=== PATIENT | female | born 1995 | race Caucasian/White ===

== ENCOUNTER → 2022-03-10 | Outpatient (CLI) | payer MEDICAID, SELFPAY ==
[2022-03-10 16:12] LABS: Amphetamine Urine VISTA NEGATIVE (<1000 ng/mL); Barbiturate Urine VISTA NEGATIVE (< 200 ng/mL); Benzodiazepine Urine VISTA NEGATIVE (< 200 ng/mL); Cocaine Urine VISTA NEGATIVE (< 300 ng/mL); Ecstacy Urine VISTA NEGATIVE (< 500 ng/mL); Methadone Urine VISTA NEGATIVE (< 300 ng/mL); PCP Urine VISTA NEGATIVE (< 25 ng/mL); THC Urine VISTA NEGATIVE (< 50 ng/mL); Vista UDS pH Range 7
[2022-03-13 14:08] LABS: Chlamydia By Nucleic Acid AMP Negative (Negative)
[2022-03-13 14:12] LABS: Gonococcus By Nucleic Acid AMP Negative (Negative)
[2022-03-18 15:07] LABS: HPV Reflexed? NOT INDICATED
== END | disposition home or self-care (01) ==
PROVIDERS: Referring Provider Obstetrics & Gynecology; Visit Provider Obstetrics & Gynecology
DX: Z34.90 Encounter for supervision of normal pregnancy, unspecified, unspecified trimester (principal)
CPT/HCPCS: 80307; 87086; 87088; 87491; 87591; 88175; G0145

== ENCOUNTER → 2022-06-02 | Outpatient (CLI) | payer MEDICAID, SELFPAY ==
[2022-06-02 14:31] LABS: Absolute Lymphocyte Count 1.66 X10^3/uL (0.83-4.51); Basophil# 0.02 X10^3/uL; Basophil% 0.2 % (0-1); Eosinophil# 0.14 X10^3/uL; Eosinophils% 1.4 % (0-5); Hematocrit 34.5 % (37-47); Hemoglobin 11.6 g/dL (12.0-15.0); Lymphocyte # 1.66 X10^3/ul (0.83-4.51); Lymphocyte % 16.1 % (19-41); Mean Corp Hgb Conc 33.6 g/dL (32-36); Mean Corpuscular Hgb 31.1 pg (27.0-32.0); Mean Corpuscular Volume 92.5 fL (81-99); Mean Platelet Vol. 9.3 fl (6.2-12.0); Monocyte# 0.43 X10^3/uL; Monocyte% 4.2 % (0-10); NRBC Flagged by Analyzer 0 % (0-5); Neutrophil # 8.03 X10^3/uL (2.7-7.7); Neutrophil % 77.7 % (47-70); Platelet Count 251 K/mm3 (150-450); RBC Distribution Width SD 44.1 fl (35.1-43.9); Red Blood Count 3.73 M/mm3 (4.2-5.4); White Blood Count 10.3 K/mm3 (4.4-11.0)
[2022-06-02 14:47] LABS: Glucose Challenge Gest 1H 50g 125 mg/dL (70-140)
[2022-06-02 15:49] LABS: HIV - WCH Non-Reactive (Nonreactive); Hepatitis B Surface Antigen Non-Reactive (Nonreactive); Hepatitis C Antibody Non-Reactive (Nonreactive); Rubella IgG Non-Reactive (Nonreactive); Syphilis Antibodies Non-reactive
== END | disposition home or self-care (01) ==
LOC: PAVLAB 13:55 → LAB 13:56
PROVIDERS: Obstetrics & Gynecology; Referring Provider Obstetrics & Gynecology; Visit Provider Obstetrics & Gynecology
DX: Z34.90 Encounter for supervision of normal pregnancy, unspecified, unspecified trimester (principal)
CPT/HCPCS: 36415; 82950; 85025; 86703; 86762; 86780; 86803; 86850; 86900; 86901; 87340

== ENCOUNTER → 2022-08-26 | Outpatient (CLI) | payer MEDICAID, SELFPAY ==
--- NOTE | 2022-09-17 05:28 | HP.PCM.OB_ITS ---
HPI - General HPI Narrative MAREK GALINDO, is a 26 F who presents IAL 10 cm dilated and delivere precipitously Maternal Data Information MILENA Calculator Estimated Delivery Date Method Current WG Current Estimate 09/22/22 LMP (Certain) 39w 2d PFSH PFSH Home Medications multivitamin no.47-iron fum 27 mg-folate no.1 1 mg-dha 300 mg capsule (PNV-DHA) cap PO 03/03/22 [History Last Taken Unknown] Allergy/AdvReac Type Severity Reaction Status Date / Time No Known Allergies Allergy Verified 09/14/22 10:55 Social History adopted: No household members: spouse and children housing: house number of children: 1 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: No pets and animals: No history of recent travel: Yes (December) out of state: Yes out of country: No sexually active: Yes Smoking Status: Never smoker second hand exposure: No alcohol intake: former details: social occasions substance use type: does not use diet: gluten free and lactose free well-balanced diet: daily or most days caffeine: No eating out: 1-3 times/week during the past year weight has: remained stable what type of physical activity do you participate in: walking frequency: 3-4 times per week duration: 45-60 minutes/day dustin/sikh: [employer] seatbelt use: always do you feel safe at home: Yes additional social history: Spouse - Raciel History 2 Elective abortions Hx Para 1 Spontaneous abortions Hx # Term Pregnancies Ectopic pregnancies Hx # Pregnancies Multiple births # of living children 1 Past Pregnancies Del. Date Name GA/Weeks Outcome Route Bth Weight Infant Gen Labor Lgth Anesthesia Del Locatn Provider FOB Unknown 06/16/20 [place] 40 live - full term [facility] [address] [facility] [address] [facility] Delivery Date: Last Updated by: Hannah Strickland Emergency csection due to decels during pushing Visit Details Expected Delivery Route/Plan Labor Preferences- wants to . patient counseled regarding risks/benefits of trial of labor versus repeat . ACOG/uptodate education given to patient. 71% likelihood of success per calculator TOLAC consent form signed: [] CB/BF classes: no labor support person: Raciel labor intervention preferences: [] pain management options preferred: epidural cut cord/dad catch: yes : plans PP control planned: discussed and declines discussed possible routes of delivery and associated risks: [] special requests: [] Plans Covid status: discussed Flu vaccine: discussed Tdap vaccine:discussed and declines Rhogam: n/a LARC form signed:completed Problem list reviewed and updated with the most current plan of care details and appropriate orders placed. Relevant counseling for the gestational age provided. Continue routine care and follow up unless otherwise noted in visit notes/problem list details OB Flowsheet Initial Weight: Not Recorded Date -?-?-?-?-?-?-?-?-?-?-?-?- EGA Weight BP Urine Prot -?-?-?-?-?-?-?-?-?-?-?-?- Glucose FHR FuHt Pres Dilation -?-?-?-?-?-?-?-?-?-?-?-?- Effaced St Visit Note 03/10/22 -?-?-?-?-?-?-?-?-?-?-?-?- 12w 0d 113 lb 6 oz 132/86 -?-?-?-?-?-?-?-?-?-?-?-?- 160 -?-?-?-?-?-?-?-?-?--?-?-?- JV- CRL consiste nt with LMP. deciding on genetic testing. pt lives in [place], will likely do PNL next visit. 04/13/22 -?-?-?-?-?-?-?-?-?-?-?-?- 16w 6d 115 lb 122/80 Negative -?-?-?-?-?-?-?-?-?-?-?-?- Negative 135 -?-?-?-?-?-?-?-?-?-?-?-?- SM- no vb crampi ng doing well, discussed TOLAC. SM- no vb cramping doing wel l, discussed TOLAC. will get labs drawn next visit 05/13/22 -?-?-?-?-?-?-?-?-?-?-?-?- 21w 1d 119 lb 92/72 Negative -?-?-?-?-?-?-?-?-?-?-?-?- Negative 150 21 -?-?-?-?-?-?-?-?-?-?-?-?- SM- no vb lof go od fm no regular ctx SM- no vb lof good fm no reg ular ctx, didn't get labs drawn yet will do next time ordered GCT. reviewed anatomy results 06/02/22 -?-?-?-?-?-?-?-?-?-?-?-?- 24w 0d 123 lb 6 oz 106/74 Nega tive -?-?-?-?-?-?-?-?-?-?-?-?- Negative 145 23 -?-?-?-?-?-?-?-?-?-?-?-?- LC- no vb,ctx,lo f. good fm. rec'd NOB labs today with GCT. 07/20/22 -?-?-?-?-?-?-?-?-?-?-?-?- 30w 6d 129 lb 123/79 Positive -?-?-?-?-?-?-?-?-?-?-?-?- Negative 140 30 -?-?-?-?-?-?-?-?-?-?-?-?- LC- no vb/ctx/lo f. good fm. denies concerns.28 week labs normal. larc signed, declines tdap. 08/11/22 -?-?-?-?-?-?-?-?-?-?-?-?- 34w 0d 135 lb 2 oz 123/75 Nega tive -?-?-?-?-?-?-?-?-?-?-?-?- Negative 145 32 -?-?-?-?-?-?-?-?-?-?--?-?- JV- no lof, vagi nal bleeding,or dec fm. consider growth scan if still measuring small next visit. larc signed. will need to sign consent signed. 08/26/22 -?-?-?-?-?-?-?-?-?-?-?-?- 36w 1d 133 lb 8 oz 118/72 Nega tive -?-?-?-?-?-?-?-?-?-?-?-?- Negative 138 35 Cephalic 0 -?-?-?-?-?-?-?-?-?-?-?-?- -4 -No Vb , LOF. Good FM. No CTX. GBS done 08/26/22 -?-?-?-?-?-?-?-?-?-?-?-?- 36w 1d -?-?-?-?-?-?-?-?-?-?-?-?- -?-?-?-?-?-?-?-?-?-?-?-?- 09/01/22 -?-?-?-?-?-?-?-?-?-?-?-?- 37w 0d 135 lb 4 oz 122/73 -?-?-?-?-?-?-?-?-?-?-?-?- 140 37 -?-?-?-?-?-?-?-?-?-?-?-?- LC- no concerns. good fm. no ctx/lof/vb. gbs negative. 09/09/22 -?-?-?-?-?-?-?-?-?-?-?-?- 38w 1d 135 lb 4 oz 129/74 Nega tive -?-?-?-?-?-?-?-?-?-?-?-?- Negative 145 36 Cephalic -?-?-?-?-?-?-?-?-?-?-?-?- JV- patient decl yanni cx exam today. no lof ,vaginal bleeding, or dec fm. consider growth scan next week if still small for gestational age. or at least an RUTH ANN. discussed and talked about possible rpt if no dilation by 41 weeks. 09/14/22 -?-?-?-?-?-?-?-?-?-?-?-?- 38w 6d 135 lb 4 oz 131/84 Nega tive -?-?-?-?-?-?-?-?-?-?-?-?- Negative 140 39 Cephalic -?-?-?-?-?-?-?-?-?-?-?-?- SM- discussion o f exp mgt vs IOL or RLTCS. discussed possible IOL if favorbale remy score by 41 weeks if no spontaneous labor. NST FHR Rate Baby A Baseline: 140 Variability:: Moderate Decelerations:: None NST Reactive:: Yes Uterine Activity:: q3-5 ROS Constitutional Constitutional: Reports systems reviewed and no addt'l complaints, except as documented ENT HEENT: Reports systems reviewed and no addt'l complaints, except as documented Cardiovascular Cardiovascular: Reports systems reviewed and no addt'l complaints, except as documented Respiratory/Chest Respiratory/Chest: Reports systems reviewed and no addt'l complaints, except as documented Gastrointestinal Gastrointestinal: Reports systems reviewed and no addt'l complaints, except as documented and nausea; Denies abdominal pain Genitourinary Genitourinary: Reports systems reviewed and no addt'l complaints, except as documented, contractions Details: present and frequency (regular ) and movement Details: present Musculoskeletal Musculoskeletal: Reports systems reviewed and no addt'l complaints, except as documented Integumentary Integumentary: Reports as per HPI Neurologic Neurologic: Reports systems reviewed and no addt'l complaints, except as documented Endocrine Endocrinology: Reports systems reviewed and no addt'l complaints, except as documented Physical Exam Const alert, oriented x3 and healthy appearing Constitutional Narrative: uncomfortable with contractions HEENT normocephalic and moist oral mucous membranes Head and Scalp: atraumatic Neck full ROM, no lymphadenopathy, supple and thyroid normal General: trachea midline Thyroid: thyroid normal Lymph Lymphatic: no lymphadenopathy noted Chest inspection of chest normal Resp normal respiratory effort Cardio regular rate GI normal to inspection, nondistended, normoactive bowel sounds, soft to palpation and non-tender Inspection: gravid external exam normal Bimanual Exam - Vag & Uterus: uterus non-tender Manual OB Exam: estimated gestational size appropriate, presentation cephalic, dilated, effaced and station Extremity normal to inspection General Extremity: Negative for edema Skin no rashes or lesions noted Neuro deep tendon reflexes 2+ bilaterally Motor Exam: strength 5/5 throughout and clonus absent Psych mental status grossly normal Labs Labs Labs: Blood Type A POSITIVE Antibody Screen NEGATIVE Hct 35.4 % (37-47) L Hgb 11.1 g/dL (12.0-15.0) L Syphilis Total Ab Non-reactive Rubella IgG Antibody Non-Reactive (Nonreactive) Hep Bs Antigen Non-Reactive (Nonreactive) Chlamydia DNA (MAXIMILIANO) Negative (Negative) Neisseria gonorrhoeae DNA (MAXIMILIANO) Negative (Negative) HIV 1&2 Antibody Non-Reactive (Nonreactive) Glucose 1 Hr 50 gm 125 mg/dL (70-140) Assessment & Plan (1) Rubella non-immune status, antepartum: COMMENT: MMR pp (2) History of section: COMMENT: desires TOLAC. 71% success. cs due to FHT, never pushed. (3) Supervision of normal : COMMENT: [id number], MILENA [birth year] girl [place], Spouse Raciel (4) : QUALIFIERS: Weeks of gestation: 38 weeks Qualified Code(s): Z3A.38 - 38 weeks gestation of COMMENT: Neg GBS. nl anatomy, declined NIPT & Carrier testing, ntd screen. (5) Vaginal after : COMMENT: SM 40 girl [place] PLAN: admit IAL
--- NOTE | 2022-09-17 05:30 | EX.PCM.OBRPT ---
Assessment & Plan (1) Vaginal after : COMMENT: SM 40 girl [place] Maternal Data Information MILENA Calculator Estimated Delivery Date Method Current WG Current Estimate 09/22/22 LMP (Certain) 39w 2d Vaginal Delivery Operative Information Date of Procedure: 09/17/22 Pre-Operative Diagnosis: see a/p diagnoses Post-Operative Diagnosis: same Surgery / Procedure Performed: Type of Anesthesia: Epidural Special Medications: none Estimated Blood Loss: 400 Fluids Replaced: crystalloid Findings Description of Procedure: Patient began pushing and delivered the head in the HELENA presentation. The head was delivered atraumatically . The anterior and posterior shoulders delivered without complication followed by the rest of the and the was placed on the maternal abdomen. Delayed cord clamping was employed for approximately 60 seconds. Cord was clamped and cut and gentle traction was applied to the cord and the placenta delivered spontaneously immediately following it was noted to be intact with three-vessel cord. The perineum and vagina were inspected and noted to have a second degree perineal laceration which was repaired in the usual fashion with 3-0 vicryl rapide. . EBL was 400 mild atony with ptiocin and methergine was treated. Patient and infant tolerated delivery well. Amniotic Fluid Description: Clear Placental Delivery Description: Spontaneous Placenta Disposition: [facility] Cord Vessel Description: 3 Vessels Cord Entanglement: None Delayed Cord Clamping: Yes Post Vaginal Delivery Medications Given After Delivery: - (Pitocin) Episiotomy Description: None Complication Complications: None Procedures Urinary/Genital [id number]: [id number] care after delivery(PIEDAD)
--- NOTE | 2022-09-17 05:31 | DCINST_ITS ---
Discharge Instructions Diet Discharge Diet: No restrictions Activity Discharge Activity: Return to Normal Activity, May Drive, May Shower and May Take a Tub Bath (in 4 weeks) May resume sexual activity in: 6-8 weeks (after seen by OB provider) Weight Bearing Status: Full weight bearing Lifting Restrictions: none Dressing / Incision Call your doctor if you observe: Fever of 101 or Higher, Inability to urinate, Using more than 1 pad per hour (for more than 2 hours in a row or more), Shortness of breath, Dizziness, Chest pain and - (headache not controlled with tylenol, change in vision) Follow Up Care When: in 6 weeks for visit, call the office to make the appointment. If you had elevated blood pressures call the office to be seen within 1 week. Test Results: Test results from this visit will be discussed in further detail at your follow- up appointment, if applicable. Discharge Plan Admission Attending Provider: Juana Stover NP Primary Care Provider: Care Physician,Laura Primary Discharge Date/Time: 08/26/22 Discharge Orders/Prescriptions Prescriptions: No Action PNV-DHA 27 mg iron-1 mg -300 mg capsule PO Disposition Patient Disposition: Home, Self Care
== END | disposition home or self-care (01) ==
LOC: LABSPEC 12:08
PROVIDERS: Referring Provider Nurse Practitioner Women's Health; Visit Provider Nurse Practitioner Women's Health
DX: Z34.90 Encounter for supervision of normal pregnancy, unspecified, unspecified trimester (principal)
CPT/HCPCS: 87081

== ENCOUNTER 2022-09-17 04:45 | Inpatient (IN) | payer MEDICAID, SELFPAY ==
[2022-09-17] VITALS (39 sets, daily range): BP systolic 96–142; BP diastolic 45–83; PULSE 60–97; RESP 16–18; TEMP 36.4–37.3; O2SAT 91–100
[2022-09-17] MEDS: Lactated Ringers 1,000 ML 50 ML IV (05:00)
[2022-09-17] MEDS: Lidocaine 1% (20 ml mdv) 20 ML Vial INFILT (05:10)
[2022-09-17] MEDS: Oxytocin 10 UNITS/ML Vial IM (05:11)
[2022-09-17] MEDS: Oxytocin 15 Units/NS 250ml 15 UNITS/250 ML IV.SOLN 83 UNITS IV (05:12)
[2022-09-17] MEDS: Methylergonovine 0.2 MG/ML Ampul IM (05:17)
[2022-09-17 05:23] LABS: Absolute Lymphocyte Count 1.99 X10^3/uL (0.83-4.51); Absolute Neutrophil Count 9.4 X10^3/uL (2.0-7.7); Basophil# 0.03 X10^3/uL; Basophil% 0.2 % (0-1); Eosinophil# 0.03 X10^3/uL; Eosinophils% 0.2 % (0-5); Hematocrit 35.4 % (37-47); Hemoglobin 11.1 g/dL (12.0-15.0); Lymphocyte # 1.99 X10^3/ul (0.83-4.51); Lymphocyte % 16.5 % (19-41); Mean Corp Hgb Conc 31.4 g/dL (32-36); Mean Corpuscular Volume 82.9 fL (81-99); Mean Platelet Vol. 10.3 fl (6.2-12.0); Monocyte# 0.56 X10^3/uL; Monocyte% 4.6 % (0-10); NRBC Flagged by Analyzer 0 % (0-5); Neutrophil # 9.38 X10^3/uL (2.7-7.7); Neutrophil % 77.8 % (47-70); Platelet Count 267 K/mm3 (150-450); RBC Distribution Width CV 14.1 % (11.6-14.6); Red Blood Count 4.27 M/mm3 (4.2-5.4); White Blood Count 12.1 K/mm3 (4.4-11.0)
--- NOTE | 2022-09-17 05:36 | PCM.HP.BLA ---
History and Physical HPI - General HPI Narrative MAREK GALINDO, is a 26 F who presents IAL 10 cm dilated and delivere precipitously Maternal Data Information MILENA Calculator ? Estimated Delivery Date Method Current WG Current Estimate 09/22/22 LMP (Certain) 39w 2d PFSH PFSH Home Medications multivitamin no.47-iron fum 27 mg-folate no.1? 1 mg-dha 300 mg capsule (PNV-DHA) cap PO 03/03/22 [History Last Taken Unknown] Allergy/AdvReac Type Severity Reaction Status Date / Time No Known Allergies Allergy ? ? Verified 09/14/22 10:55 Social History? adopted:? No household members:? spouse and children housing:? house number of children:? 1 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 status:? 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 No pets and animals:? No history of recent travel:? Yes (December) out of state: Yes out of country: No sexually active:? Yes Smoking Status:? Never smoker second hand exposure:? No alcohol intake:? former details:? social occasions substance use type:? does not use diet:? gluten free and lactose free well-balanced diet:? daily or most days caffeine:? No eating out:? 1-3 times/week during the past year weight has:? remained stable what type of physical activity do you participate in:? walking frequency:? 3-4 times per week duration:? 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 Rastafari seatbelt use:? always do you feel safe at home:? Yes additional social history:? Spouse - Raciel History ? ? ? 2 ? Elective abortions ? Hx Para ? ? ? 1 ? Spontaneous abortions ? Hx # Term Pregnancies ? Ectopic pregnancies ? Hx # Pregnancies ? Multiple births ? # of living children ? ? ? 1 Past Pregnancies Del. Date Name GA/Weeks Outcome Route Bth Weight Gen Labor Lgth Anesthesia Del Locatn Provider FOB Unknown 06/16/20 [place] 40 live - full term 7# 15 oz Male [address] [place] [address] Bert Schrader Delivery Date:?? Last Updated by: Hannah Strickland ? ? ? Emergency csection due to decels during pushing Visit Details Expected Delivery Route/Plan Labor Preferences- wants to . patient counseled regarding risks/benefits of trial of labor versus repeat .? ACOG/uptodate education given to patient.? 71% likelihood of success per calculator TOLAC consent form signed: [] CB/BF classes: no labor support person: Raciel labor intervention preferences: [] pain management options preferred: epidural cut cord/dad catch: yes : plans PP control planned: discussed and declines discussed possible routes of delivery and associated risks: [] special requests: [] Plans Covid status: discussed Flu vaccine: discussed Tdap vaccine:discussed and declines Rhogam: n/a LARC form signed:completed Problem list reviewed and updated with the most current plan of care details and appropriate orders placed.? Relevant counseling for the gestational age provided. Continue routine care and follow up unless otherwise noted in visit notes/problem list details OB Flowsheet Initial Weight:?Not Recorded Date <del>?</del> EGA Weight BP Urine Prot <del>?</del> Glucose FHR FuHt Pres Dilation <del>?</del> Effaced St Visit Note 03/10/22<del>?</del> 12w 0d 113 lb 6 oz 132/86 <del>?</del> ? 160 ? ? <del>?</del> ? ? JV- CRL consistent with LMP. deciding on genetic testing. pt lives in [place], will likely do PNL next visit. 04/13/22<del>?</del> 16w 6d 115 lb 122/80 Negative <del>?</del> Negative 135 ? ? <del>?</del> ? ? SM- no vb cramping doing well, discussed TOLAC. SM- no vb cramping doing well, discussed TOLAC. will get labs drawn next visit 05/13/22<del>?</del> 21w 1d 119 lb 92/72 Negative <del>?</del> Negative 150 21 ? <del>?</del> ? ? SM- no vb lof good fm no regular ctx SM- no vb lof good fm no regular ctx, didn't get labs drawn yet will do next time ordered GCT. reviewed anatomy results 06/02/22<del>?</del> 24w 0d 123 lb 6 oz 106/74 Negative <del>?</del> Negative 145 23 ? <del>?</del> ? ? LC- no vb,ctx,lof. good fm. rec'd NOB labs today with GCT. 07/20/22<del>?</del> 30w 6d 129 lb 123/79 Positive <del>?</del> Negative 140 30 ? <del>?</del> ? ? LC- no vb/ctx/lof. good fm. denies concerns.28 week labs normal. larc signed, declines tdap. 08/11/22<del>?</del> 34w 0d 135 lb 2 oz 123/75 Negative <del>?</del> Negative 145 32 ? <del>?</del> ? ? JV- no lof, vaginal bleeding,or dec fm. consider growth scan if still measuring small next visit. larc signed. will need to sign consent signed. 08/26/22<del>?</del> 36w 1d 133 lb 8 oz 118/72 Negative <del>?</del> Negative 138 35 Cephalic 0<del>?</del> ? -4 MH-No Vb, LOF. Good FM. No CTX.? GBS done 08/26/22<del>?</del> 36w 1d ? ? <del>?</del> ? <del>?</del> ? ? ? 09/01/22<del>?</del> 37w 0d 135 lb 4 oz 122/73 <del>?</del> ? 140 37 ? <del>?</del> ? ? LC- no concerns. good fm. no ctx/lof/vb. gbs negative. 09/09/22<del>?</del> 38w 1d 135 lb 4 oz 129/74 Negative <del>?</del> Negative 145 36 Cephalic <del>?</del> ? ? JV- patient declines cx exam today. no lof ,vaginal bleeding, or dec fm. consider growth scan next week if still small for gestational age. or at least an RUTH ANN. discussed and talked about possible rpt if no dilation by 41 weeks. 09/14/22<del>?</del> 38w 6d 135 lb 4 oz 131/84 Negative <del>?</del> Negative 140 39 Cephalic <del>?</del> ? ? SM- discussion of exp mgt vs IOL or RLTCS.? discussed possible IOL if favorbale remy score by 41 weeks if no spontaneous labor. NST FHR Rate Baby A Baseline: 140 Variability:: Moderate Decelerations:: None NST Reactive:: Yes Uterine Activity:: q3-5 ROS Constitutional Constitutional: Reports systems reviewed and no addt'l complaints, except as documented ENT HEENT: Reports systems reviewed and no addt'l complaints, except as documented Cardiovascular Cardiovascular: Reports systems reviewed and no addt'l complaints, except as documented Respiratory/Chest Respiratory/Chest: Reports systems reviewed and no addt'l complaints, except as documented Gastrointestinal Gastrointestinal: Reports systems reviewed and no addt'l complaints, except as documented and nausea; Denies abdominal pain Genitourinary Genitourinary: Reports systems reviewed and no addt'l complaints, except as documented, contractions Details: present and frequency (regular ) and movement Details: present Musculoskeletal Musculoskeletal: Reports systems reviewed and no addt'l complaints, except as documented Integumentary Integumentary: Reports as per HPI Neurologic Neurologic: Reports systems reviewed and no addt'l complaints, except as documented Endocrine Endocrinology: Reports systems reviewed and no addt'l complaints, except as documented Physical Exam Const alert, oriented x3 and healthy appearing Constitutional Narrative: uncomfortable with contractions HEENT normocephalic and moist oral mucous membranes Head and Scalp: atraumatic Neck full ROM, no lymphadenopathy, supple and thyroid normal General: trachea midline Thyroid: thyroid normal Lymph Lymphatic: no lymphadenopathy noted Chest inspection of chest normal Resp normal respiratory effort Cardio regular rate GI normal to inspection, nondistended, normoactive bowel sounds, soft to palpation and non-tender Inspection: gravid external exam normal Bimanual Exam - Vag & Uterus: uterus non-tender Manual OB Exam: estimated gestational size appropriate, presentation cephalic, dilated, effaced and station Extremity normal to inspection General Extremity: Negative for edema Skin no rashes or lesions noted Neuro deep tendon reflexes 2+ bilaterally Motor Exam: strength 5/5 throughout and clonus absent Psych mental status grossly normal Labs Labs Labs: ?? ? Blood Type A POSITIVE ?? ? Antibody Screen NEGATIVE ?? ? Hct 35.4 % (37-47)? L ?? ? Hgb 11.1 g/dL (12.0-15.0)? L ?? ? Syphilis Total Ab Non-reactive ?? ? Rubella IgG Antibody Non-Reactive? (Nonreactive) ?? ? Hep Bs Antigen Non-Reactive? (Nonreactive) ?? ? Chlamydia DNA (MAXIMILIANO) Negative? (Negative) ?? ? Neisseria gonorrhoeae DNA (MAXIMILIANO) Negative? (Negative) ?? ? HIV 1&2 Antibody Non-Reactive? (Nonreactive) ?? ? Glucose 1 Hr 50 gm 125 mg/dL (70-140) Assessment & Plan (1) Rubella non-immune status, antepartum: COMMENT: ? ? ? MMR pp (2) History of section: COMMENT: ? ? ? desires TOLAC. 71% success. cs due to FHT, never pushed. (3) Supervision of normal : COMMENT: ? ? ? [id number], MILENA [birth year] girl [place], Spouse Raciel (4) : QUALIFIERS: ?Weeks of gestation:?38 weeks? Qualified Code(s):?Z3A.38 - 38 weeks gestation of COMMENT: ? ? ? Neg GBS. nl anatomy, declined NIPT & Carrier testing, ntd screen. (5) Vaginal after : COMMENT: ? ? ? SM 40 girl [place] PLAN: admit IAL
--- NOTE | 2022-09-17 05:37 | EX.PCM.OBRPT ---
Maternal Data Information MILENA Calculator Estimated Delivery Date Method Current Current Estimate 09/22/22 LMP (Certain) 39w 2d Addendum Addendum: [facility] Medical Records Department [address] [place] [address] Operative Report 09/17/22529 MR#:? [id number] Acct: [id number] Name: MAREK GALINDO Rep #: [id number] :? 1995 26 From:? Tiki Hartley MD PCP: Care Physician,No Primary ? Status: DEP CLI Location: [facility] Assessment & Plan (1) Vaginal after : COMMENT: ? ? ? SM 40 girl [place] Maternal Data Information MILENA Calculator ? Estimated Delivery Date Method Current Current Estimate 09/22/22 LMP (Certain) 39w 2d Vaginal Delivery Operative Information Date of Procedure: 09/17/22 Pre-Operative Diagnosis: see a/p diagnoses Post-Operative Diagnosis: same Surgery / Procedure Performed: Type of Anesthesia: Epidural Special Medications: none Estimated Blood Loss: 400 Fluids Replaced: crystalloid Findings Description of Procedure: Patient began pushing and delivered the head in the HELENA presentation.? The head was delivered atraumatically .? The anterior and posterior shoulders delivered without complication followed by the rest of the infant and the was placed on the maternal abdomen.? Delayed cord clamping was employed for approximately 60 seconds.? Cord was clamped and cut and gentle traction was applied to the cord and the placenta delivered spontaneously immediately following it was noted to be intact with three-vessel cord.? The perineum and vagina were inspected and noted to have a second degree perineal laceration which was repaired in the usual fashion with 3-0 vicryl rapide. .? EBL was 400 mild atony with ptiocin and methergine was treated.? Patient and tolerated delivery well. Amniotic Fluid Description: Clear Placental Delivery Description: Spontaneous Placenta Disposition: [facility] Cord Vessel Description: 3 Vessels Cord Entanglement: None Delayed Cord Clamping: Yes Post Vaginal Delivery Medications Given After Delivery: - (Pitocin) Episiotomy Description: None Complication Complications: None Procedures Urinary/Genital 52xxx-59xxx: [id number] care after delivery(PIEDAD) 09/17/22 05 <Electronically signed by Tiki Hartley MD> Cosigner Signature (if applicable): ? CC: ? PRESS OFFBEARER-C Juana Stover; Dr. Tiki Hartley MD; No Primary? Care Physician~ Signed Procedures Urinary/Genital 52xxx-59xxx: [id number] care after delivery(PIEDAD)
--- NOTE | 2022-09-17 05:40 | DCINST_ITS ---
Discharge Instructions Diet Discharge Diet: No restrictions Activity Discharge Activity: Return to Normal Activity, May Drive, May Shower and May Take a Tub Bath (in 4 weeks) May resume sexual activity in: 6-8 weeks (after seen by OB provider) Weight Bearing Status: Full weight bearing Lifting Restrictions: none Dressing / Incision Call your doctor if you observe: Fever of 101 or Higher, Inability to urinate, Using more than 1 pad per hour (for more than 2 hours in a row or more), Shortness of breath, Dizziness, Chest pain and - (headache not controlled with tylenol, change in vision) Follow Up Care When: in 6 weeks for visit, call the office to make the appointment. If you had elevated blood pressures call the office to be seen within 1 week. Test Results: Test results from this visit will be discussed in further detail at your follow- up appointment, if applicable. Discharge Plan Admission Admit Date/Time: 09/17/22 04:45 Attending Provider: Tiki Hartley Primary Care Provider: Care Physician,Laura Primary Discharge Orders/Prescriptions Prescriptions: No Action PNV-DHA 27 mg iron-1 mg -300 mg capsule PO Referrals / Follow Up: Care Physician,No Primary [Primary Care Provider] -
[2022-09-17 06:11] LABS: Syphilis Antibodies Non-reactive
[2022-09-17] MEDS: Naproxen 500 MG Tablet PO ×3 (07:01→23:55)
[2022-09-17] MEDS: Acetaminophen 500 MG Tablet 1000 MG PO ×2 (12:52→19:24)
[2022-09-17] MEDS: Senna/Docusate Sodium 1 Tablet PO (12:53)
[2022-09-17] MEDS: Benzocaine/Lanolin/Aloe Vera 1 SPRAY EACH TOPICAL (23:59)
[2022-09-18 04:55] VITALS: BP 109/51; PULSE 100; RESP 16; TEMP 36.6; O2SAT 100
[2022-09-18 08:10] VITALS: BP 109/61; PULSE 80; RESP 16; TEMP 36.7; O2SAT 99
[2022-09-18] MEDS: Acetaminophen 500 MG Tablet 1000 MG PO (08:20)
--- NOTE | 2022-09-18 10:17 | PN.OBGYN_ITS ---
Subjective Subjective Patient doing well without complaints. Tolerating PO. Ambulating and voiding without difficulty. Feeding well. Denies chest pain, shortness of breath, calf pain/swelling, fevers, chills, lightheadedness. Objective Data Objective Data Vital Signs: Vital Signs Temp Pulse Resp BP Pulse Ox O2 Del Method 98.1 F 80 16 109/61 99 Room Air 09/18/22 08:10 09/18/22 08:10 09/18/22 08:10 09/18/22 08:10 09/18/22 08:10 09/18/22 08:10 Oxygen Delivery Method Room Air Intake & Output: Intake and Output for Last 24 Hours 09/16/22 09/17/22 09/18/22 23:59 23:59 23:59 Intake Total 16.35 / 16.35 Output Total 1050 / 1050 Balance -1033.65 / -1033.65 Lab / Micro Data Result Diagrams: 09/17/22 05:00 ROS Constitutional Constitutional: Denies chills, fatigue, fever(s), poor appetite or weakness Eyes Eyes: Denies blurry vision, change in vision, seeing flashes or spots in vision ENT HEENT: Denies dizziness, headache(s), loss taste/smell or sore throat Cardiovascular Cardiovascular: Denies chest pain, dizziness, dyspnea, irregular heart rhythm, palpitations or rapid heart rate Respiratory/Chest Respiratory/Chest: Denies chest tightness, cough, dyspnea or breast pain Gastrointestinal Gastrointestinal: Denies abdominal pain, constipation or vomiting Genitourinary Genitourinary: Denies dysuria or flank pain Musculoskeletal Musculoskeletal: Denies difficulty walking, joint pain, limited range of motion or numbness Neurologic Neurologic: Denies abnormal movements, abnormal speech, dizziness, numbness, seizure-like activity or syncope Psychiatric Psychiatric: Denies anxiety, behavioral changes, change in appetite, confusion, depression or suicidal thoughts Physical Exam Const alert, oriented x3 and no apparent distress General Appearance: cooperative and comfortable Resp normal respiratory effort Cardio regular rate GI normal to inspection, nondistended, normoactive bowel sounds GI Narrative: uterus is firm below umbilicus Palpation: soft Back/Spine no CVA tenderness and thoraco-lumbar ROM normal Extremity normal to inspection, no clubbing, cyanosis or edema, no calf tenderness and no pedal edema Psych mental status grossly normal, thought process normal, cooperative, affect normal, speech normal, activity/motor behavior normal, denies homicidal ideation and denies suicidal ideation Assessment & Plan (1) Vaginal after : COMMENT: SM 42 girl [place] PLAN: s/p PPD # 1 successful precip delivery 1. routine post delivery care 2. breast feeding- support given 3. rh positive 4. rubella immune 5. pt wants to go home today.
[2022-09-18] MEDS: Naproxen 500 MG Tablet PO (10:49)
== END 2022-09-18 11:10 | disposition home or self-care (01) | DRG 560 ==
PROVIDERS: Admitting Provider Obstetrics & Gynecology; Visit Provider Obstetrics & Gynecology
DX: O34.219 Maternal care for unspecified type scar from previous cesarean delivery (principal); Z37.0 Single live birth; O62.2 Other uterine inertia; O62.3 Precipitate labor; O70.1 Second degree perineal laceration during delivery; Z3A.39 39 weeks gestation of pregnancy; Z87.59 Personal history of other complications of pregnancy, childbirth and the puerperium
CPT/HCPCS: 59025; 59050; 85025; 86780; 86850; 86900; 86901; 99221; J7120; G0378

== ENCOUNTER → 2024-09-14 | Outpatient (CLI) | payer MEDICAID, SELFPAY ==
[2024-09-14 12:17] LABS: Absolute Lymphocyte Count 2.16 X10^3/uL (0.83-4.51); Absolute Neutrophil Count 7.1 X10^3/uL (2.0-7.7); Basophil# 0.03 X10^3/uL; Basophil% 0.3 % (0-1); Eosinophil# 0.07 X10^3/uL; Eosinophils% 0.7 % (0-5); Hematocrit 39.3 % (37-47); Hemoglobin 13.5 g/dL (12.0-15.0); Lymphocyte # 2.16 X10^3/ul (0.83-4.51); Mean Corp Hgb Conc 34.4 g/dL (32-36); Mean Corpuscular Hgb 30.1 pg (27.0-32.0); Mean Corpuscular Volume 87.7 fL (81-99); Mean Platelet Vol. 9.9 fl (6.2-12.0); Monocyte% 4.1 % (0-10); NRBC Flagged by Analyzer 0 % (0-5); Neutrophil # 7.14 X10^3/uL (2.7-7.7); Neutrophil % 72.5 % (47-70); Platelet Count 268 K/mm3 (150-450); RBC Distribution Width CV 13.2 % (11.6-14.6); RBC Distribution Width SD 42.5 fl (35.1-43.9); Red Blood Count 4.48 M/mm3 (4.2-5.4); White Blood Count 9.8 K/mm3 (4.4-11.0)
[2024-09-14 12:41] LABS: HIV Nonreactive (Nonreactive); Hepatitis B Surface Antigen Nonreactive (Nonreactive); Hepatitis C Antibody Nonreactive (Nonreactive); Rubella IgG Nonreactive (Nonreactive); Syphilis Antibodies Nonreactive (Nonreactive)
[2024-09-17 20:08] LABS: Chlamydia By Nucleic Acid AMP Negative (Negative); Gonococcus By Nucleic Acid AMP Negative (Negative)
== END | disposition home or self-care (01) ==
LOC: BWCLAB 11:04
PROVIDERS: Obstetrics & Gynecology; Referring Provider Advanced Practice Midwife; Visit Provider Advanced Practice Midwife
DX: Z34.90 Encounter for supervision of normal pregnancy, unspecified, unspecified trimester (principal)
CPT/HCPCS: 36415; 85025; 86703; 86762; 86780; 86803; 86850; 86900; 86901; 87086; 87340; 87491; 87591

== ENCOUNTER → 2025-01-10 | Outpatient (CLI) | payer MEDICAID, SELFPAY ==
[2025-01-10 17:06] LABS: Absolute Lymphocyte Count 2.16 X10^3/uL (0.83-4.51); Absolute Neutrophil Count 9.2 X10^3/uL (2.0-7.7); Basophil# 0.02 X10^3/uL; Basophil% 0.2 % (0-1); Eosinophils% 0.8 % (0-5); Hematocrit 33.6 % (37-47); Hemoglobin 11.2 g/dL (12.0-15.0); Lymphocyte # 2.16 X10^3/ul (0.83-4.51); Lymphocyte % 17.9 % (19-41); Mean Corp Hgb Conc 33.3 g/dL (32-36); Mean Corpuscular Hgb 31.1 pg (27.0-32.0); Mean Corpuscular Volume 93.3 fL (81-99); Mean Platelet Vol. 9.4 fl (6.2-12.0); Monocyte# 0.52 X10^3/uL; Monocyte% 4.3 % (0-10); NRBC Flagged by Analyzer 0 % (0-5); Neutrophil # 9.22 X10^3/uL (2.7-7.7); Neutrophil % 76.1 % (47-70); Platelet Count 223 K/mm3 (150-450); RBC Distribution Width CV 12.4 % (11.6-14.6); RBC Distribution Width SD 42.1 fl (35.1-43.9); White Blood Count 12.1 K/mm3 (4.4-11.0)
[2025-01-10 17:50] LABS: Glucose Challenge Gest 1H 50g 101 mg/dL (70-140); HIV Nonreactive (Nonreactive); Syphilis Antibodies Nonreactive (Nonreactive)
== END | disposition home or self-care (01) ==
PROVIDERS: Referring Provider Obstetrics & Gynecology; Visit Provider Obstetrics & Gynecology
DX: Z34.82 Encounter for supervision of other normal pregnancy, second trimester (principal)
CPT/HCPCS: 36415; 82950; 85025; 86703; 86780

== ENCOUNTER → 2025-03-14 | Outpatient (CLI) | payer MEDICAID, SELFPAY ==
--- OUTSIDE RECORDS SUMMARY | 2025-03-14 18:13 | XMS RPT_ITS | CCD ---
Author Organization [facility] CliniSyct Care Team Providers Care Heating Unit Mechanic Name Role Phone Care Physician, No Primary Primary Care Provider Unavailable Care Physician, No Primary Referring Provider Un available Dr. Chichi Jimenez Attending Provider [phone] Unavailable Primary Care Provider UnavailVERONICA Rousseau Attending Unavailable Care Physician, No Primary Primary Care Provider Unavailable Care Physician, No Primary Referring Provider Un available Dr. Chichi Jimenez Attending Provider [phone] Dr. Tiki Dillon Attending Provider [phone] PARVIZ Bermudez Attending Provider Care Physician, No Primary Primary Care Provider Unavailable Care Physician, No Primary Referring Provider Un available Dr. Chichi Jimenez Attending Provider [phone] Ck DISTRICT ADVISER, DISTRICT ADVISER-C Smiley Attending Provider [phone] Dr. Tiki Dillon Attending Provider [phone] Ck DISTRICT ADVISER, DISTRICT ADVISER-C Smiley Referring Provider [phone] Ck DISTRICT ADVISER, DISTRICT ADVISER-C Smiley Other Provider Dr. Tiki Dillon Admit Provider [phone] Dr. Tiki Dillon Other Provider Care Physician, No Primary Primary Care Provider Unavailable Care Physician, No Primary Referring Provider Un available Mounika Treviño CNM Attending Provider [phone] Mounika Treviño CNM Referring Provider [phone] KEV WHEAT MD Attending Unavailable FRANNY ARELLANO MD Primary Care Unavailable FRANNY ARELLANO MD Primary Care Unavailable CHUN JOHN Attending Unavaila ble Ck DISTRICT ADVISER-Smiley Baldwin Attending Provider [phone] Naeem LOMELI, Dr. [place] Attending Provider [phone] Chichi Jimenez DO Attending Provider Dr. Chichi Jimenez DO Referring Provider Care Physician, No Primary Primary Care Provider Unavailable Care Physician, No Primary Referring Provider Un available Care Physician, No Primary Primary Care Provider Unavailable Care Physician, No Primary Referring Provider Un available Smiley Oconnor Attending Provider [phone] Care Physician, No Primary Primary Care Provider Unavailable Care Physician, No Primary Referring Provider Un available Naeem LOMELI, Dr. [place] Attending Provider [phone] Mounika Treviño CNM Attending Provider [phone] Mounika Treviño Attending Unavailable Care Physician, No Primary Referring Unava ilable Care Physician, No Primary Primary Care Unava ilable Mounika Treviño Attending Unavailable Care Physician, No Primary Primary Care Unava ilable Care Physician, No Primary Referring Unava ilable Care Physician, No Primary Primary Care Unava ilable Ck DISTRICT ADVISER, Smiley Attending Unavailable Care Physician, No Primary Referring Unava ilable Care Physician, No Primary Primary Care Unava ilable Tiki Dillon Attending Unavailable Care Physician, No Primary Referring Unava ilable Care Physician, No Primary Primary Care Unava ilable Chichi Jimenez Attending Unavailabl e Care Physician, No Primary Referring Unava ilable Care Physician, No Primary Primary Care Unava ilable [place] DISTRICT ADVISER, Smiley Attending Unavailable Care Physician, No Primary Referring Unava ilable Ck DISTRICT ADVISER, Smiley Attending Unavailable Care Physician, No Primary Referring Unava ilable Care Physician, No Primary Primary Care Unava ilable Chichi Jimenez Attending Unavailabl e Chichi Jimenez Referring Unavailabl e Care Physician, No Primary Primary Care Unava ilable Mounika Treviño Attending Unavailable Mounika Treviño Referring Unavailable Care Physician, No Primary Primary Care Unava ilable Care Physician, No Primary Referring Unava ilable Ck DISTRICT ADVISER, Smiley Attending Unavailable Care Physician, No Primary Primary Care Unava ilable Tiki Dillon Attending Unavailable Care Physician, No Primary Referring Unava ilable Care Physician, No Primary Primary Care Unava ilable Care Physician, No Primary Referring Unava ilable Chichi Jimenez Attending Unavailabl e Care Physician, No Primary Primary Care Unava ilable SMILEY CONTE Referring Unavailable JUAN LOCO Attending Unavailable TIKI DILLON Referring UnavailSHAYNA Delgado Attending Unavailable MOUNIKA TREVIÑO Referring Unavailable SHAYNA HAHN Attending Unavailable Medications Current Medications Medication Drug Class(es) Dates Sig (Normalized) Sig (Original) Mv-Mins 67-Zgzg-Fcrxy No.1-Dha (Pnv-Westpoint) 28-1-300 mg capsule (8 sources) Start: 08-24-2024 Mv-Mins 74-Nsql-Axvzj No.1-Dha (Pnv-Westpoint) 28-1-300 mg capsule Active NMA PO August 24, 2024 1:00am Completed/Discontinued Medications Medication Drug Class(es) Dates Sig (Normalized) Sig (Original) hydrocortisone 0.025 mg/mg topical ointment (1 source) Corticosteroid Start: 04-07-2022 hydrocortisone 2.5 % ointment Indications: Flexural atopic dermatitis Apply to affected area twice daily as needed. To be used on your face only, do not use for more than 14 consecutive days 28.35 g 5 04/07/2022 Active Comment on above: Apply to affected ar ea twice daily as needed. To be used on your face only, do not use for more than 14 consecutive days Lactobacillus acidophilus (1 source) Lactobacillus acidophilus (PROBIOTIC ORAL) Take by mouth. 0 Active Comment on above: Take by mouth. Multivit 92-Rdvh-Cntdzr 1-Dha (Pnv-Dha) 27 mg iron-1 mg -300 mg capsule (11 sources) Start: 03-03-2022 End: 08-24-2024 Multivit 27-Wjdb-Couhed 1-Dha (Pnv-Dha) 27 mg iron-1 mg -300 mg capsule Discontinued 1 NMA PO DAILY March 03, 2022 12:00am August 24, 2024 2:44pm Check with primary doctor Start: 03-03-2022 End: 08-24-2024 Multivit 75-Sfxa-Snjdmm 1-Dh a (Pnv-Dha) 27 mg iron-1 mg -300 mg capsule Discontinued 1 NMA PO DAILY March 03, 2022 12:00am August 24, 2024 2:44pm Start: 03-03-2022 take 1 capsule by mo uth once daily Multivit 37-Sotv-Pekcme 1-Dha (Pnv-Dha) 27 mg iron-1 mg -300 mg capsule Active 1 CAP PO DAILY March 02, 2022 11:00pm Start: 03-03-2022 Multivit 47-Ir on-Folate 1-Dha (Pnv-Dha) 27 mg iron-1 mg -300 mg capsule Active CAP PO March 02, 2022 11:00pm Start: 03-03-2022 Multivit 47-Ir on-Folate 1-Dha (Pnv-Dha) 27 mg iron-1 mg -300 mg capsule Active CAP PO March 03, 2022 12:00am naproxen 500 mg oral tablet (9 sources) Nonsteroidal Anti-inflammatory Drug Start: 09-18-2022 End: 08-24-2024 take 1 tablet by mouth twice daily as needed for pain Naproxen 500 mg tablet Discontinued 500 mg PO TWICE A DAY as needed for pain 20 0 September 18, 2022 1:00am August 24, 2024 2:43pm vit no.124/iron/folic ( VITAMIN ORAL) (1 source) vit no.124/iron/folic ( VITAMIN ORAL) Take by mouth. 0 Active Comment on above: Take by mouth. triamcinolone acetonide 0.001 mg/mg topical ointment (1 source) Corticosteroid Start: 04-07-2022 triamcinolone acetonide (KENALOG) 0.1 % ointment Indications: Flexural atopic dermatitis Apply to affected area twice daily as needed. To be used on arms only, do not use for more than 14 consecutive days 454 g 5 04/07/2022 Active Comment on above: Apply to affected ar ea twice daily as needed. To be used on arms only, do not use for more than 14 consecutive days valACYclovir (1 source) Herpesvirus Nucleoside Analog DNA Polymerase Inhibitor, Herpes Simplex Virus Nucleoside Analog DNA Polymerase Inhibitor, Herpes Zoster Virus Nucleoside Analog DNA Polymerase Inhibitor valacyclovir HCl (VALTREX ORAL) Take by mouth as needed. 0 Active Comment on above: Take by mouth as nee ded. Problems Problem Classification Problem Date Documented Date Episodic/Chronic Allergic reactions (2 sources) Flexural atopic dermatitis; Translations: [Other atopic dermatitis] Onset: 04-07-2022 Chronic Other complications of (12 sources) Rubella non-immune; Translations: [Supervision of other high risk pregnancies, unspecified trimester] 09-17-2022 Episodic Comment on above: MMR pp Other complications of (8 sources) Supervision of other high risk pregnancies, unspecified trimester; Translations: [Other specified complications of , antepartum condition or complication] Onset: 03-07-2025 07-20-2022 Episodic Other and delivery including normal (20 sources) Normal ; Translations: [Encounter for supervision of normal , unspecified, unspecified trimester] Onset: 09-27-2024 Episodic Comment on above: PRR , MILENA 5, PC Michaela Epps, Raciel [id number], MILENA 2 girl PC [place], Spouse Raciel declined NIPT & Pozo ier testing Neg GBS. nl anatomy, declined NIPT & Carrier testing, ntd screen. declined NIPT & Pozo ier testing. nl anatomy. MMR pp PRR , MILENA 5,girl PC Michaela Epps, Raciel Other upper respiratory disease (1 source) Nasal congestion; Translations: [Nasal congestion] Onset: 12-15-2024 Episodic Other upper respiratory infections (1 source) Chronic sinusitis, unspecified; Translations: [Chronic sinusitis, unspecified] Onset: 12-15-2024 Chronic Previous (12 sources) Vaginal delivery following previous section; Translations: [Maternal care for unspecified type scar from previous delivery] Onset: 03-07-2025 09-17-2022 Episodic Comment on above: SM 42 girl Will ow Residual codes; unclassified (13 sources) History of uterine scar from previous surgery; Translations: [Other postprocedural status] Episodic Residual codes; unclassified (1 source) 35 weeks gestation of ; Translations: [35 weeks gestation of ] Onset: 03-07-2025 Episodic Residual codes; unclassified (1 source) 33 weeks gestation of ; Translations: [33 weeks gestation of ] Onset: 02-21-2025 Episodic Residual codes; unclassified (1 source) 30 weeks gestation of ; Translations: [30 weeks gestation of ] Onset: 02-05-2025 Episodic Short gestation; low weight; and growth retardation (10 sources) Imtzm-pdh-ptahl with signs of malnutrition; Translations: [ small for gestational age, unspecified weight] Onset: 03-07-2025 02-21-2025 Episodic Comment on above: 35% on US 03/11 Unclassified (1 source) Other underimmunization status; Translations: [Other underimmunization status] Onset: 03-07-2025 Viral infection (2 sources) Herpesviral vesicular dermatitis; Translations: [Herpesviral vesicular dermatitis] Onset: 10-10-2024 Episodic Results Test Name Value Interpretation Reference Range Facility Laboratory - Chemistry and C hemistry - challengeOrdered By: Mounika Treviño on 03-07-2025 Glucose Ql (U) Negative [facility] Laboratory - UrinalysisOrder ed By: Mounika Treviño on 03-07-2025 Protein Ql (U) Negative [facility] Program Management Manager Office Visit Reporton 03-07-2025 Program Management Manager Office Visit Report [facility]'s [address], [address] [place] [address] OFFICE VISIT Date of Service: 03/07/25 MR#: [id number] Acct: [id number] Name: MAREK KEYES Rep #: [id number] : 1995 Provider: PARVIZ Fitzgerald ams Age/Sex: 29/F [place] [facility] [place]: S[place] Intake Vital Signs 01/10/25 15:34 02/21/25 09:53 03/07/25 09:22 Height 5 ft 1 in 5 ft 1 in 5 ft 1 in Weight: 133 lb 2 oz BMI 25.1 BP 104/64 Intake Visit Reasons: 35wk ob Chief Complaint: 35wk OB Port Cdl A Driver Required: No Is patient in pain?: No Allergies No Known Allergies Allergy (Verified 03/07/25 09:19) Medications ???Medication ???Instructions ???Recorded ???Confirmed ???Type multivit-min no.71-iron fum 28 cap PO 08/24/24 03/07/25 History mg-folate no.1 1 mg-dha 300 mg capsule (PNV-Westpoint) Last Menstrual Period: 07/04/24 : No PFSH PFSH Medical History Vaginal after Surgical History Hx of section Social History adopted: No household members: spouse and children housing: house number of children: 2 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: No pets and animals: No history of recent travel: No (December) sexually active: Yes Smoking Status: Never smoker second hand exposure: No alcohol intake: current alcohol intake frequency: holidays/special occasions only details: social occasions- Not while substance use type: does not use diet: lactose free well-balanced diet: daily or most days caffeine: Yes Type: coffee Number of servings: 1 eating out: 1-3 times/week during the past year weight has: remained stable what type of physical activity do you participate in: walking and other details: pilates frequency: 3-4 times per week duration: 45-60 minutes/day dustin/bahai: Moravian seatbelt use: always do you feel safe at home: Yes additional social history: Spouse - Raciel History 3 Elective abortions Hx Para 2 Spontaneous abortions Hx # Term Pregnancies Ectopic pregnancies Hx # Pregnancies Multiple births # of living children 2 Past Pregnancies Del. Date Name GA/Weeks Outcome Route Bth Weight Infant Gen Labor Lgth Anesthesia Del Locatn Provider FOB Unknown 06/16/20 [place] 40 live - full term 7# 15 oz Male 8 hours gen jeet Schrader 09/17/22 [place] 39 live - full term 6# 11oz Female 5-6 hrs none [facility] Delivery Date: Last Updated by: Hannah Strickland Emergency csection due to decels during pushing Delivery Date: 09/17/22 Last Updated by: Ami Lawrence SM HPI 35wk ob Details: MAREK KEYES is a 29 year old who presents for routine OB visit. OB Visit MILENA Calculator Estimated Delivery Date Method Current WG Current Estimate 04/10/25 LMP (Certain) 35w 1d Other Estimates 04/09/25 Ultrasound #1 35w 2d Expected Delivery Route/Plan tolac patient counseled regarding risks/benefits of trial of labor versus repeat . ACOG/uptodate education given to patient. 93 % likelihood of success per calculator TOLAC consent form signed: [] Labor Preferences- CB/BF classes: no labor support person: Raciel labor intervention preferences: [] pain management options preferred: limited; short labor cut cord/dad catch: yes : yes PP control planned: discussed discussed possible routes of delivery and associated risks: [] special requests: [] Specific Issue/Plans Covid status: [] Flu vaccine: [] Tdap vaccine: declined Rhogam: na LARC form signed: yes movement and labor precautions reviewed Problem list reviewed and updated with the most current plan of care details and appropriate orders placed. Relevant counseling for the gestational age provided. Continue routine care and follow up unless otherwise noted in visit notes/problem list details Initial Weight: 116 lb Date -???-???-???-???-???-?? ?-???-???-???-???-???-? ??- EGA Weight BP Urine Prot -???-???-???-???-???-?? ?-???-???-???-???-???-? ??- Glucose FHR FuHt Pres Dilation -???-???-???-???-???-?? ?-???-???-???-???-???-? ??- Effaced St Visit Note 09/14/24 -???-???-???-???-???-?? ?-???-???-???-???-???-? ??- 10w 2d 116 lb (+0 oz) 125/72 -???-???-???-???-???-?? ?-???-???-???-???-???-? ??- 159 -???-???-???-???-???-?? ?-???-???-???-???-???-? ??- KW- CRL cons with dates. declines NIPT. 10/12/24 -???-???-???-???-???-?? ?-???-???-???-???-???-? ??- 14w 2d 117 lb 4 oz (+1 lb 4 oz) (more content not included)... Normal [facility] Laboratory - Chemistry and C hemistry - challengeOrdered By: Chichi Hu on 02-21-2025 Glucose Ql (U) Negative [facility] Laboratory - UrinalysisOrder ed By: Chichi Hu on 02-21-2025 Protein Ql (U) Negative [facility] Program Management Manager Office Visit Reporton 02-21-2025 Program Management Manager Office Visit Report [facility]'s [address], [address] [place] [id number] OFFICE VISIT Date of Service: 02/21/25 MR#: [id number] Acct: [id number] Name: MAREK KEYES Ruby Rep #: [id number] : 1995 Provider: Dr. Chichi Sarmiento DO Age/Sex: 29/F Location[place] [facility] [place] Status: Signed Intake Vital Signs 01/10/25 15:34 02/05/25 09:33 02/21/25 09:51 02/21/25 09:53 Height 5 ft 1 in 5 ft 1 in 5 ft 1 in 5 ft 1 in Weight: 131 lb 9 oz BMI 24.8 BP 121/75 H Intake Visit Reasons: 33wk ob Port Cdl A Driver Required: No Is patient in pain?: No Allergies No Known Allergies Allergy (Verified 02/21/25 09:50) Medications ???Medication ???Instructions ???Recorded ???Confirmed ???Type multivit-min no.71-iron fum 28 cap PO 08/24/24 02/21/25 History mg-folate no.1 1 mg-dha 300 mg capsule (PNV-Westpoint) Last Menstrual Period: 07/04/24 Zika: Zika virus screening: Negative : No PFSH PFSH Medical History Vaginal after Surgical History Hx of section Social History adopted: No household members: spouse and children housing: house number of children: 2 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: No pets and animals: No history of recent travel: No (December) sexually active: Yes Smoking Status: Never smoker second hand exposure: No alcohol intake: current alcohol intake frequency: holidays/special occasions only details: social occasions- Not while substance use type: does not use diet: lactose free well-balanced diet: daily or most days caffeine: Yes Type: coffee Number of servings: 1 eating out: 1-3 times/week during the past year weight has: remained stable what type of physical activity do you participate in: walking and other details: pilates frequency: 3-4 times per week duration: 45-60 minutes/day dustin/bahai: Moravian seatbelt use: always do you feel safe at home: Yes additional social history: Spouse - Raciel History 3 Elective abortions Hx Para 2 Spontaneous abortions Hx # Term Pregnancies Ectopic pregnancies Hx # Pregnancies Multiple births # of living children 2 Past Pregnancies Del. Date Name GA/Weeks Outcome Route Bth Weight Infant Gen Labor Lgth Anesthesia Del Locatn Provider FOB Unknown 06/16/20 [place] 40 live - full term 7# 15 oz Male 8 hours gen jeet Schrader 09/17/22 [place] 39 live - full term 6# 11oz Female 5-6 hrs none [facility] Delivery Date: Last Updated by: Hannah Strickland Emergency csection due to decels during pushing Delivery Date: 09/17/22 Last Updated by: Ami Lawrence SM HPI 33wk ob Details: MAREK KEYES is a 29 year old who presents for routine OB visit. OB Visit MILENA Calculator Estimated Delivery Date Method Current WG Current Estimate 04/10/25 LMP (Certain) 33w 1d Other Estimates 04/09/25 Ultrasound #1 33w 2d Expected Delivery Route/Plan tolac patient counseled regarding risks/benefits of trial of labor versus repeat . ACOG/uptodate education given to patient. 93 % likelihood of success per calculator TOLAC consent form signed: [] Labor Preferences- CB/BF classes: no labor support person: Raciel labor intervention preferences: [] pain management options preferred: limited; short labor cut cord/dad catch: yes : yes PP control planned: discussed discussed possible routes of delivery and associated risks: [] special requests: [] Specific Issue/Plans Covid status: [] Flu vaccine: [] Tdap vaccine: declined Rhogam: na LARC form signed: yes movement and labor precautions reviewed Problem list reviewed and updated with the most current plan of care details and appropriate orders placed. Relevant counseling for the gestational age provided. Continue routine care and follow up unless otherwise noted in visit notes/problem list details Initial Weight: 116 lb Date -???-???-???-???-???-?? ?-???-???-???-???-???-? ??- EGA Weight BP Urine Prot -???-???-???-???-???-?? ?-???-???-???-???-???-? ??- Glucose FHR FuHt Pres Dilation -???-???-???-???-???-?? ?-???-???-???-???-???-? ??- Effaced St Visit Note 09/14/24 -???-???-???-???-???-?? ?-???-???-???-???-???-? ??- 10w 2d 116 lb (+0 oz) 125/72 -???-???-???-???-???-?? ?-???-???-???-???-???-? ??- 159 -???-???-???-???-???-?? ?-???-???-???-???-???-? ??- KW- CRL cons with dates. declines NIPT. 10/12/24 -???-???-???-???-??? (more content not included)... Normal [facility] Laboratory - Chemistry and C hemistry - challengeOrdered By: Tiki Dillon on 02-05-2025 Glucose Ql (U) Negative [facility] Laboratory - UrinalysisOrder ed By: Tiki Dillon on 02-05-2025 Protein Ql (U) Negative [facility] Program Management Manager Office Visit Reporton 02-05-2025 Program Management Manager Office Visit Report [facility] [address], [address] [place] [address] OFFICE VISIT Date of Service: 02/05/25 MR#: [id number] Acct: [id number] Name: MAREK KEYES Rep #: [id number] : 1995 Provider: Dr. Tiki stewart MD Age/Sex: 29/F [place] [facility] [place]: Signed Intake Vital Signs 12/07/24 10:49 01/23/25 09:59 02/05/25 09:31 02/05/25 09:33 Height 5 ft 1 in 5 ft 1 in 5 ft 1 in 5 ft 1 in Weight: 127 lb 2 oz 128 lb 2 oz BMI 24.0 24.2 BP 100/62 115/71 Intake Visit Reasons: 32wk ob Port Cdl A Driver Required: No Is patient in pain?: No Allergies No Known Allergies Allergy (Verified 02/05/25 09:30) Medications ???Medication ???Instructions ???Recorded ???Confirmed ???Type multivit-min no.71-iron fum 28 cap PO 08/24/24 02/05/25 History mg-folate no.1 1 mg-dha 300 mg capsule (PNV-Westpoint) Last Menstrual Period: 07/04/24 Zika: Zika virus screening: Negative : No PFSH PFSH Medical History Vaginal after Surgical History Hx of section Social History adopted: No household members: spouse and children housing: house number of children: 2 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: No pets and animals: No history of recent travel: No (December) sexually active: Yes Smoking Status: Never smoker second hand exposure: No alcohol intake: current alcohol intake frequency: holidays/special occasions only details: social occasions- Not while substance use type: does not use diet: lactose free well-balanced diet: daily or most days caffeine: Yes Type: coffee Number of servings: 1 eating out: 1-3 times/week during the past year weight has: remained stable what type of physical activity do you participate in: walking and other details: pilates frequency: 3-4 times per week duration: 45-60 minutes/day dustin/bahai: Moravian seatbelt use: always do you feel safe at home: Yes additional social history: Spouse - Raciel History 3 Elective abortions Hx Para 2 Spontaneous abortions Hx # Term Pregnancies Ectopic pregnancies Hx # Pregnancies Multiple births # of living children 2 Past Pregnancies Del. Date Name GA/Weeks Outcome Route Bth Weight Gen Labor Lgth Anesthesia Del Locatn Provider FOB Unknown 06/16/20 [place] 40 live - full term 7# 15 oz Male 8 hours gen jerical Maria Teresa Schrader 09/17/22 [place] 39 live - full term 6# 11oz Female 5-6 hrs none [facility] bartolome Raciel Delivery Date: Last Updated by: Hannah Strickland Emergency csection due to decels during pushing Delivery Date: 09/17/22 Last Updated by: Ami Lawrence SM HPI 32wk ob Details: MAREK KEYES is a 29 year old who presents for routine OB visit. OB Visit MILENA Calculator Estimated Delivery Date Method Current WG Current Estimate 04/10/25 LMP (Certain) 30w 6d Other Estimates 04/09/25 Ultrasound #1 31w 0d Expected Delivery Route/Plan tolac patient counseled regarding risks/benefits of trial of labor versus repeat . ACOG/uptodate education given to patient. 93 % likelihood of success per calculator TOLAC consent form signed: [] Labor Preferences- CB/BF classes: no labor support person: Raciel labor intervention preferences: [] pain management options preferred: limited; short labor cut cord/dad catch: yes : yes PP control planned: discussed discussed possible routes of delivery and associated risks: [] special requests: [] Specific Issue/Plans Covid status: [] Flu vaccine: [] Tdap vaccine: declined Rhogam: na LARC form signed: yes movement and labor precautions reviewed Problem list reviewed and updated with the most current plan of care details and appropriate orders placed. Relevant counseling for the gestational age provided. Continue routine care and follow up unless otherwise noted in visit notes/problem list details Initial Weight: 116 lb Date -???-???-???-???-???-?? ?-???-???-???-???-???-? ??- EGA Weight BP Urine Prot -???-???-???-???-???-?? ?-???-???-???-???-???-? ??- Glucose FHR FuHt Pres Dilation -???-???-???-???-???-?? ?-???-???-???-???-???-? ??- Effaced St Visit Note 09/14/24 -???-???-???-???-???-?? ?-???-???-???-???-???-? ??- 10w 2d 116 lb (+0 oz) 125/72 -???-???-???-???-???-?? ?-???-???-???-???-???-? ??- 159 -???-???-???-???-???-?? ?-???-???-???-???-???-? ??- KW- CRL cons with dates. declines NIPT. 10/12/24 -???-? (more content not included)... Normal [facility] Program Management Manager Office Visit Reporton 01-23-2025 Program Management Manager Office Visit Report [facility] [address], [address] [place] [address] OFFICE VISIT Date of Service: 01/23/25 MR#: [id number] Acct: [id number] Name: MAREK KEYES Rep #: [id number] : 1995 Provider: GEORGE nicholas Age/Sex: 29/F [place] [facility] [place]: Signed Intake Vital Signs 12/07/24 10:49 01/10/25 15:34 01/23/25 09:59 Height 5 ft 1 in 5 ft 1 in 5 ft 1 in Weight: 127 lb 2 oz BMI 24.0 BP 100/62 Intake Visit Reasons: 30wk ob Chief Complaint: 30 Week OB Port Cdl A Driver Required: No Is patient in pain?: No Allergies No Known Allergies Allergy (Verified 01/23/25 09:59) Medications ???Medication ???Instructions ???Recorded ???Confirmed ???Type multivit-min no.71-iron fum 28 cap PO 08/24/24 01/23/25 History mg-folate no.1 1 mg-dha 300 mg capsule (PNV-[facility]) Last Menstrual Period: 07/04/24 Zika: Zika virus screening: Negative : No PFSH PFSH Medical History Vaginal after Surgical History Hx of section Social History adopted: No household members: spouse and children housing: house number of children: 2 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: No pets and animals: No history of recent travel: No (December) sexually active: Yes Smoking Status: Never smoker second hand exposure: No alcohol intake: current alcohol intake frequency: holidays/special occasions only details: social occasions- Not while substance use type: does not use diet: lactose free well-balanced diet: daily or most days caffeine: Yes Type: coffee Number of servings: 1 eating out: 1-3 times/week during the past year weight has: remained stable what type of physical activity do you participate in: walking and other details: pilates frequency: 3-4 times per week duration: 45-60 minutes/day dustin/bahai: Moravian seatbelt use: always do you feel safe at home: Yes additional social history: Spouse - Raciel History 3 Elective abortions Hx Para 2 Spontaneous abortions Hx # Term Pregnancies Ectopic pregnancies Hx # Pregnancies Multiple births # of living children 2 Past Pregnancies Del. Date Name GA/Weeks Outcome Route Bth Weight Gen Labor Lgth Anesthesia Del Locatn Provider FOB Unknown 06/16/20 Mich 40 live - full term 7# 15 oz Male 8 hours gen eral Maria Teresa Noel Raciel 09/17/22 [place] 39 live - full term 6# 11oz Female 5-6 hrs none [facility] Mar bartolome Raciel Delivery Date: Last Updated by: Hannah Strickland Emergency csection due to decels during pushing Delivery Date: 09/17/22 Last Updated by: Ami Lawrence SM HPI 30wk ob Details: MAREK KEYES is a 29 year old who presents for routine OB visit. OB Visit MILENA Calculator Estimated Delivery Date Method Current WG Current Estimate 04/10/25 LMP (Certain) 29w 0d Other Estimates 04/09/25 Ultrasound #1 29w 1d Expected Delivery Route/Plan patient counseled regarding risks/benefits of trial of labor versus repeat . ACOG/uptodate education given to patient. 93 % likelihood of success per calculator TOLAC consent form signed: [] Labor Preferences- CB/BF classes: no labor support person: Raciel labor intervention preferences: [] pain management options preferred: limited; short labor cut cord/dad catch: yes : yes PP control planned: discussed discussed possible routes of delivery and associated risks: [] special requests: [] Specific Issue/Plans Covid status: [] Flu vaccine: [] Tdap vaccine: [] Rhogam: [] LARC form signed: yes Problem list reviewed and updated with the most current plan of care details and appropriate orders placed. Relevant counseling for the gestational age provided. Continue routine care and follow up unless otherwise noted in visit notes/problem list details Initial Weight: 116 lb Date -???-???-???-???-???-?? ?-???-???-???-???-???-? ??- EGA Weight BP Urine Prot -???-???-???-???-???-?? ?-???-???-???-???-???-? ??- Glucose FHR FuHt Pres Dilation -???-???-???-???-???-?? ?-???-???-???-???-???-? ??- Effaced St Visit Note 09/14/24 -???-???-???-???-???-?? ?-???-???-???-???-???-? ??- 10w 2d 116 lb (+0 oz) 125/72 -???-???-???-???-???-?? ?-???-???-???-???-???-? ??- 159 -???-???-???-???-???-?? ?-???-???-???-???-???-? ??- KW- CRL cons with dates. declines NIPT. 10/12/24 -???-???-???-???-???-?? ?-???-???-???-???-???-? ??- 14w 2d 117 lb 4 oz (+1 lb 4 oz) 1 (more content not included)... Normal [facility] Absolute lymphocyte countOrd ered By: Chichi Hu on 01-10-2025 Lymphocytes Auto (Unsp spec) [#/Vol] 2.16 10*3/uL 0.83-4.51 [facility] Absolute neutrophil countOrd ered By: Chichi Hu on 01-10-2025 Neutrophils (Bld) [#/Vol] 9.2 10*3/uL High 2.0-7.7 [facility] Automated lymphocyte count a s percentage of total leukocytesOrdered By: Chichi Hu on 01-10-2025 Lymphocytes/100 WBC Auto (Unsp spec) 17.9 % Low 19-41 [facility] Basophil percentageOrdered B y: Chichi Hu on 01-10-2025 Basophils/100 WBC (Bld) 0.2 % 0-1 [facility] CBC W/Diff, Automatedon 12-17 Absolute Lymph 2.16 X10 3/uL Normal 0.83-4.51 [facility] Comment on above: Performed By: #### L 509.8002, L3890.6006, L100.0100, L501.0250 ####[facility] [address] [place], [address] Absolute Neut 9.2 X10 3/uL High 2.0-7.7 [facility] Comment on above: Performed By: #### L 509.8002, L3890.6006, L100.0100, L501.0250 ####[facility] [address] [place], [address] Basophils/100 WBC (Bld) 0.2 % Normal 0-1 [facility] Comment on above: Performed By: #### L 509.8002, L3890.6006, L100.0100, L501.0250 ####[facility] [address] [place], [address] Eosinophils/100 WBC (Bld) 0.8 % Normal 0-5 [facility] Comment on above: Performed By: #### L 509.8002, L3890.6006, L100.0100, L501.0250 ####[facility] [address] [place], [address] Erythrocyte distribution width (RBC) [Ratio] 12.4 % Normal 11.6-14.6 [facility] Comment on above: Performed By: #### L 509.8002, L3890.6006, L100.0100, L501.0250 ####[facility] [address] [place], [address] Hematocrit (Bld) [Volume fraction] 33.6 % Low 37-47 [facility] Comment on above: Performed By: #### L 509.8002, L3890.6006, L100.0100, L501.0250 ####[facility] [address] [place], [address] Hemoglobin (Bld) [Mass/Vol] 11.2 g/dL Low 12.0-15.0 [facility] Comment on above: Performed By: #### L 509.8002, L3890.6006, L100.0100, L501.0250 ####[facility] [address] [place], [address] IG% 0.700 Normal 0.0-0.9 [facility] Comment on above: Result Comment: IG% - Immature Granulocytes (promyelocytes, myelocytes and metamyelocytes) > 1% indicates that a LEFT SHIFT is Present. Performed By: #### L 509.8002, L3890.6006, L100.0100, L501.0250 ####[facility] [address] [place], [address] Lymphocytes/100 WBC (Bld) 17.9 % Low 19-41 [facility] Comment on above: Performed By: #### L 509.8002, L3890.6006, L100.0100, L501.0250 ####[facility] [address] [place], [address] MCH (RBC) [Entitic mass] 31.1 pg Normal 27.0-32.0 [facility] Comment on above: Performed By: #### L 509.8002, L3890.6006, L100.0100, L501.0250 ####[facility] [address] [place], [address] MCHC (RBC) [Mass/Vol] 33.3 g/dL Normal 32-36 [facility] Comment on above: Performed By: #### L 509.8002, L3890.6006, L100.0100, L501.0250 ####[facility] [address] [place], [address] MCV (RBC) [Entitic vol] 93.3 fL Normal 81-[address] [facility] Comment on above: Performed By: #### L 509.8002, L3890.6006, L100.0100, L501.0250 ####[facility] [address] [place], [address] Monocytes/100 WBC (Bld) 4.3 % Normal 0-[address] [facility] Comment on above: Performed By: #### L 509.8002, L3890.6006, L100.0100, L501.0250 ####[facility] [address] [place], [address] Neutrophils/100 WBC (Bld) 76.1 % High 47-70 [facility] Comment on above: Performed By: #### L 509.8002, L3890.6006, L100.0100, L501.0250 ####[facility] [address] [place], [address] Nucleated RBC (Bld) [#/Vol] 0 10*3/uL Normal 0-5 [facility] Comment on above: Performed By: #### L 509.8002, L3890.6006, L100.0100, L501.0250 ####[facility] [address] [place], [address] Platelet mean volume (Bld) [Entitic vol] 9.4 fL Normal 6.2-12.0 [facility] Comment on above: Performed By: #### L 509.8002, L3890.6006, L100.0100, L501.0250 ####[facility] [address] [place], [address] Platelets (Bld) [#/Vol] 223 10*3/uL Normal 150-450 [facility] Comment on above: Performed By: #### L 509.8002, L3890.6006, L100.0100, L501.0250 ####[facility] [address] [place], [address] RBC (Bld) [#/Vol] 3.60 10*6/uL Low 4.2-5.4 [facility] Comment on above: Performed By: #### L 509.8002, L3890.6006, L100.0100, L501.0250 ####[facility] [address] [place], [address] RDW SD 42.1 fl Normal 35.1-43.9 [facility] Comment on above: Performed By: #### L 509.8002, L3890.6006, L100.0100, L501.0250 ####[facility] [address] [place], [address] WBC (Bld) [#/Vol] 12.1 10*3/uL High 4.4-11.0 [facility] Comment on above: Performed By: #### L 509.8002, L3890.6006, L100.0100, L501.0250 ####[facility] [address] [place], [address] Eosinophil percentageOrdered By: Chichi Hu on 01-10-2025 Eosinophils/100 WBC (Bld) 0.8 % 0-5 [facility] Erythrocyte distribution wid th ratioOrdered By: Chichi Hu on 01-10-2025 Erythrocyte distribution width (RBC) [Ratio] 12.4 % 11.6-14.6 [facility] Erythrocyte distribution wid th standard deviationOrdered By: Chichi Hu on 01-10-2025 Erythrocyte distribution width (RBC) [Ratio] 42.1 fl 35.1-43.9 [facility] Glucose Challenge Gest 1H 50 jordan 01-10-2025 GLU GEST 50g 1H 101 mg/dL Normal 70-140 [facility] Comment on above: Performed By: #### L 509.8002, L3890.6006, L100.0100, L501.0250 ####[facility] [address] [place], [place], [address] Glucose measurement at 2 ej rs post-dose gestational glucose tolerance testOrdered By: Chichi Hu on 01-10-2025 Glucose [Mass/Vol] 101 mg/dL 70-140 [facility] HIVon 01-10-2025 HIV Non-Reactive Normal Nonreactive [facility] Comment on above: Result Comment: Non- Reactive Reactive Repeatedly reactive samples must be confirmed according to CDC recommended confirmatory algorithms. The subresults for either HIVAG or AHIV can be used as an aid in the selection of the confirmation algorithm for reactive samples. Send out specimens with Reactive results to [facility] for confirmation. Order the HIV antibody detection and differentiation: #[id number] Performed By: #### L 509.8002, L3890.6006, L100.0100, L501.0250 ####[facility] [address] [place], [place], [address] Hematocrit Auto (Bld) [Volum e fraction]Ordered By: Chichi Hu on 01-10-2025 Hematocrit (Bld) [Volume fraction] 33.6 % Low 37-47 [facility] Hemoglobin measurementOrdere d By: Chichi Hu on 01-10-2025 Hemoglobin (Bld) [Mass/Vol] 11.2 g/dL Low 12.0-15.0 [facility] Immature granulocytes/100 WB C Auto (Bld)Ordered By: Chichi Hu on 01-10-2025 Immature granulocytes/100 WBC (Bld) 0.700 % 0.0-0.9 [facility] Comment on above: IG% - Immature Granu locytes (promyelocytes, myelocytes and metamyelocytes) > 1% indicates that a LEFT SHIFT is Present. Laboratory - Chemistry and C hemistry - challengeOrdered By: Smiley Conte on 01-10-2025 Glucose Ql (U) Negative [facility] Laboratory - UrinalysisOrder ed By: Smiley Conte on 01-10-2025 Protein Ql (U) Negative [facility] MCV (mean corpuscular volume ) determinationOrdered By: Chichi Hu on 01-10-2025 MCV (RBC) [Entitic vol] 93.3 fL 81-99 [facility] Mean corpuscular hemoglobin (MCH) determinationOrdered By: Chichi Hu on 01-10-2025 MCH (RBC) [Entitic mass] 31.1 pg 27.0-32.0 [facility] Mean corpuscular hemoglobin concentration (MCHC) determinationOrdered By: Chichi Hu on 01-10-2025 MCHC (RBC) [Mass/Vol] 33.3 g/dL 32-36 [facility] Mean platelet volume determi nationOrdered By: Chichi Hu on 01-10-2025 Platelet mean volume (Bld) [Entitic vol] 9.4 fL 6.2-12.0 [facility] Monocyte percentageOrdered B y: Chichi Hu on 01-10-2025 Monocytes/100 WBC (Bld) 4.3 % 0-10 [facility] Neutrophil percentageOrdered By: Chichi Hu on 01-10-2025 Neutrophils/100 WBC (Bld) 76.1 % High 47-70 [facility] No Panel InformationOrdered By: Chichi Hu on 01-10-2025 HIV (1&2) Antibody Non-Reactive Nonreactive [facility] Comment on above: Non-ReactiveReactive Repeatedly reactive samples must be confirmed according to CDC recommended confirmatory algorithms. The subresults for either HIVAG or AHIV can be used as an aid in the selection of the confirmation algorithm for reactive samples.Send out specimens with Reactive results to [facility] for confirmation.Order the HIV antibody detection and differentiation: #[id number] Nucleated red blood cell per centageOrdered By: Chichi Hu on 01-10-2025 Nucleated RBC/100 WBC (Bld) [Ratio] 0 % 0-5 [facility] Program Management Manager Office Visit Reporton 01-10-2025 Program Management Manager Office Visit Report [facility] [address], [address] [place] [address] OFFICE VISIT Date of Service: 01/10/25 MR#: [id number] Acct: [id number] Name: MAREK KEYES Rep #: [id number] : 1995 Provider: GEORGE nicholas Age/Sex: 29/F [place] [facility] [place]: Signed Intake Vital Signs 10/12/24 10:15 12/07/24 10:49 01/10/25 15:34 Height 5 ft 1 in 5 ft 1 in 5 ft 1 in Weight: 127 lb 2 oz BMI 24.0 BP 106/68 Intake Visit Reasons: 28wk ob/glucose *timothy from 12/31 Chief Complaint: 28 Week OB/Glucose Port Cdl A Driver Required: No Is patient in pain?: No Allergies No Known Allergies Allergy (Verified 01/10/25 15:36) Medications ???Medication ???Instructions ???Recorded ???Confirmed ???Type multivit-min no.71-iron fum 28 cap PO 08/24/24 01/10/25 History mg-folate no.1 1 mg-dha 300 mg capsule (PNV-[facility]) Last Menstrual Period: 07/04/24 Zika: Zika virus screening: Negative : Yes PFSH PFSH Medical History Vaginal after Surgical History Hx of section Social History adopted: No household members: spouse and children housing: house number of children: 2 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: No pets and animals: No history of recent travel: No (December) sexually active: Yes Smoking Status: Never smoker second hand exposure: No alcohol intake: current alcohol intake frequency: holidays/special occasions only details: social occasions- Not while substance use type: does not use diet: lactose free well-balanced diet: daily or most days caffeine: Yes Type: coffee Number of servings: 1 eating out: 1-3 times/week during the past year weight has: remained stable what type of physical activity do you participate in: walking and other details: pilates frequency: 3-4 times per week duration: 45-60 minutes/day dustin/bahai: Moravian seatbelt use: always do you feel safe at home: Yes additional social history: Spouse - Raciel History 3 Elective abortions Hx Para 2 Spontaneous abortions Hx # Term Pregnancies Ectopic pregnancies Hx # Pregnancies Multiple births # of living children 2 Past Pregnancies Del. Date Name GA/Weeks Outcome Route Bth Weight Infant Gen Labor Lgth Anesthesia Del Locatn Provider FOB Unknown 06/16/20 Mich 40 live - full term 7# 15 oz Male 8 hours gen jerical Maria Teresa Schrader 09/17/22 [place] 39 live - full term 6# 11oz Female 5-6 hrs none [facility] Leeanne Sanchezah Delivery Date: Last Updated by: Hannah Strickland Emergency csection due to decels during pushing Delivery Date: 09/17/22 Last Updated by: Ami Lawrence SM HPI 28wk ob/glucose *timothy from 12/31 Details: MAREK KEYES is a 29 year old who presents for routine OB visit. OB Visit MILENA Calculator Estimated Delivery Date Method Current WG Current Estimate 04/10/25 LMP (Certain) 27w 1d Other Estimates 04/09/25 Ultrasound #1 27w 2d Expected Delivery Route/Plan patient counseled regarding risks/benefits of trial of labor versus repeat . ACOG/uptodate education given to patient. 93 % likelihood of success per calculator TOLAC consent form signed: [] Labor Preferences- CB/BF classes: no labor support person: Raciel labor intervention preferences: [] pain management options preferred: limited; short labor cut cord/dad catch: yes : yes PP control planned: discussed discussed possible routes of delivery and associated risks: [] special requests: [] Specific Issue/Plans Covid status: [] Flu vaccine: [] Tdap vaccine: [] Rhogam: [] LARC form signed: yes Problem list reviewed and updated with the most current plan of care details and appropriate orders placed. Relevant counseling for the gestational age provided. Continue routine care and follow up unless otherwise noted in visit notes/problem list details Initial Weight: 116 lb Date -???-???-???-???-???-?? ?-???-???-???-???-???-? ??- EGA Weight BP Urine Prot -???-???-???-???-???-?? ?-???-???-???-???-???-? ??- Glucose FHR FuHt Pres Dilation -???-???-???-???-???-?? ?-???-???-???-???-???-? ??- Effaced St Visit Note 09/14/24 -???-???-???-???-???-?? ?-???-???-???-???-???-? ??- 10w 2d 116 lb (+0 oz) 125/72 -???-???-???-???-???-?? ?-???-???-???-???-???-? ??- 159 -???-???-???-???-???-?? ?-???-???-???-???-???-? ??- KW- CRL cons with dates. declines NIPT. 10/12/24 -???-???-???-???-???-?? ?-??? (more content not included)... Normal [facility] Platelet countOrdered By: Tom Hu on 01-10-2025 Platelets (Bld) [#/Vol] 223 10*3/uL 150-450 [facility] RBC Auto (Bld) [#/Vol]Ordere d By: Chichi Hu on 01-10-2025 RBC (Bld) [#/Vol] 3.60 10*6/uL Low 4.2-5.4 [facility] Syphilis Antibodieson 2024 Syphilis Abs Non-Reactive Normal Nonreactive [facility] Comment on above: Performed By: #### L 509.8002, L3890.6006, L100.0100, L501.0250 ####[facility] [address] [place], [address] White blood cell (WBC) count Ordered By: Chichi Hu on 01-10-2025 WBC (Bld) [#/Vol] 12.1 10*3/uL High 4.4-11.0 [facility] Laboratory - Chemistry and C hemistry - challengeOrdered By: Chichi Hu on 12-07-2024 Glucose Ql (U) Negative [facility] Laboratory - UrinalysisOrder ed By: Chichi Hu on 12-07-2024 Protein Ql (U) Negative [facility] Program Management Manager Office Visit Reporton 12-07-2024 Program Management Manager Office Visit Report [facility]'[address], [address] [place] [address] OFFICE VISIT Date of Service: 12/07/24 MR#: [id number] Acct: [id number] Name: MAREK KEYES Rep #: [id number] : 1995 Provider: Dr. Chichi Sarmiento DO Age/Sex: 28/F [place] [facility] [place]: Signed Intake Vital Signs 10/12/24 10:15 11/06/24 09:51 12/07/24 10:49 Height 5 ft 1 in 5 ft 1 in 5 ft 1 in Weight: 123 lb BMI 23.2 BP 104/66 Intake Visit Reasons: 22wk ob Port Cdl A Driver Required: No Is patient in pain?: No Allergies No Known Allergies Allergy (Verified 12/07/24 10:53) Medications ???Medication ???Instructions ???Recorded ???Confirmed ???Type multivit-min no.71-iron fum 28 cap PO 08/24/24 12/07/24 History mg-folate no.1 1 mg-dha 300 mg capsule (PNV-[facility]) Last Menstrual Period: 07/04/24 Zika: Zika virus screening: Negative : No PFSH PFSH Medical History Vaginal after Surgical History Hx of section Social History adopted: No household members: spouse and children housing: house number of children: 2 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: No pets and animals: No history of recent travel: No (December) sexually active: Yes Smoking Status: Never smoker second hand exposure: No alcohol intake: current alcohol intake frequency: holidays/special occasions only details: social occasions- Not while substance use type: does not use diet: lactose free well-balanced diet: daily or most days caffeine: Yes Type: coffee Number of servings: 1 eating out: 1-3 times/week during the past year weight has: remained stable what type of physical activity do you participate in: walking and other details: pilates frequency: 3-4 times per week duration: 45-60 minutes/day dustin/bahai: Moravian seatbelt use: always do you feel safe at home: Yes additional social history: Spouse - Raciel History 3 Elective abortions Hx Para 2 Spontaneous abortions Hx # Term Pregnancies Ectopic pregnancies Hx # Pregnancies Multiple births # of living children 2 Past Pregnancies Del. Date Name GA/Weeks Outcome Route Bth Weight Infant Gen Labor Lgth Anesthesia Del Locatn Provider FOB Unknown 06/16/20 Mich 40 live - full term 7# 15 oz Male 8 hours gen jerical Maria Teresa Schrader 09/17/22 [place] 39 live - full term 6# 11oz Female 5-6 hrs none [facility] Leeanne bartolome Schrader Delivery Date: Last Updated by: Hannah Strickland Emergency csection due to decels during pushing Delivery Date: 09/17/22 Last Updated by: Ami Lawrence HPI 22wk ob Details: MAREK KEYES is a 28 year old who presents for routine OB visit. OB Visit MILENA Calculator Estimated Delivery Date Method Current WG Current Estimate 04/10/25 LMP (Certain) 22w 2d Other Estimates 04/09/25 Ultrasound #1 22w 3d Expected Delivery Route/Plan patient counseled regarding risks/benefits of trial of labor versus repeat . ACOG/uptodate education given to patient. 93 % likelihood of success per calculator TOLAC consent form signed: [] Labor Preferences- CB/BF classes: [] labor support person: [] labor intervention preferences: [] pain management options preferred: [] cut cord/dad catch: [] : [] PP control planned: [] discussed possible routes of delivery and associated risks: [] special requests: [] Specific Issue/Plans Covid status: [] Flu vaccine: [] Tdap vaccine: [] Rhogam: [] LARC form signed: [] Problem list reviewed and updated with the most current plan of care details and appropriate orders placed. Relevant counseling for the gestational age provided. Continue routine care and follow up unless otherwise noted in visit notes/problem list details Initial Weight: 116 lb Date -???-???-???-???-???-?? ?-???-???-???-???-???-? ??- EGA Weight BP Urine Prot -???-???-???-???-???-?? ?-???-???-???-???-???-? ??- Glucose FHR FuHt Pres Dilation -???-???-???-???-???-?? ?-???-???-???-???-???-? ??- Effaced St Visit Note 09/14/24 -???-???-???-???-???-?? ?-???-???-???-???-???-? ??- 10w 2d 116 lb (+0 oz) 125/72 -???-???-???-???-???-?? ?-???-???-???-???-???-? ??- 159 -???-???-???-???-???-?? ?-???-???-???-???-???-? ??- KW- CRL cons with dates. declines NIPT. 10/12/24 -???-???-???-???-???-?? ?-???-???-???-???-???-? ??- 14w 2d 117 lb 4 oz (+1 lb 4 oz) 118/80 Negative -???-???-???-???-???-?? ?-???-???-???-???-? (more content not included)... Normal [facility] Program Management Manager Office Visit Reporton 11-06-2024 Program Management Manager Office Visit Report [facility] [address], [address] [place] [address] OFFICE VISIT Date of Service: 11/06/24 MR#: [id number] Acct: [id number] Name: MAREK KEYES Rep #: [id number] : 1995 Provider: Dr. Tiki stewart MD Age/Sex: 28/F [place] [facility] [place]: [place] Intake Vital Signs 09/14/24 10:31 10/12/24 10:15 11/06/24 09:49 11/06/24 09:51 Height 5 ft 1 in 5 ft 1 in 5 ft 1 in 5 ft 1 in Weight: 114 lb 8 oz BMI 21.6 BP 114/80 Intake Visit Reasons: 18wk ob Port Cdl A Driver Required: No Is patient in pain?: No Allergies No Known Allergies Allergy (Verified 11/06/24 09:49) Medications ???Medication ???Instructions ???Recorded ???Confirmed ???Type multivit-min no.71-iron fum 28 cap PO 08/24/24 11/06/24 History mg-folate no.1 1 mg-dha 300 mg capsule (PNV-[facility]) Last Menstrual Period: 07/04/24 Zika: Zika virus screening: Negative : No PFSH PFSH Medical History Vaginal after Surgical History Hx of section Social History adopted: No household members: spouse and children housing: house number of children: 2 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: No pets and animals: No history of recent travel: No (December) sexually active: Yes Smoking Status: Never smoker second hand exposure: No alcohol intake: current alcohol intake frequency: holidays/special occasions only details: social occasions- Not while substance use type: does not use diet: lactose free well-balanced diet: daily or most days caffeine: Yes Type: coffee Number of servings: 1 eating out: 1-3 times/week during the past year weight has: remained stable what type of physical activity do you participate in: walking and other details: pilates frequency: 3-4 times per week duration: 45-60 minutes/day dustin/bahai: Moravian seatbelt use: always do you feel safe at home: Yes additional social history: Spouse - Raciel History 3 Elective abortions Hx Para 2 Spontaneous abortions Hx # Term Pregnancies Ectopic pregnancies Hx # Pregnancies Multiple births # of living children 2 Past Pregnancies Del. Date Name GA/Weeks Outcome Route Bth Weight Infant Gen Labor Lgth Anesthesia Del Locatn Provider FOB Unknown 06/16/20 Mich 40 live - full term 7# 15 oz Male 8 hours gen jerical Maria Teresa Schrader 09/17/22 Taylor 39 live - full term 6# 11oz Female 5-6 hrs none [facility] Leeanne mancuso Raciel Delivery Date: Last Updated by: Hannah Strickland Emergency csection due to decels during pushing Delivery Date: 09/17/22 Last Updated by: Ami Lawrence SM HPI 18wk ob Details: MAREK KEYES is a 28 year old who presents for routine OB visit. OB Visit MILENA Calculator Estimated Delivery Date Method Current WG Current Estimate 04/10/25 LMP (Certain) 17w 6d Other Estimates 04/09/25 Ultrasound #1 18w 0d Expected Delivery Route/Plan patient counseled regarding risks/benefits of trial of labor versus repeat . ACOG/uptodate education given to patient. 93 % likelihood of success per calculator TOLAC consent form signed: [] Labor Preferences- CB/BF classes: [] labor support person: [] labor intervention preferences: [] pain management options preferred: [] cut cord/dad catch: [] : [] PP control planned: [] discussed possible routes of delivery and associated risks: [] special requests: [] Specific Issue/Plans Covid status: [] Flu vaccine: [] Tdap vaccine: [] Rhogam: [] LARC form signed: [] Problem list reviewed and updated with the most current plan of care details and appropriate orders placed. Relevant counseling for the gestational age provided. Continue routine care and follow up unless otherwise noted in visit notes/problem list details Initial Weight: 116 lb Date -???-???-???-???-???-?? ?-???-???-???-???-???-? ??- EGA Weight BP Urine Prot -???-???-???-???-???-?? ?-???-???-???-???-???-? ??- Glucose FHR FuHt Pres Dilation -???-???-???-???-???-?? ?-???-???-???-???-???-? ??- Effaced St Visit Note 09/14/24 -???-???-???-???-???-?? ?-???-???-???-???-???-? ??- 10w 2d 116 lb (+0 oz) 125/72 -???-???-???-???-???-?? ?-???-???-???-???-???-? ??- 159 -???-???-???-???-???-?? ?-???-???-???-???-???-? ??- KW- CRL cons with dates. declines NIPT. 10/12/24 -???-???-???-???-???-?? ?-???-???-???-???-???-? ??- 14w 2d 117 lb 4 oz (+1 lb 4 oz) 118/80 Negative -???-???-???-???-? (more content not included)... Normal [facility] Laboratory - Chemistry and C hemistry - challengeOrdered By: Smiley Conte on 10-12-2024 Glucose Ql (U) Negative [facility] Laboratory - UrinalysisOrder ed By: Smiley Conte on 10-12-2024 Protein Ql (U) Negative [facility] Program Management Manager Office Visit Reporton 10-12-2024 Program Management Manager Office Visit Report [facility] [address], [address] [place] [address] OFFICE VISIT Date of Service: 10/12/24 MR#: [id number] Acct: [id number] Name: MAREK KEYES Rep #: [id number] : 1995 Provider: GEORGE nicholas Age/Sex: 28/F [place] [facility] [place]: Signed Intake Vital Signs 11/04/22 10:14 09/14/24 10:31 10/12/24 10:15 Height 5 ft 1 in 5 ft 1 in 5 ft 1 in Weight: 117 lb 4 oz BMI 22.1 BP 118/80 Intake Visit Reasons: 14 wk OB Chief Complaint: 14 Week OB Port Cdl A Driver Required: No Is patient in pain?: No Allergies No Known Allergies Allergy (Verified 10/12/24 10:18) Medications ???Medication ???Instructions ???Recorded ???Confirmed ???Type multivit-min no.71-iron fum 28 cap PO 08/24/24 10/12/24 History mg-folate no.1 1 mg-dha 300 mg capsule (PNV-[facility]) Last Menstrual Period: 07/04/24 Zika: Zika virus screening: Negative : No PFSH PFSH Medical History Vaginal after Surgical History Hx of section Social History adopted: No household members: spouse and children housing: house number of children: 2 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: No pets and animals: No history of recent travel: No (December) sexually active: Yes Smoking Status: Never smoker second hand exposure: No alcohol intake: current alcohol intake frequency: holidays/special occasions only details: social occasions- Not while substance use type: does not use diet: lactose free well-balanced diet: daily or most days caffeine: Yes Type: coffee Number of servings: 1 eating out: 1-3 times/week during the past year weight has: remained stable what type of physical activity do you participate in: walking and other details: pilates frequency: 3-4 times per week duration: 45-60 minutes/day dustin/bahai: Moravian seatbelt use: always do you feel safe at home: Yes additional social history: Spouse - Raciel History 3 Elective abortions Hx Para 2 Spontaneous abortions Hx # Term Pregnancies Ectopic pregnancies Hx # Pregnancies Multiple births # of living children 2 Past Pregnancies Del. Date Name GA/Weeks Outcome Route Bth Weight Gen Labor Lgth Anesthesia Del Locatn Provider FOB Unknown 06/16/20 Mich 40 live - full term 7# 15 oz Male 8 hours gen jerical Maria Teresa Schrader 09/17/22 Taylor 39 live - full term 6# 11oz Female 5-6 hrs none [facility] Leeanne Schrader Delivery Date: Last Updated by: Hannah Strickland Emergency csection due to decels during pushing Delivery Date: 09/17/22 Last Updated by: Ami Lawrence SM HPI 14 wk OB Details: MAREK KEYES is a 28 year old who presents for routine OB visit. OB Visit MILENA Calculator Estimated Delivery Date Method Current WG Current Estimate 04/10/25 LMP (Certain) 14w 2d Other Estimates 04/09/25 Ultrasound #1 14w 3d Expected Delivery Route/Plan patient counseled regarding risks/benefits of trial of labor versus repeat . ACOG/uptodate education given to patient. 93 % likelihood of success per calculator TOLAC consent form signed: [] Labor Preferences- CB/BF classes: [] labor support person: [] labor intervention preferences: [] pain management options preferred: [] cut cord/dad catch: [] : [] PP control planned: [] discussed possible routes of delivery and associated risks: [] special requests: [] Specific Issue/Plans Covid status: [] Flu vaccine: [] Tdap vaccine: [] Rhogam: [] LARC form signed: [] Problem list reviewed and updated with the most current plan of care details and appropriate orders placed. Relevant counseling for the gestational age provided. Continue routine care and follow up unless otherwise noted in visit notes/problem list details Initial Weight: 116 lb Date -???-???-???-???-???-?? ?-???-???-???-???-???-? ??- EGA Weight BP Urine Prot -???-???-???-???-???-?? ?-???-???-???-???-???-? ??- Glucose FHR FuHt Pres Dilation -???-???-???-???-???-?? ?-???-???-???-???-???-? ??- Effaced St Visit Note 09/14/24 -???-???-???-???-???-?? ?-???-???-???-???-???-? ??- 10w 2d 116 lb (+0 oz) 125/72 -???-???-???-???-???-?? ?-???-???-???-???-???-? ??- 159 -???-???-???-???-???-?? ?-???-???-???-???-???-? ??- KW- CRL cons with dates. declines NIPT. 10/12/24 -???-???-???-???-???-?? ?-???-???-???-???-???-? ??- 14w 2d 117 lb 4 oz (+1 lb 4 oz) 118/80 Negative -???-???-?? (more content not included)... Normal [facility] Chlamydia/GC MAXIMILIANO aptimaon CHLAMY,NUC ACID Negative Normal Negative [facility] Comment on above: Performed By: #### M 100.2200, L3890.6301, L7000.1800, L100.0100, L3890.6102, L3890.6006, L509.8002, BTS, L509.4006 ####[facility] [address] [place], [place], [address] GC BY NUC ACID Negative Normal Negative [facility] Comment on above: Result Comment: Perf ormed at: =G - [facility] [address] [id number] Cripple Cutter: Galilea Carrillo MD, Phone: [phone] Performed By: #### M 100.2200, L3890.6301, L7000.1800, L100.0100, L3890.6102, L3890.6006, L509.8002, BTS, L509.4006 ####[facility] [address] [place], [address] Urine Cultureon 09-15-2024 URC Culture exhibits no growth. Normal [facility] Comment on above: Performed By: #### M 100.2200, L3890.6301, L7000.1800, L100.0100, L3890.6102, L3890.6006, L509.8002, BTS, L509.4006 ####[facility] [address] [place], [place], [id number] Absolute lymphocyte countOrd ered By: Chichi Zhangkalpesh on 09-14-2024 Lymphocytes Auto (Unsp spec) [#/Vol] 2.16 10*3/uL 0.83-4.51 [facility] Absolute neutrophil countOrd ered By: Chichi Zhangkalpesh on 09-14-2024 Neutrophils (Bld) [#/Vol] 7.1 10*3/uL 2.0-7.7 [facility] Automated lymphocyte count a s percentage of total leukocytesOrdered By: Chichi Zhangkalpesh on 09-14-2024 Lymphocytes/100 WBC Auto (Unsp spec) 22.0 % 19-41 [facility] Basophil percentageOrdered B y: Chichi Zhangkalpesh on 09-14-2024 Basophils/100 WBC (Bld) 0.3 % 0-1 [facility] C. trachomatis rRNA MAXIMILIANO+prob e Ql (Unsp spec)Ordered By: Chichi Zhangkalpesh on 09-14-2024 Chlamydia DNA (MAXIMILIANO) Negative Negative [facility] CBC W/Diff, Automatedon 08-19 Absolute Lymph 2.16 X10 3/uL Normal 0.83-4.51 [facility] Comment on above: Performed By: #### M 100.2200, L3890.6301, L7000.1800, L100.0100, L3890.6102, L3890.6006, L509.8002, BTS, L509.4006 #### [facility] [address] [place], [address] Absolute Neut 7.1 X10 3/uL Normal 2.0-7.7 [facility] Comment on above: Performed By: #### M 100.2200, L3890.6301, L7000.1800, L100.0100, L3890.6102, L3890.6006, L509.8002, BTS, L509.4006 #### [facility] [address] [place], [address] Basophils/100 WBC (Bld) 0.3 % Normal 0-1 [facility] Comment on above: Performed By: #### M 100.2200, L3890.6301, L7000.1800, L100.0100, L3890.6102, L3890.6006, L509.8002, BTS, L509.4006 #### [facility] [address] [place], [address] Eosinophils/100 WBC (Bld) 0.7 % Normal 0-5 [facility] Comment on above: Performed By: #### M 100.2200, L3890.6301, L7000.1800, L100.0100, L3890.6102, L3890.6006, L509.8002, BTS, L509.4006 #### [facility] [address] [place], [address] Erythrocyte distribution width (RBC) [Ratio] 13.2 % Normal 11.6-14.6 [facility] Comment on above: Performed By: #### M 100.2200, L3890.6301, L7000.1800, L100.0100, L3890.6102, L3890.6006, L509.8002, BTS, L509.4006 #### [facility] [address] [place], [address] Hematocrit (Bld) [Volume fraction] 39.3 % Normal 37-47 [facility] Comment on above: Performed By: #### M 100.2200, L3890.6301, L7000.1800, L100.0100, L3890.6102, L3890.6006, L509.8002, BTS, L509.4006 #### [facility] [address] [place], [address] Hemoglobin (Bld) [Mass/Vol] 13.5 g/dL Normal 12.0-15.0 [facility] Comment on above: Performed By: #### M 100.2200, L3890.6301, L7000.1800, L100.0100, L3890.6102, L3890.6006, L509.8002, BTS, L509.4006 #### [facility] [address] [place], [address] IG% 0.400 Normal 0.0-0.9 [facility] Comment on above: Result Comment: IG% - Immature Granulocytes (promyelocytes, myelocytes and metamyelocytes) > 1% indicates that a LEFT SHIFT is Present. Performed By: #### M 100.2200, L3890.6301, L7000.1800, L100.0100, L3890.6102, L3890.6006, L509.8002, BTS, L509.4006 #### [facility] [address] [place], [address] Lymphocytes/100 WBC (Bld) 22.0 % Normal 19-41 [facility] Comment on above: Performed By: #### M 100.2200, L3890.6301, L7000.1800, L100.0100, L3890.6102, L3890.6006, L509.8002, BTS, L509.4006 #### [facility] [address] [place], [address] MCH (RBC) [Entitic mass] 30.1 pg Normal 27.0-32.0 [facility] Comment on above: Performed By: #### M 100.2200, L3890.6301, L7000.1800, L100.0100, L3890.6102, L3890.6006, L509.8002, BTS, L509.4006 #### [facility] [address] [place], [address] MCHC (RBC) [Mass/Vol] 34.4 g/dL Normal 32-36 [facility] Comment on above: Performed By: #### M 100.2200, L3890.6301, L7000.1800, L100.0100, L3890.6102, L3890.6006, L509.8002, BTS, L509.4006 #### [facility] [address] [place], [address] MCV (RBC) [Entitic vol] 87.7 fL Normal 81-[address] [facility] Comment on above: Performed By: #### M 100.2200, L3890.6301, L7000.1800, L100.0100, L3890.6102, L3890.6006, L509.8002, BTS, L509.4006 #### [facility] [address] [place], [address] Monocytes/100 WBC (Bld) 4.1 % Normal 0-[address] [facility] Comment on above: Performed By: #### M 100.2200, L3890.6301, L7000.1800, L100.0100, L3890.6102, L3890.6006, L509.8002, BTS, L509.4006 #### [facility] [address] [place], [address] Neutrophils/100 WBC (Bld) 72.5 % High 47-70 [facility] Comment on above: Performed By: #### M 100.2200, L3890.6301, L7000.1800, L100.0100, L3890.6102, L3890.6006, L509.8002, BTS, L509.4006 #### [facility] [address] [place], [address] Nucleated RBC (Bld) [#/Vol] 0 10*3/uL Normal 0-5 [facility] Comment on above: Performed By: #### M 100.2200, L3890.6301, L7000.1800, L100.0100, L3890.6102, L3890.6006, L509.8002, BTS, L509.4006 #### [facility] [address] [place], [address] Platelet mean volume (Bld) [Entitic vol] 9.9 fL Normal 6.2-12.0 [facility] Comment on above: Performed By: #### M 100.2200, L3890.6301, L7000.1800, L100.0100, L3890.6102, L3890.6006, L509.8002, BTS, L509.4006 #### [facility] [address] [place], [address] Platelets (Bld) [#/Vol] 268 10*3/uL Normal 150-450 [facility] Comment on above: Performed By: #### M 100.2200, L3890.6301, L7000.1800, L100.0100, L3890.6102, L3890.6006, L509.8002, BTS, L509.4006 #### [facility] [address] [place], [address] RBC (Bld) [#/Vol] 4.48 10*6/uL Normal 4.2-5.4 [facility] Comment on above: Performed By: #### M 100.2200, L3890.6301, L7000.1800, L100.0100, L3890.6102, L3890.6006, L509.8002, BTS, L509.4006 #### [facility] [address] [place], [address] RDW SD 42.5 fl Normal 35.1-43.9 [facility] Comment on above: Performed By: #### M 100.2200, L3890.6301, L7000.1800, L100.0100, L3890.6102, L3890.6006, L509.8002, BTS, L509.4006 #### [facility] [address] [place], [address] WBC (Bld) [#/Vol] 9.8 10*3/uL Normal 4.4-11.0 [facility] Comment on above: Performed By: #### M 100.2200, L3890.6301, L7000.1800, L100.0100, L3890.6102, L3890.6006, L509.8002, BTS, L509.4006 #### [facility] [address] [place], [place], [id number] Chlamydia trachomatis rRNA d etection by probe and target amplification methodOrdered By: Chichi Hu on 09-14-2024 C. trachomatis rRNA MAXIMILIANO+probe Ql (Unsp spec) Negative Negative [facility] Eosinophil percentageOrdered By: Chichi Hu on 09-14-2024 Eosinophils/100 WBC (Bld) 0.7 % 0-5 [facility] Erythrocyte distribution wid th ratioOrdered By: Chichi Hu on 09-14-2024 Erythrocyte distribution width (RBC) [Ratio] 13.2 % 11.6-14.6 [facility] Erythrocyte distribution wid th standard deviationOrdered By: Chichi Hu on 09-14-2024 Erythrocyte distribution width (RBC) [Entitic vol] 42.5 fL 35.1-43.9 [facility] Erythrocyte distribution width (RBC) [Ratio] 42.5 fl 35.1-43.9 [facility] HBV surface Ag Ql (S)Ordered By: Chichi Hu on 09-14-2024 Hepatitis B Surface Antigen Non-Reactive Nonreactive [facility] Comment on above: Reactive: Presumptiv e evidence of HBV. Repeatedly reactive samples must be confirmed using a neutralization test ([facility] HBsAg Confirmatory Test)Non-Reactive: HBsAg not detected; does not exclude the possibility of exposure to HBV Hematocrit Auto (Bld) [Volum e fraction]Ordered By: Chichi Hu on 09-14-2024 Hematocrit (Bld) [Volume fraction] 39.3 % 37-47 [facility] Hemoglobin measurementOrdere d By: Chichi Fritz on 09-14-2024 Hemoglobin (Bld) [Mass/Vol] 13.5 g/dL 12.0-15.0 [facility] Hepatitis C antibodyOrdered By: Chichi Hu on 09-14-2024 Hepatitis C Antibody Non-Reactive Nonreactive [facility] Comment on above: Reactive: Presumptiv e evidence of antibodies to HCV. Follow CDC recommendations for supplemental testing.Non-Reactive: Antibodies to HCV were not detected; does not exclude the possibility of exposure to HCVReactive Results are presumptive evidence of antibodies to HCV. Follow CDC recommendations for supplemental testing.Order confirmation testing: HCV Quant by PCR testing - HCVPCR #[id number] Non Reactive: < 0.8 Equivocal: >/= 0.8 to < 1.0 Reactive: >/= 1.0The CDC requires that a reactive/equivocal HCV antibody result be sent out for confirmation. HCV Quant by PCR testing. Immature granulocytes/100 WB C Auto (Bld)Ordered By: Chichi Hu on 09-14-2024 Immature granulocytes/100 WBC (Bld) 0.400 % 0.0-0.9 [facility] Comment on above: IG% - Immature Granu locytes (promyelocytes, myelocytes and metamyelocytes) > 1% indicates that a LEFT SHIFT is Present. L3890.6006on 09-14-2024 HIV Non-Reactive Normal Nonreactive [facility] Comment on above: Result Comment: Non- Reactive Reactive Repeatedly reactive samples must be confirmed according to CDC recommended confirmatory algorithms. The subresults for either HIVAG or AHIV can be used as an aid in the selection of the confirmation algorithm for reactive samples. Send out specimens with Reactive results to [facility] for confirmation. Order the HIV antibody detection and differentiation: [id number] Performed By: #### M 100.2200, L3890.6301, L7000.1800, L100.0100, L3890.6102, L3890.6006, L509.8002, BTS, L509.4006 #### [facility] Laboratory [facility] [place], [address] L3890.6102on 09-14-2024 HEP B Surf Ag Non-Reactive Normal Nonreactive [facility] Comment on above: Result Comment: Reac tive: Presumptive evidence of HBV. Repeatedly reactive samples must be confirmed using a neutralization test ([employer] HBsAg Confirmatory Test) Non-Reactive: HBsAg not detected; does not exclude the possibility of exposure to HBV Performed By: #### M 100.2200, L3890.6301, L7000.1800, L100.0100, L3890.6102, L3890.6006, L509.8002, BTS, L509.4006 #### [facility] [address] [place], [address] L3890.6301on 09-14-2024 Hepatitis C Ab Non-Reactive Normal Nonreactive [facility] Comment on above: Result Comment: Reac tive: Presumptive evidence of antibodies to HCV. Follow CDC recommendations for supplemental testing. Non-Reactive: Antibodies to HCV were not detected; does not exclude the possibility of exposure to HCV Reactive Results are presumptive evidence of antibodies to HCV. Follow CDC recommendations for supplemental testing. Order confirmation testing: HCV Quant by PCR testing - HCVPCR #[id number] Non Reactive: < 0.8 Equivocal: >/= 0.8 to < 1.0 Reactive: >/= 1.0 The CDC requires that a reactive/equivocal HCV antibody result be sent out for confirmation. HCV Quant by PCR testing. Performed By: #### M 100.2200, L3890.6301, L7000.1800, L100.0100, L3890.6102, L3890.6006, L509.8002, BTS, L509.4006 #### [facility] [address] [place], [address] L509.4006on 09-14-2024 Rubella IgG Non-Reactive Normal Nonreactive [facility] Comment on above: Result Comment: Anti body Result: Interpretation Non-Reactive: Non-Immune Reactive: Immune The following results were obtained with the [employer] Rubella IgG assay. Results from assays of other manufacturers cannot be used interchangeably. Performed By: #### M 100.2200, L3890.6301, L7000.1800, L100.0100, L3890.6102, L3890.6006, L509.8002, BTS, L509.4006 #### [facility] [address] [place], [address] L509.8002on 09-14-2024 Syphilis Abs Non-Reactive Normal Nonreactive [facility] Comment on above: Performed By: #### M 100.2200, L3890.6301, L7000.1800, L100.0100, L3890.6102, L3890.6006, L509.8002, BTS, L509.4006 #### [facility] [address] [facility] [place], [place], [address] Laboratory - Microbiology an d Antimicrobial susceptibilityOrdered By: Chichi Hu on 09-14-2024 HBV surface Ag Ql (S) Non-Reactive Nonreactive [facility] Comment on above: Reactive: Presumptiv e evidence of HBV. Repeatedly reactive samples must be confirmed using a neutralization test ([employer] HBsAg Confirmatory Test)Non-Reactive: HBsAg not detected; does not exclude the possibility of exposure to HBV Lymphocytes Auto (Unsp spec) [#/Vol]Ordered By: Chichi Hu on 09-14-2024 Lymphocytes (Bld) [#/Vol] 2.16 10*3/uL 0.83-4.51 [facility] Lymphocytes/100 WBC Auto (Un sp spec)Ordered By: Chichi Hu on 09-14-2024 Lymphocytes/100 WBC (Bld) 22.0 % 19-41 [facility] MCV (mean corpuscular volume ) determinationOrdered By: Chichi Hu on 09-14-2024 MCV (RBC) [Entitic vol] 87.7 fL 81-99 [facility] Mean corpuscular hemoglobin (MCH) determinationOrdered By: Chichi Hu on 09-14-2024 MCH (RBC) [Entitic mass] 30.1 pg 27.0-32.0 [facility] Mean corpuscular hemoglobin concentration (MCHC) determinationOrdered By: Chichi Hu on 09-14-2024 MCHC (RBC) [Mass/Vol] 34.4 g/dL 32-36 [facility] Mean platelet volume determi nationOrdered By: Chichi Fritz on 09-14-2024 Platelet mean volume (Bld) [Entitic vol] 9.9 fL 6.2-12.0 [facility] Monocyte percentageOrdered B y: Chichi Fritz on 09-14-2024 Monocytes/100 WBC (Bld) 4.1 % 0-10 [facility] Neisseria gonorrhoeae nuclei c acid detection by amplified probe techniqueOrdered By: Chichi Hu on 09-14-2024 N. gonorrhoeae DNA MAXIMILIANO+probe Ql (Unsp spec) Negative Negative [facility] Comment on above: Performed at: =[address] [id number] Director: Galilea Carrillo MD, Phone: [phone] Neutrophil percentageOrdered By: Chichi Hu on 09-14-2024 Neutrophils/100 WBC (Bld) 72.5 % High 47-70 [facility] No Panel InformationOrdered By: Chichi Hu on 09-14-2024 HIV (1&2) Antibody Non-Reactive Nonreactive [facility] Comment on above: Non-ReactiveReactive Repeatedly reactive samples must be confirmed according to CDC recommended confirmatory algorithms. The subresults for either HIVAG or AHIV can be used as an aid in the selection of the confirmation algorithm for reactive samples.Send out specimens with Reactive results to [facility] for confirmation.Order the HIV antibody detection and differentiation: #[id number] Syphilis Total Antibody Non-Reactive Nonreactiv e [facility] Nucleated red blood cell per centageOrdered By: Chichi Hu on 09-14-2024 Nucleated RBC/100 WBC (Bld) [Ratio] 0 % 0-5 [facility] Program Management Manager Office Visit Reporton 09-14-2024 Program Management Manager Office Visit Report [facility]'[address], [address] [place] [address] OFFICE VISIT Date of Service: 09/14/24 MR#: [id number] Acct: [id number] Name: MAREK KEYES Rep #: [id number] : 1995 Provider: PARVIZ Fitzgerald ams Age/Sex: 28/F [place] [facility] [place]: [place] Intake Vital Signs 11/04/22 10:14 09/14/24 10:29 09/14/24 10:31 Height 5 ft 1 in 5 ft 1 in 5 ft 1 in Weight: 116 lb BMI 21.9 BP 125/72 H Intake Visit Reasons: New OB, LMP 07/04 MILENA 04/10/25 [place] A Driver Required: No Is patient in pain?: No Allergies No Known Allergies Allergy (Verified 09/14/24 10:29) Medications ???Medication ???Instructions ???Recorded ???Confirmed ???Type multivit-min no.71-iron fum 28 cap PO 08/24/24 09/14/24 History mg-folate no.1 1 mg-dha 300 mg capsule (PNV-[facility]) Last Menstrual Period: 07/04/24 Zika: Zika virus screening: Negative : No PFSH PFSH Medical History Vaginal after Surgical History Hx of section Social History adopted: No household members: spouse and children housing: house number of children: 2 service: No 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: No pets and animals: No history of recent travel: No (December) sexually active: Yes Smoking Status: Never smoker second hand exposure: No alcohol intake: current alcohol intake frequency: holidays/special occasions only details: social occasions- Not while substance use type: does not use diet: lactose free well-balanced diet: daily or most days caffeine: Yes Type: coffee Number of servings: 1 eating out: 1-3 times/week during the past year weight has: remained stable what type of physical activity do you participate in: walking and other details: pilates frequency: 3-4 times per week duration: 45-60 minutes/day dustin/bahai: Moravian seatbelt use: always do you feel safe at home: Yes additional social history: Spouse - Raciel History 3 Elective abortions Hx Para 2 Spontaneous abortions Hx # Term Pregnancies Ectopic pregnancies Hx # Pregnancies Multiple births # of living children 2 Past Pregnancies Del. Date Name GA/Weeks Outcome Route Bth Weight Gen Labor Lgth Anesthesia Del Locatn Provider FOB Unknown 06/16/20 [place] 40 live - full term 7# 15 oz Male 8 hours gen jeet Schrader 09/17/22 [place] 39 live - full term 6# 11oz [facility] Date: Last Updated by: Hannah Strickland Emergency csection due to decels during pushing Delivery Date: 09/17/22 Last Updated by: Ami Lawrence HPI New OB, LMP 07/04 MILENA 04/10/25 Details: MAREK KEYES is a 28 year old who presents for New OB visit. OB Visit MILENA Calculator Estimated Delivery Date Method Current WG Current Estimate 04/10/25 LMP (Certain) 10w 2d Other Estimates 04/09/25 Ultrasound #1 10w 3d Comments: HIV: Urine Culture: Sequential Screen: NIPT Screen: Estimated Due Date: 04/10/25 Expected Delivery Route/Plan patient counseled regarding risks/benefits of trial of labor versus repeat . ACOG/uptodate education given to patient. 93 % likelihood of success per calculator TOLAC consent form signed: [] Labor Preferences- CB/BF classes: [] labor support person: [] labor intervention preferences: [] pain management options preferred: [] cut cord/dad catch: [] : [] PP control planned: [] discussed possible routes of delivery and associated risks: [] special requests: [] Specific Issue/Plans Covid status: [] Flu vaccine: [] Tdap vaccine: [] Rhogam: [] LARC form signed: [] Problem list reviewed and updated with the most current plan of care details and appropriate orders placed. Relevant counseling for the gestational age provided. Continue routine care and follow up unless otherwise noted in visit notes/problem list details Initial Weight: 116 lb Date -???-???-???-???-???-?? ?-???-???-???-???-???-? ??- EGA Weight BP Urine Prot -???-???-???-???-???-?? ?-???-???-???-???-???-? ??- Glucose FHR FuHt Pres Dilation -???-???-???-???-???-?? ?-???-???-???-???-???-? ??- Effaced St Visit Note 09/14/24 -???-???-???-???-???-?? ?-???-???-???-???-???-? ??- 10w 2d 116 lb (+0 oz) 125/72 -???-???-???-???-???-?? ?-???-???-???-???-???-? ??- 159 -???-???-???-???-???-?? ?-???-???-???-???-???-? ??- KW- CRL cons with dates. decline (more content not included)... Normal [facility] Platelet countOrdered By: Tom Hu on 09-14-2024 Platelets (Bld) [#/Vol] 268 10*3/uL 150-450 [facility] RBC Auto (Bld) [#/Vol]Ordere d By: Chichi Hu on 09-14-2024 RBC (Bld) [#/Vol] 4.48 10*6/uL 4.2-5.4 [facility] Rubella immune status determ ination by IgG antibody assayOrdered By: Chichi Hu on 09-14-2024 Rubella IgG Antibody Non-Reactive Nonreactive [facility] Comment on above: Antibody Result: Int erpretationNon-Reactive: Non-ImmuneReactive: ImmuneThe following results were obtained with the [employer] Rubella IgG assay. Results from assays of other manufacturers cannot be used interchangeably. Type AND Screenon 09-14-2024 ABO and Rh group Nom (Bld) Blood group A Rh(D) positive Normal [facility] Comment on above: Order Comment: PN Performed By: #### M 100.2200, L3890.6301, L7000.1800, L100.0100, L3890.6102, L3890.6006, L509.8002, BTS, L509.4006 #### [facility] Laboratory [address] [place], [place], [id number] Urine cultureOrdered By: Stephenie Hu on 09-14-2024 Bacteria identified Cx Nom (U) Culture exhibits no growth. [facility] White blood cell (WBC) count Ordered By: Chichi Hu on 09-14-2024 WBC (Bld) [#/Vol] 9.8 10*3/uL 4.4-11.0 [facility] Absolute lymphocyte countOrd ered By: Dr. Dillon on 09-17-2022 Lymphocytes Auto (Unsp spec) [#/Vol] 1.99 10*3/uL 0.83-4.51 [facility] Basophil percentageOrdered B y: Dr. Dillon on 09-17-2022 Basophils/100 WBC (Bld) 0.2 % 0-1 [facility] Eosinophils/100 WBC (Bld) 0.2 % 0-5 [facility] Neutrophils (Bld) [#/Vol] 9.4 10*3/uL 2.0-7.7 [facility] Neutrophils/100 WBC (Bld) 77.8 % 47-70 [facility] WBC (Bld) [#/Vol] 12.1 10*3/uL 4.4-11.0 [facility] Blood erythrocytes count (nu mber/volume)Ordered By: Dr. Dillon on 09-17-2022 RBC (Bld) [#/Vol] 4.27 10*6/uL 4.2-5.4 [facility] Blood hemoglobin measurement (mass/volume)Ordered By: Dr. Dillon on 09-17-2022 Hemoglobin (Bld) [Mass/Vol] 11.1 g/dL 12.0-15.0 [facility] Blood lymphocytes/100 leukoc ytesOrdered By: Dr. Dillon on 09-17-2022 Lymphocytes/100 WBC (Bld) 16.5 % 19-41 [facility] Blood monocytes/100 leukocyt esOrdered By: Dr. Dillon on 09-17-2022 Monocytes/100 WBC (Bld) 4.6 % 0-10 [facility] Blood platelet mean volumeOr dered By: Dr. Dillon on 09-17-2022 Platelet mean volume (Bld) [Entitic vol] 10.3 fL 6.2-12.0 [facility] Determination of erythrocyte mean corpuscular volume (MCV)Ordered By: Dr. Dillon on 09-17-2022 MCV (RBC) [Entitic vol] 82.9 fL 81-99 [facility] Hematocrit Auto (Bld) [Volum e fraction]Ordered By: Dr. Dillon on 09-17-2022 Hematocrit (Bld) [Volume fraction] 35.4 % 37-47 [facility] Laboratory - Hematology and Cell countsOrdered By: Dr. Dillon on 09-17-2022 Erythrocyte distribution width (RBC) [Entitic vol] 42.0 fL 35.1-43.9 [facility] Erythrocyte distribution width (RBC) [Ratio] 14.1 % 11.6-14.6 [facility] Immature granulocytes/100 WBC (Bld) 0.700 % 0.0-0.9 [facility] Comment on above: IG% - Immature Granu locytes (promyelocytes, myelocytes and metamyelocytes) > 1% indicates that a LEFT SHIFT is Present. MCH (RBC) [Entitic mass] 26.0 pg 27.0-32.0 [facility] Nucleated RBC/100 WBC (Bld) [Ratio] 0 % 0-5 [facility] MCHC Auto (RBC) [Mass/Vol]Or dered By: Dr. Dillon on 09-17-2022 MCHC (RBC) [Mass/Vol] 31.4 g/dL 32-36 [facility] Platelets bldOrdered By: Dr. Dillno on 09-17-2022 Platelets (Bld) [#/Vol] 267 10*3/uL 150-450 [facility] Serum Treponema species anti body detectionOrdered By: Dr. Dillon on 09-17-2022 Treponema sp Ab Ql (S) Non-Reactive [facility] Laboratory - Chemistry and C hemistry - challengeon 09-14-2022 Glucose Ql (U) Negative [facility] Laboratory - Urinalysison Protein Ql (U) Negative [facility] Laboratory - Chemistry and C hemistry - challengeon 09-09-2022 Glucose Ql (U) Negative [facility] Laboratory - Urinalysison Protein Ql (U) Negative [facility] No Panel InformationOrdered By: Smiley Conte on 08-29-2022 Group B Streptococcus Culture Group B Beta Streptococcus is not isolated. [facility] Laboratory - Chemistry and C hemistry - challengeon 08-26-2022 Glucose Ql (U) Negative [facility] Laboratory - Urinalysison Protein Ql (U) Negative [facility] Laboratory - Chemistry and C hemistry - challengeon 08-11-2022 Glucose Ql (U) Negative [facility] Laboratory - Urinalysison Protein Ql (U) Negative [facility] Laboratory - Chemistry and C hemistry - challengeon 07-20-2022 Glucose Ql (U) Negative [facility] Laboratory - Urinalysison Protein Ql (U) Positive [facility] Absolute lymphocyte countOrd ered By: Dr. Hu on 06-02-2022 Lymphocytes Auto (Unsp spec) [#/Vol] 1.66 10*3/uL 0.83-4.51 [facility] Basophil percentageOrdered B y: Dr. Hu on 06-02-2022 Basophils/100 WBC (Bld) 0.2 % 0-1 [facility] Eosinophils/100 WBC (Bld) 1.4 % 0-5 [facility] Neutrophils (Bld) [#/Vol] 8.0 10*3/uL 2.0-7.7 [facility] Neutrophils/100 WBC (Bld) 77.7 % 47-70 [facility] WBC (Bld) [#/Vol] 10.3 10*3/uL 4.4-11.0 [facility] Blood erythrocytes count (nu mber/volume)Ordered By: Dr. Hu on 06-02-2022 RBC (Bld) [#/Vol] 3.73 10*6/uL 4.2-5.4 [facility] Blood hemoglobin measurement (mass/volume)Ordered By: Dr. Hu on 06-02-2022 Hemoglobin (Bld) [Mass/Vol] 11.6 g/dL 12.0-15.0 [facility] Blood lymphocytes/100 leukoc ytesOrdered By: Dr. Hu on 06-02-2022 Lymphocytes/100 WBC (Bld) 16.1 % 19-41 [facility] Blood monocytes/100 leukocyt esOrdered By: Dr. Hu on 06-02-2022 Monocytes/100 WBC (Bld) 4.2 % 0-[address] [facility] Blood platelet mean volumeOr dered By: Dr. Hu on 06-02-2022 Platelet mean volume (Bld) [Entitic vol] 9.3 fL 6.2-12.0 [facility] Determination of erythrocyte mean corpuscular volume (MCV)Ordered By: Dr. Hu on 06-02-2022 MCV (RBC) [Entitic vol] 92.5 fL 81-99 [facility] Gestational diabetes screen 1-hour screen with 50g oral glucose loadOrdered By: Dr. Dillon on 06-02-2022 Glucose 1 Hr post 50 g glucose PO [Mass/Vol] 125 mg/dL 70-140 [facility] HIV 1 and HIV-2 antibody ass ay with HIV-1 p24 antigen detectionOrdered By: Dr. Hu on 06-02-2022 HIV 1+2 Ab+HIV1 p24 Ag IA Ql Non-Reactive Nonreactive [facility] Hematocrit Auto (Bld) [Volum e fraction]Ordered By: Dr. Hu on 06-02-2022 Hematocrit (Bld) [Volume fraction] 34.5 % 37-47 [facility] Laboratory - Chemistry and C hemistry - challengeon 06-02-2022 Glucose Ql (U) Negative [facility] Laboratory - Hematology and Cell countsOrdered By: Dr. Hu on 06-02-2022 Erythrocyte distribution width (RBC) [Entitic vol] 44.1 fL 35.1-43.9 [facility] Erythrocyte distribution width (RBC) [Ratio] 13.0 % 11.6-14.6 [facility] Immature granulocytes/100 WBC (Bld) 0.400 % 0.0-0.9 [facility] Comment on above: IG% - Immature Granu locytes (promyelocytes, myelocytes and metamyelocytes) > 1% indicates that a LEFT SHIFT is Present. MCH (RBC) [Entitic mass] 31.1 pg 27.0-32.0 [facility] Nucleated RBC/100 WBC (Bld) [Ratio] 0 % 0-5 [facility] Laboratory - Urinalysison Protein Ql (U) Negative [facility] MCHC Auto (RBC) [Mass/Vol]Or dered By: Dr. Hu on 06-02-2022 MCHC (RBC) [Mass/Vol] 33.6 g/dL 32-36 [facility] No Panel InformationOrdered By: Dr. Hu on 06-02-2022 Hepatitis B Surface Antigen Non-Reactive Nonreactive [facility] Hepatitis C Antibody Non-Reactive Nonreactive [facility] Comment on above: Non Reactive: < 0.8 Equivocal: >/= 0.8 to < 1.0 Reactive: >/= 1.0The CDC recommends that a reactive/equivocal HCV antibody result be followed up by the HCV Nucleic Acid Amplificationtest ([id number]) Rubella IgG Antibody Non-Reactive Nonreactive [facility] Comment on above: Antibody Results Int erpretation of Immune Status Non Reactive Presumed Non-Immune Equivocal Equivocal Reactive Presumed Immune Platelets bldOrdered By: Dr. Hu on 06-02-2022 Platelets (Bld) [#/Vol] 251 10*3/uL 150-450 [facility] Serum Treponema species anti body detectionOrdered By: Dr. Hu on 06-02-2022 Treponema sp Ab Ql (S) Non-Reactive [facility] Laboratory - Chemistry and C hemistry - challengeon 05-13-2022 Glucose Ql (U) Negative [facility] Work Phone: Laboratory - Urinalysison Protein Ql (U) Negative [facility] Work Phone: CNOVon 04-07-2022 CNOV Office Visit (AAPSTF ) MAREK KEYES ([id number]) 1995 F Date Time Provider Department 04/07/22 10:30 AM VERONICA HERNANDEZ AAPSTF During your visit today, we recorded the following information about you: Temperature Pulse Respiration Blood pressure 99.9 degrees 108/minute 20/minute 106/64 Weight Height 50.3 kg 1.575 m Veronica Hernandez MD 04/07/2022 11:30 AM Signed [facility] ALLERGY AND IMMUNOLOGY NEW PATIENT VISIT Patient Name: Marek Keyes PRIMARY CARE PHYSICIAN: No primary care provider on file. REASON FOR CONSULT: Eczema REQUESTING PHYSICIAN: Self My final recommendations will be communicated to the requesting health care provider by way of the shared medical record for internal providers or letter via the [employer] Postal Service for external providers. CHIEF COMPLAINT: Patient presents with: Rash HISTORY OF PRESENT ILLNESS: Marek Keyes is a 26 year old female who presents with atopic dermatitis: Eczema: Diagnosed with eczema in childhood. Typically occurs on arms and face. Triggers for eczema include (she is currently ), but between pregnancies she would still have flare-ups. She would like to know the cause of her symptoms Moisturizes about once per day- she uses Lubiderm. Currently bathing/showering 7 times per week. Uses hot water, soaps- Olay Eczema Prone (fragrance free) The following medications have been used for eczema: topical cream (unsure of name)- only works temporarily- wants to avoid use of medications Itching is poorly controlled at night. She has not tried any medications She took an [place] test that was positive to tomato- she tried eliminating tomato with no improvement in symptoms. She has also tried eliminating dairy and gluten with no significant improvement. 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 No systemic rxn to stinging insects. No known hx of latex glove reactions. History reviewed. No pertinent past medical history. There is no problem list on file for this patient. PAST SURGICAL HISTORY Procedure Laterality Date SECTION HX 2020 History reviewed. No pertinent family history. Social History Tobacco Use Smoking status: Never Smokeless tobacco: Never Substance Use Topics Alcohol use: Yes Comment: occ ALLERGIES: ALLERGIES Not on File CURRENT OUTPATIENT MEDICATIONS: valacyclovir HCl (VALTREX ORAL) Take by mouth as needed. REVIEW OF SYSTEMS: HEENT: negative RESPIRATORY: No cough, hemoptysis, recent chest infection, wheezing CONSTITUTIONAL: No acute distress. No weight loss or gain, no fevers or chills CARDIOVASCULAR: negative for chest pain, leg swelling or palpitations. GASTROINTESTINAL: Negative for abdominal discomfort, No blood in stools or black stools MUSCULOSKELETAL: negative for joint pain or swelling, back pain or muscle pain. NEUROLOGIC:Negative for focal numbness or weakness, headaches and dizziness or syncope. DERM/SKIN: as per HPI PSYCHIATRIC: Negative for sleep disturbance, mood disorder and recent psychosocial stressors HEMATOLOGIC/LYMPHATIC/I MMUNOLOGIC:Negative for cold or heat intolerance, polyuria, polydipsia and goiter. PHYSICAL EXAM: BP 106/64 Pulse 108 Temp (Src) 99.9[double checked[ (Temporal Artery) Resp 20 Ht 5' 2 (1.58m) Wt 111 lb (50.3kg) SpO2 100% BMI 20.30 kg/(m2). General appearance: Well appearing, alert, in no acute distress, well-hydrated, well nourished. HENT: External ears normal, canals clear, TM's normal Eyes: no scleral icterus, PERRLA, EOMS, no conjunctivitis Respiratory: Lungs clear to auscultation. No wheezing, rhonchi, rales Cardiovascular: RRR without murmur, gallop, or rubs. No ectopy Gastroenterology: normal appearing abdomen on inspection Musculoskeletal: No joint pain, muscle weakness, or impaired gait Integumentary: Areas of erythema and xerosis on face and flexural surface of arms Psychiatric: Alert and oriented x 3. No mood disorders noted, calm affect. DATA: No data available Assessment/Recommendati ons: Flexural atopic dermatitis (primary encounter diagnosis) Comment: Discussed pathophysiology and stepwise treatment modalities for moderate eczema. As she is she is trying to limit any use of pharmacologic agents. Discussed that first-line therapy for eczema is aggressive use of emollients and moisturizers. Discussed preferred products and the best ways to lock in moisture particularly after showers. On her face and arms would advise use of Vaseline as a barrier. Discussed the role of food and atopic dermatitis, based on her h (more content not included)... Normal [facility] Cervical or vagninal specime n microscopic examination by cytology stain (reported ason 03-10-2022 Cytology report Cyto stain Doc (Cvx/Vag) Comment . [facility] Work Phone: Comment on above: The Pap smear is a s creening test designed to aid in thedetection of premalignant and malignant conditions of theuterine cervix. It is not a diagnostic procedure andshould not be used as the sole means of detecting cervicalcancer. Both false-positive and false-negative reports dooccur. Chlamydia trachomatis rRNA d etection by probe and target amplification methodon 03-10-2022 C. trachomatis rRNA MAXIMILIANO+probe Ql (Unsp spec) Negative Negative [facility] Work Phone: Laboratory - Cytologyon 02-16 Manager [place] Cyto stain Nom (Cvx/Vag) [ID] Comment . [facility] Work Phone: Comment on above: Aubree Khan, Cytot echnologist (ASC) Laboratory - Drug toxicology on 03-10-2022 Amphetamines Ql (U) Negative <1000 ng/mL [facility] Work Phone: Benzodiazepines Ql (U) Negative < 200 ng/mL [facility] Work Phone: Cannabinoids Screen Ql (U) Negative < 50 ng/mL [facility] Work Phone: Cocaine Ql (U) Negative < 300 ng/mL [facility] Work Phone: Opiates Ql (U) Negative < 300 ng/mL [facility] Work Phone: Laboratory - Microbiology an d Antimicrobial susceptibilityon 03-10-2022 N. gonorrhoeae DNA MAXIMILIANO+probe Ql (Unsp spec) Negative Negative [facility] Work Phone: Comment on above: Performed at: =G - [facility] [address] [id number] Director: Galilea Carrillo MD, Phone: [phone] Laboratory - Miscellaneous t estson 03-10-2022 Service comment (Unsp spec) [Interp] Comment . [facility] Work Phone: Comment on above: This liquid based Th inPrep(R) pap test was screened withthe use of an image guided system. Service comment (Unsp spec) [Interp] . . [facility] Work Phone: No Panel Informationon 03-10 Human Papillomavirus Screen Comment . [facility] Work Phone: Comment on above: The HPV DNA reflex c riteria were not met with this specimenresult therefore, no HPV testing was performed.Performed at: WB - [facility] [address] [id number] Director: Galilea Carrillo MD, Phone: [phone] MDMA (Ecstasy) Screen Negative < 500 ng/mL [facility] Work Phone: Pathology report final diagnosis Narrative Comment . [facility] Work Phone: Comment on above: NEGATIVE FOR INTRAEP ITHELIAL LESION OR MALIGNANCY. Urine Barbiturates Screen Negative < 200 ng/mL [facility] Work Phone: Urine Drug Screen Comment [facility] Work Phone: Comment on above: CONFIRMATORY TESTING FOR ALL POSITIVE URINE DRUG SCREENRESULTS WILL ONLY BE SENT OUT UPON PHYSICIAN ORDER. VISTA Urine Drug Screen methods provide only preliminaryanalytical test results. A more specific alternate chemicalmethod must be used in order to obtain a confirmedanalytical result. Gas chromatography/mass spectrometery(GC/MS) is the preferred confirmatory method. Clinicalconsideration and professional judgement should be appliedto any drug of abuse test result, particularly whenpreliminary positive results are used. URINE TCA TESTING MUST BE ORDERED SEPARATELY. USE TESTMNEMONIC: [facility]CA Urine Methadone Screen Negative < 300 ng/mL [facility] Work Phone: Urine phencyclidine (PCP) de abdiel 03-10-2022 Phencyclidine Ql (U) Negative < 25 ng/mL Bianca [facility] Work Phone: Final Surgical Pathology Rep alia 06-18-2020 Final Surgical Pathology Report . Pathology Reports Accession: Collected Date/Time: Received Date/Time: Pathologist: [id number] 06/16/2020 07:02 EST 06/17/2020 07:41 EST DO MALISSA GARCIA Final Surgical Pathology Report DIAGNOSIS: MATURE-APPEARING HARDIN PLACENTA WITH INFARCT (0.8 CM), 3-VESSEL UMBILICAL CORD, AND UNREMARKABLE MEMBRANES. COMMENT: FORMERLY [facility] D# [id number] CLINICAL INFORMATION: Procedure: PRIMARY EMERGENCY SECTION Preoperative diagnosis: INTOLERANCE OF LABOR Postoperative diagnosis: CORD ENTANGLEMENT SPECIMEN: PLACENTA GROSS DESCRIPTION: Received in formalin, labeled with the patients name, Case #[id number], and placenta is a hardin placenta weighing 560 g and measuring 20 x 18 x 2.7 cm. The 3 vessel umbilical cord inserts 1 cm to the nearest placental margin, measures 43 cm long, and 1.1 cm diameter. Extraplacental membranes are tannish-pan, slimy, opaque and inserting at the placental margin. The surface is purple-blue with arborizing vasculature. The maternal surface is red-brown with mostly intact lobulations. On cut section the disc is red-brown, soft and spongy with at the periphery is a yellow rubbery area measuring 0.8 x 0.7 x 0.5 cm. Bioinformatics Programmer sections in 3 cassettes. Dictated by GONZALO NEGRETE MICROSCOPIC DESCRIPTION: Slides reviewed. Electronically Signed by Pathology Report verified by [facility] Electronically signed by MALISSA GARCIA DO Sign out Date: 06/18/2020 13:09 Performing Lab: [facility], [address] [place] [id number] [facility] ([place]) Comment on above: Performed By: #### C BC, ADIFF, ANEU, ABOG, ANSG #### [address] [address] .Auto Diffon 06-17-2020 Ammonia (P) [Mass/Vol] 0.80 10 3/mcL Normal 0.15-1.00 [facility] Comment on above: Performed By: #### ANURAG YEPEZ, ANEU #### Cesar [address] [address] Basophils (Bld) [#/Vol] 0.00 10 3/mcL Normal 0.00-0.19 [facility] ([place] Comment on above: Performed By: #### ANURAG YEPEZ, ANEU #### Cesar [address] [address] Basophils/100 WBC (Bld) 0.2 % Normal 0.0-2.5 A [facility] ([place]) Comment on above: Performed By: #### ANURAG YEPEZ, ANEU #### [address] [address] Eosinophils (Bld) [#/Vol] 0.10 10 3/mcL Normal 0.00-0.40 [facility] ([place] Comment on above: Performed By: #### ANURAG YEPEZ, ANEU #### [address] [address] Eosinophils/100 WBC (Bld) 0.7 % Normal 0.0-7.0 [facility] ([place] Comment on above: Performed By: #### ANURAG YEPEZ, ANEU #### Cesar [address] [address] Lymphocytes (Bld) [#/Vol] 1.70 10 3/mcL Normal 0.77-3.85 [facility] ([place] Comment on above: Performed By: #### ANURAG YEPEZ, ANEU #### [address] [address] Lymphocytes/100 WBC (Bld) 16.8 % Normal 10.0-50.0 [facility] ([place] Comment on above: Performed By: #### ANURAG YEPEZ, ANEU #### Cesar [address] [address] Monocytes/100 WBC (Bld) 7.7 % Normal 1.7-13.0 A [facility] ([place]) Comment on above: Performed By: #### ANURAG YEPEZ ANEU #### Cesar [address] [address] Neutrophils/100 WBC (Bld) 74.6 % Normal 37.0-80.0 [facility] ([place] Comment on above: Performed By: #### ANURAG YEPEZ, JACOBY #### Cesar [address] [address] .NEUABSon 06-17-2020 Neutrophils (Bld) [#/Vol] 7.70 10 3/mcL High 2.85-6.16 [facility] ([place] Comment on above: Performed By: #### ANURAG YEPEZ ANEU #### Cesar [address] [address] CBCon 06-17-2020 Erythrocyte distribution width (RBC) [Ratio] 18.5 % High 11.5-14.5 [facility] Comment on above: Performed By: #### ANURAG YEPEZ, JACOBY #### Cesar [address] [address] Hematocrit (Bld) [Volume fraction] 22.9 % Low 37.0-47.0 [facility] ([place] Comment on above: Performed By: #### ANURAG YEPEZ, JACOBY #### Cesar [address] [address] Hemoglobin (Bld) [Mass/Vol] 7.7 G/dL Low 12.0-16.0 [facility] [place] Comment on above: Performed By: #### ANURAG YEPEZ, ANEU #### Cesar [address] [address] MCH (RBC) [Entitic mass] 29.4 pg Normal 27.0-31.2 [facility] ([place] Comment on above: Performed By: #### ANURAG YEPEZ, ANEU #### Cesar [address] [address] MCHC (RBC) [Mass/Vol] 33.8 G/dL Normal 33.0-37.0 [facility] ([place]) Comment on above: Performed By: #### ANURAG YEPEZ, JACOBY #### [address] [address] MCV (RBC) [Entitic vol] 86.8 fL Normal 80.0-94.0 A [facility] ([place]) Comment on above: Performed By: #### ANURAG YEPEZ, ANEU #### [address] [address] Platelet mean volume (Bld) [Entitic vol] 7.4 fL Normal 7.4-10.4 [facility] [place] Comment on above: Performed By: #### ANURAG YEPEZ, ANEU #### [address] [address] Platelets (Bld) [#/Vol] 158 10 3/mcL Normal 130-400 [facility] ([place] Comment on above: Performed By: #### ANURAG YEPEZ, ANEU #### [address] [address] RBC (Bld) [#/Vol] 2.63 10 6/mcL Low 4.20-5.40 [facility] ([place]) Comment on above: Performed By: #### ANURAG YEPEZ, ANEU #### [address] [address] WBC (Bld) [#/Vol] 10.30 10 3/mcL Normal 4.60-10.80 [facility] ([place]) Comment on above: Performed By: #### ANURAG YEPEZ, ANEU #### [address] [address] .Auto Diffon 06-16-2020 Ammonia (P) [Mass/Vol] 0.80 10 3/mcL Normal 0.15-1.00 [facility] [place] Comment on above: Performed By: #### ANURAG YEPEZ, JACOBY, ABOG, ANSG #### [address] [address] Basophils (Bld) [#/Vol] 0.00 10 3/mcL Normal 0.00-0.19 [facility] [place] Comment on above: Performed By: #### C BC, ADIFF, ANEU, ABOG, ANSG #### [address] [address] Basophils/100 WBC (Bld) 0.1 % Normal 0.0-2.5 A [facility] ([place]) Comment on above: Performed By: #### C BC, ADIFF, ANEU, ABOG, ANSG #### [address] [address] Eosinophils (Bld) [#/Vol] 0.00 10 3/mcL Normal 0.00-0.40 [facility] ([place] Comment on above: Performed By: #### C BC, ADIFF, ANEU, ABOG, ANSG #### [address] [address] Eosinophils/100 WBC (Bld) 0.2 % Normal 0.0-7.0 [facility] [place] Comment on above: Performed By: #### C BC, ADIFF, ANEU, ABOG, ANSG #### [address] [address] Lymphocytes (Bld) [#/Vol] 1.80 10 3/mcL Normal 0.77-3.85 [facility] [place] Comment on above: Performed By: #### C BC, ADIFF, ANEU, ABOG, ANSG #### [address] [address] Lymphocytes/100 WBC (Bld) 11.7 % Normal 10.0-50.0 [facility] [place] Comment on above: Performed By: #### C BC, ADIFF, ANEU, ABOG, ANSG #### [address] [address] Monocytes/100 WBC (Bld) 5.1 % Normal 1.7-13.0 A [facility] ([place]) Comment on above: Performed By: #### C BC, ADIFF, ANEU, ABOG, ANSG #### [address] [address] Neutrophils/100 WBC (Bld) 82.9 % High 37.0-80.0 [facility] [place] Comment on above: Performed By: #### C BC, ADIFF, ANEU, ABOG, ANSG #### [address] [address] .NEUABSon 06-16-2020 Neutrophils (Bld) [#/Vol] 12.40 10 3/mcL High 2.85-6.16 [facility] [place] Comment on above: Performed By: #### C BC, ADIFF, ANEU, ABOG, ANSG #### [place] [id number] AMNIon 06-16-2020 Amnisure Positive Normal Negative [facility] [place] Comment on above: Performed By: #### A MNI #### [place] [id number] CBCon 06-16-2020 Erythrocyte distribution width (RBC) [Ratio] 18.2 % High 11.5-14.5 [facility] [place] Comment on above: Performed By: #### C BC, ADIFF, ANEU, ABOG, ANSG #### [address] [address] Hematocrit (Bld) [Volume fraction] 35.8 % Low 37.0-47.0 [facility] [place] Comment on above: Performed By: #### C BC, ADIFF, ANEU, ABOG, ANSG #### [address] [address] Hemoglobin (Bld) [Mass/Vol] 11.7 G/dL Low 12.0-16.0 [facility] [place] Comment on above: Performed By: #### C BC, ADIFF, ANEU, ABOG, ANSG #### [address] [address] MCH (RBC) [Entitic mass] 28.2 pg Normal 27.0-31.2 [facility] [place] Comment on above: Performed By: #### C BC, ADIFF, ANEU, ABOG, ANSG #### [address] [address] MCHC (RBC) [Mass/Vol] 32.6 G/dL Low 33.0-37.0 [facility] ([place]) Comment on above: Performed By: #### C BC, ADIFF, ANEU, ABOG, ANSG #### [address] [address] MCV (RBC) [Entitic vol] 86.5 fL Normal 80.0-94.0 [facility] ([place]) Comment on above: Performed By: #### C BC, ADIFF, ANEU, ABOG, ANSG #### [address] [address] Platelet mean volume (Bld) [Entitic vol] 8.0 fL Normal 7.4-10.4 [facility] [place] Comment on above: Performed By: #### C BC, ADIFF, ANEU, ABOG, ANSG #### [address] [address] Platelets (Bld) [#/Vol] 197 10 3/mcL Normal 130-400 [facility] [place] Comment on above: Performed By: #### C BC, ADIFF, ANEU, ABOG, ANSG #### [address] [address] RBC (Bld) [#/Vol] 4.14 10 6/mcL Low 4.20-5.40 [facility] ([place]) Comment on above: Performed By: #### C BC, ADIFF, ANEU, ABOG, ANSG #### [address] [address] WBC (Bld) [#/Vol] 15.00 10 3/mcL High 4.60-10.80 [facility] ([place]) Comment on above: Performed By: #### C BC, ADIFF, ANEU, ABOG, ANSG #### [place] [address] [place], [place] [address] Gel ABOon 06-16-2020 ABO/Rh Interp Positive [facility] ([place] Comment on above: Performed By: #### C TASHA, ANURAG, ANEU, ABOG, ANSG #### [address] [place], [place] [address] Gel ABSon 06-16-2020 Antibody Screen Gel Negative Normal [facility] ([place]) Comment on above: Performed By: #### C TASHA, ANURAG, ANEU, ABOG, ANSG #### [address] [place], [place] [address] XR ABDOMEN APon 06-16-2020 XR ABDOMEN AP ORIGINAL XR ABDOMEN AP CLINICAL STATEMENT: NO INSTRUMENT OR NEEDLE COUNT. COMPARISON: None FINDINGS: Portable supine x-ray of abdomen and pelvis revealed no radiopaque foreign body. The bowel gas pattern is nonobstructive. IMPRESSION: No visible foreign body. Interpreted By: Arpit Aburto MD Preliminary Report By: Arpit Aburto MD Electronically Signed By: Arpit Aburto MD Dictated Date: 06/16/2020 7:05:07 AM Prelim Date: 06/16/2020 7:05:07 AM Sign Date: 06/16/2020 7:06:19 AM Ordering Provider:Chun [facility] ([place]) Culture, urine Bacteria identified Cx Nom (U) Positive [facility] Work Phone: Vital Signs Date Time Vital Sign Value Performing Clinician Ilsa ohara 03-14-2025 09:45-0400 Body height 154.94 cm No Primary Care Physician [facility] 03-14-2025 09:45-0400 Body mass index (BMI) [Ratio] 25.2 kg/m2 No Primary Care Physician [facility] 03-14-2025 09:45-0400 Body weight 60.58 kg No Primary Care Physician [facility] 03-14-2025 09:45-0400 Diastolic blood pressure 82 mm[Hg] No Primary Care Physician [facility] 03-14-2025 09:45-0400 Systolic blood pressure 104 mm[Hg] No Primary Care Physician [facility] 03-07-2025 09:22-0400 Body height 154.94 cm No Primary Care Physician [facility] 03-07-2025 09:22-0400 Body mass index (BMI) [Ratio] 25.1 kg/m2 No Primary Care Physician [facility] 03-07-2025 09:22-0400 Body weight 60.38 kg No Primary Care Physician [facility] 03-07-2025 09:22-0400 Diastolic blood pressure 64 mm[Hg] No Primary Care Physician [facility] 03-07-2025 09:22-0400 Systolic blood pressure 104 mm[Hg] No Primary Care Physician [facility] 02-21-2025 09:53-0400 Body height 154.94 cm No Primary Care Physician [facility] 02-21-2025 09:51-0400 Body mass index (BMI) [Ratio] 24.8 kg/m2 No Primary Care Physician [facility] 02-21-2025 09:51-0400 Body weight 59.67 kg No Primary Care Physician [facility] 02-21-2025 09:51-0400 Diastolic blood pressure 75 mm[Hg] No Primary Care Physician [facility] 02-21-2025 09:51-0400 Systolic blood pressure 121 mm[Hg] No Primary Care Physician [facility] 02-05-2025 09:33-0400 Body height 154.94 cm No Primary Care Physician [facility] 02-05-2025 09:31-0400 Body mass index (BMI) [Ratio] 24.2 kg/m2 No Primary Care Physician [facility] 02-05-2025 09:31-0400 Body weight 58.11 kg No Primary Care Physician [facility] 02-05-2025 09:31-0400 Diastolic blood pressure 71 mm[Hg] No Primary Care Physician [facility] 02-05-2025 09:31-0400 Systolic blood pressure 115 mm[Hg] No Primary Care Physician [facility] 01-23-2025 09:59-0400 Body height 154.94 cm No Primary Care Physician [facility] 01-23-2025 09:59-0400 Body mass index (BMI) [Ratio] 24 kg/m2 No Primary Care Physician [facility] 01-23-2025 09:59-0400 Body weight 57.66 kg No Primary Care Physician [facility] 01-23-2025 09:59-0400 Diastolic blood pressure 62 mm[Hg] No Primary Care Physician [facility] 01-23-2025 09:59-0400 Systolic blood pressure 100 mm[Hg] No Primary Care Physician [facility] 01-10-2025 15:34-0400 Body height 154.94 cm No Primary Care Physician [facility] 01-10-2025 15:34-0400 Body mass index (BMI) [Ratio] 24 kg/m2 No Primary Care Physician [facility] 01-10-2025 15:34-0400 Body weight 57.66 kg No Primary Care Physician [facility] 01-10-2025 15:34-0400 Diastolic blood pressure 68 mm[Hg] No Primary Care Physician [facility] 01-10-2025 15:34-0400 Systolic blood pressure 106 mm[Hg] No Primary Care Physician [facility] 12-07-2024 10:49-0400 Body mass index (BMI) [Ratio] 23.2 kg/m2 No Primary Care Physician [facility] 12-07-2024 10:49-0400 Body weight 55.79 kg No Primary Care Physician [facility] 12-07-2024 10:49-0400 Diastolic blood pressure 66 mm[Hg] No Primary Care Physician [facility] 12-07-2024 10:49-0400 Systolic blood pressure 104 mm[Hg] No Primary Care Physician [facility] 11-06-2024 09:49-0400 Body mass index (BMI) [Ratio] 21.6 kg/m2 No Primary Care Physician [facility] 11-06-2024 09:49-0400 Body weight 51.93 kg No Primary Care Physician [facility] 11-06-2024 09:49-0400 Diastolic blood pressure 80 mm[Hg] No Primary Care Physician [facility] 11-06-2024 09:49-0400 Systolic blood pressure 114 mm[Hg] No Primary Care Physician [facility] 10-12-2024 10:15-0400 Body mass index (BMI) [Ratio] 22.1 kg/m2 No Primary Care Physician [facility] 10-12-2024 10:15-0400 Body weight 53.18 kg No Primary Care Physician [facility] 10-12-2024 10:15-0400 Diastolic blood pressure 80 mm[Hg] No Primary Care Physician [facility] 10-12-2024 10:15-0400 Systolic blood pressure 118 mm[Hg] No Primary Care Physician [facility] 09-14-2024 10:31-0500 Body height 154.94 cm No Primary Care Physician [facility] 09-14-2024 10:29-0500 Body mass index (BMI) [Ratio] 21.9 kg/m2 No Primary Care Physician [facility] 09-14-2024 10:29-0500 Body weight 52.61 kg No Primary Care Physician [facility] 09-14-2024 10:29-0500 Diastolic blood pressure 72 mm[Hg] No Primary Care Physician [facility] 09-14-2024 10:29-0500 Systolic blood pressure 125 mm[Hg] No Primary Care Physician [facility] 09-18-2022 08:10-0500 Body temperature 98.1 [degF] No Primary Care Physician [facility] 09-18-2022 08:10-0500 Diastolic blood pressure 61 mm[Hg] No Primary Care Physician [facility] 09-18-2022 08:10-0500 Heart rate 80 /min No Primary Care Physician [facility] 09-18-2022 08:10-0500 Respiratory rate 16 /min No Primary Care Physician [facility] 09-18-2022 08:10-0500 SaO2% (BldA) [Mass fraction] 99 % No Primary Care Physician [facility] 09-18-2022 08:10-0500 Systolic blood pressure 109 mm[Hg] No Primary Care Physician [facility] 09-17-2022 05:27-0500 Body height 154.94 cm No Primary Care Physician [facility] 09-14-2022 10:54-0500 Body mass index (BMI) [Ratio] 25.5 kg/m2 No Primary Care Physician [facility] 09-14-2022 10:54-0500 Body weight 61.34 kg No Primary Care Physician [facility] 09-14-2022 10:54-0500 Diastolic blood pressure 84 mm[Hg] No Primary Care Physician [facility] 09-14-2022 10:54-0500 Systolic blood pressure 131 mm[Hg] No Primary Care Physician [facility] 09-09-2022 14:23-0500 Body mass index (BMI) [Ratio] 25.5 kg/m2 No Primary Care Physician [facility] 09-09-2022 14:23-0500 Body weight 61.34 kg No Primary Care Physician [facility] 09-09-2022 14:23-0500 Diastolic blood pressure 74 mm[Hg] No Primary Care Physician [facility] 09-09-2022 14:23-0500 Systolic blood pressure 129 mm[Hg] No Primary Care Physician [facility] 09-01-2022 10:31-0500 Body mass index (BMI) [Ratio] 25.5 kg/m2 No Primary Care Physician [facility] 09-01-2022 10:31-0500 Body weight 61.34 kg No Primary Care Physician [facility] 09-01-2022 10:31-0500 Diastolic blood pressure 73 mm[Hg] No Primary Care Physician [facility] 09-01-2022 10:31-0500 Systolic blood pressure 122 mm[Hg] No Primary Care Physician [facility] 08-26-2022 10:11-0500 Body mass index (BMI) [Ratio] 25.2 kg/m2 No Primary Care Physician [facility] 08-26-2022 10:11-0500 Body weight 60.55 kg No Primary Care Physician [facility] 08-26-2022 10:11-0500 Diastolic blood pressure 72 mm[Hg] No Primary Care Physician [facility] 08-26-2022 10:11-0500 Systolic blood pressure 118 mm[Hg] No Primary Care Physician [facility] 08-11-2022 11:43-0500 Body mass index (BMI) [Ratio] 25.5 kg/m2 No Primary Care Physician [facility] 08-11-2022 11:43-0500 Body weight 61.29 kg No Primary Care Physician [facility] 08-11-2022 11:43-0500 Diastolic blood pressure 75 mm[Hg] No Primary Care Physician [facility] 08-11-2022 11:43-0500 Systolic blood pressure 123 mm[Hg] No Primary Care Physician [facility] 07-20-2022 09:02-0500 Body mass index (BMI) [Ratio] 24.3 kg/m2 No Primary Care Physician [facility] 07-20-2022 09:02-0500 Body weight 58.51 kg No Primary Care Physician [facility] 07-20-2022 09:02-0500 Diastolic blood pressure 79 mm[Hg] No Primary Care Physician [facility] 07-20-2022 09:02-0500 Heart rate 112 /min No Primary Care Physician [facility] 07-20-2022 09:02-0500 Systolic blood pressure 123 mm[Hg] No Primary Care Physician [facility] 06-02-2022 14:22-0500 Body height 154.94 cm No Primary Care Physician [facility] Work Phone: 06-02-2022 14:19-0500 Body mass index (BMI) [Ratio] 23.3 kg/m2 No Primary Care Physician [facility] 06-02-2022 14:19-0500 Body weight 55.96 kg No Primary Care Physician [facility] 06-02-2022 14:19-0500 Diastolic blood pressure 74 mm[Hg] No Primary Care Physician [facility] 06-02-2022 14:19-0500 Systolic blood pressure 106 mm[Hg] No Primary Care Physician [facility] 05-13-2022 09:39-0400 Body mass index (BMI) [Ratio] 22.4 kg/m2 No Primary Care Physician [facility] Work Phone: 05-13-2022 09:39-0400 Body weight 53.97 kg No Primary Care Physician [facility] Work Phone: 05-13-2022 09:39-0400 Diastolic blood pressure 72 mm[Hg] No Primary Care Physician [facility] Work Phone: 05-13-2022 09:39-0400 Systolic blood pressure 92 mm[Hg] No Primary Care Physician [facility] Work Phone: 04-13-2022 11:38-0400 Body mass index (BMI) [Ratio] 21.7 kg/m2 No Primary Care Physician [facility] Work Phone: 04-13-2022 11:38-0400 Body weight 52.16 kg No Primary Care Physician [facility] Work Phone: 04-13-2022 11:38-0400 Diastolic blood pressure 80 mm[Hg] No Primary Care Physician [facility] Work Phone: 04-13-2022 11:38-0400 Systolic blood pressure 122 mm[Hg] No Primary Care Physician [facility] Work Phone: 04-07-2022 10:28-0400 Body height 157.5 cm Veronica Hernandez MD Work Phone: [facility] 04-07-2022 10:28-0400 Body temperature 99.9 [degF] Veronica Hernandez MD Work Phone: [facility] 04-07-2022 10:28-0400 Body weight 50.35 kg Veronica Hernandez MD Work Phone: [facility] 04-07-2022 10:28-0400 Diastolic blood pressure 64 mm[Hg] Veronica Hernandez MD Work Phone: [facility] 04-07-2022 10:28-0400 Heart rate 108 /min Veronica Hernandez MD Work Phone: [facility] 04-07-2022 10:28-0400 Respiratory rate 20 /min Veronica Hernandez MD Work Phone: [facility] 04-07-2022 10:28-0400 SaO2% (BldA) [Mass fraction] 100 % Veronica Hernandez MD Work Phone: [facility] 04-07-2022 10:28-0400 Systolic blood pressure 106 mm[Hg] Veronica Hernandez MD Work Phone: [facility] 03-10-2022 13:29-0400 Body height 154.94 cm No Primary Care Physician [facility] Work Phone: 03-10-2022 13:29-0400 Body mass index (BMI) [Ratio] 21.4 kg/m2 No Primary Care Physician [facility] Work Phone: 03-10-2022 13:29-0400 Body weight 51.42 kg No Primary Care Physician [facility] Work Phone: 03-10-2022 13:29-0400 Diastolic blood pressure 86 mm[Hg] No Primary Care Physician [facility] Work Phone: 03-10-2022 13:29-0400 Systolic blood pressure 132 mm[Hg] No Primary Care Physician [facility] Work Phone: Encounters Encounter Date Encounter Type Care Provider Facility Start: 03-14-2025 End: 03-14-2025 Patient encounter procedure Smiley VAZQUEZ -[facility] Work Phone: Start: 03-14-2025 End: 03-14-2025 ambulatory No Primary Care Physician Facility:[facility] [place] Start: 03-11-2025 End: 03-11-2025 ambulatory MOUNIKA TREVIÑO [facility] [place] Start: 03-07-2025 End: 03-07-2025 Patient encounter procedure Mounika PORTER -[facility] Work Phone: Start: 03-07-2025 End: 03-07-2025 ambulatory No Primary Care Physician -[facility] Start: 02-21-2025 End: 02-21-[address] Chichi Jimenez DO -[facility] Work Phone: Start: 02-21-2025 End: 02-21-2025 ambulatory No Primary Care Physician -[facility] Start: 02-05-2025 End: 02-05-[address] Tiki Dillon MD -[facility] Work Phone: Start: 02-05-2025 End: 02-05-2025 ambulatory No Primary Care Physician -[facility] Start: 01-23-2025 End: 01-23-2025 Patient encounter procedure Smiley VAZQUEZ -[facility] Work Phone: Start: 01-23-2025 End: 01-23-2025 ambulatory No Primary Care Physician -[facility] Start: 01-10-2025 End: 01-10-2025 Patient encounter procedure Smiley VAZQUEZ -[facility] Work Phone: Start: 01-10-2025 End: 01-10-2025 ambulatory No Primary Care Physician [facility] Work Phone: Start: 01-10-2025 End: 01-10-2025 ambulatory Chichi Jimenez Facility:[facility] Start: 12-15-2024 End: 12-15-2024 ambulatory KEV WHEAT MD Facility:A Start: 12-07-2024 End: 12-07-[address] Chichi Jimenez DO -[facility] Work Phone: Start: 12-07-2024 End: 12-07-2024 ambulatory No Primary Care Physician Facility:[facility] Start: 11-29-2024 End: 11-29-2024 ambulatory TIKI DILLON [facility] Start: 11-15-2024 End: 11-15-2024 ambulatory SMILEY CONTE [facility] Start: 11-06-2024 End: 11-06-[address] Tiki Dillon MD -[facility] Work Phone: Start: 11-06-2024 End: 11-06-2024 ambulatory No Primary Care Physician Facility:[facility] Start: 10-12-2024 End: 10-12-2024 Patient encounter procedure Smiley VAZQUEZ -[facility] Work Phone: Start: 10-12-2024 End: 10-12-2024 ambulatory No Primary Care Physician Facility:[facility] Start: 10-10-2024 End: 10-10-2024 ambulatory FRANNY ARELLANO MD Facility:[facility] Start: 09-14-2024 End: 09-14-2024 Patient encounter procedure Mounika Treviño CNM -[facility] Work Phone: Start: 09-14-2024 End: 09-14-2024 ambulatory No Primary Care Physician [facility] Work Phone: Start: 09-14-2024 End: 09-14-2024 ambulatory [facility] Facility:[facility] Start: 09-18-2022 Non-patient / Non-visit No Primary Care Physician [facility] Start: 09-17-2022 Non-patient / Non-visit No Primary Care Physician [facility] Start: 09-17-2022 End: 09-18-2022 Evaluation and management of inpatient No Primary Care Physician [facility] Start: 09-14-2022 End: 09-14-2022 Patient encounter procedure No Primary Care Physician [facility] Start: 09-09-2022 End: 09-09-2022 Patient encounter procedure No Primary Care Physician [facility] Start: 09-01-2022 End: 09-01-2022 Patient encounter procedure No Primary Care Physician [facility] Start: 08-26-2022 End: 08-26-2022 Patient encounter procedure No Primary Care Physician [facility]Laboratory, Specimen Start: 08-26-2022 End: 08-26-2022 Patient encounter procedure No Primary Care Physician [facility] Start: 08-11-2022 End: 08-11-2022 Patient encounter procedure No Primary Care Physician [facility] Start: 07-20-2022 End: 07-20-2022 Patient encounter procedure No Primary Care Physician [facility] @ Start: 06-02-2022 End: 06-02-2022 ambulatory No Primary Care Physician [facility] Work Phone: Start: 06-02-2022 End: 06-02-2022 Patient encounter procedure No Primary Care Physician [facility] Start: 05-13-2022 End: 05-13-2022 Patient encounter procedure No Primary Care Physician [facility] Start: 04-13-2022 End: 04-13-2022 Patient encounter procedure No Primary Care Physician [facility] Start: 04-07-2022 End: 04-07-2022 ambulatory VERONICA HERNANDEZ Facility:[facility] Start: 04-07-2022 End: 04-07-2022 Patient encounter procedure Veronica Hernandez MD Work Phone: Allergy [facility] Immunology [place] Comment on above: Flexural atopic derm atitis (Primary Dx) Start: 03-10-2022 End: 03-10-2022 ambulatory No Primary Care Physician [facility] Work Phone: Start: 03-10-2022 End: 03-10-2022 Patient encounter procedure No Primary Care Physician [facility], Specimen Start: 03-10-2022 End: 03-10-2022 Patient encounter procedure No Primary Care Physician [facility] Procedures Date Procedure Procedure Detail Performing Clinician Start: 01-10-2025 Serologic test for syphilis No Primary Care Physician Start: 09-14-2024 Urine culture No Primar Care Physician Start: 09-14-2024 Hepatitis C antibody measurement No Primary Care Physician Comment on above: Reactive: Presumptiv e evidence of antibodies to HCV. Follow CDC recommendations for supplemental testing.Non-Reactive: Antibodies to HCV were not detected; does not exclude the possibility of exposure to HCVReactive Results are presumptive evidence of antibodies to HCV. Follow CDC recommendations for supplemental testing.Order confirmation testing: HCV Quant by PCR testing - HCVPCR #[id number] Non Reactive: < 0.8 Equivocal: >/= 0.8 to < 1.0 Reactive: >/= 1.0The CDC requires that a reactive/equivocal HCV antibody result be sent out for confirmation. HCV Quant by PCR testing. Start: 09-14-2024 Rubella IgG measurement No Primary Care Physician Comment on above: Antibody Result: Int erpretationNon-Reactive: Non- ImmuneReactive: ImmuneThe following results were obtained with the [employer] Rubella IgG assay. Results from assays of other manufacturers cannot be used interchangeably. Group B Streptococcu s Culture No Primary Care Physician H/O: section History of section No Primary Care Physician Comment on above: desires TOLAC. 71% s uccess. cs due to FHT, never pushed. H/O: section Hx success ful (vaginal after ), currently No Primary Care Physician H/O: section Hx success ful (vaginal after ), currently Mounika Treviño CNRuby H/O: section Previous c esarean delivery affecting Dr. Tiki Dillon MD Comment on above: desires H/O: section Hx success ful (vaginal after ), currently Smiley Herrontings DISTRICT ADVISER-C H/O: section Hx success ful (vaginal after ), currently Dr. Chichi Jimenez DO H/O: section Hx success ful (vaginal after ), currently Smiley Herrontings DISTRICT ADVISER-C H/O: section Hx success ful (vaginal after ), currently Smiley Conte DISTRICT ADVISER-C H/O: section Hx success ful (vaginal after ), currently Dr. Tiki Dillon MD H/O: section Hx success ful (vaginal after ), currently Dr. Chichi Jimenez DO H/O: section Hx success ful (vaginal after ), currently Mounika Treviño CNM H/O: section Hx success ful (vaginal after ), currently Smiley Herrontings DISTRICT ADVISER-C Urine culture No Primary Car e Physician Plan of Treatment Date Care Activity Detail Author Start: 01-10-2025 CBC W Auto Differential panel - Blood [facility] Start: 01-10-2025 Measurement of glucose 2 hours after glucose challenge for glucose tolerance test [facility] Start: 01-10-2025 Serologic test for syphilis [facility] Start: 01-10-2025 [facility] Start: 09-18-2022 Patient discharge [facility] Start: 09-17-2022 Administration of medication [facility] Start: 09-17-2022 Application of ice collar, cap or bag [facility] Start: 09-17-2022 Catheterization of vein [facility] Start: 09-17-2022 Introduction of urinary catheter [facility] Start: 09-17-2022 Measuring intake and output [facility] Start: 09-17-2022 Notification of physician [facility] Start: 09-17-2022 Procedure discontinued [facility] Start: 09-17-2022 Provision of activity privileges [facility] Start: 09-17-2022 Vital signs measurements [facility] Start: 09-17-2022 [facility] Start: 09-17-2022 End: 09-17-2022 Admission procedure [facility] Start: 03-18-2022 Influenza vaccination INFLUENZA (#1) [facility] Start: 03-10-2022 Liquid based cervical cytology screening [facility] Work Phone: Start: 2018 PAP TESTING PAP TESTING [facility] Start: 2016 Urine microalbumin profile DTAP,TDAP,TD (1 - Tdap) [facility] Start: 12-28-2015 HEPATITIS C SCREENING HEPATITIS C SCREENING [facility] Start: 12-28-2015 HIV SCREENING HIV SCREENING [facility] Start: 12-28-2011 PEDS TO ADULT TRANSITION ANNUAL ASSESSMENT PEDS TO ADULT TRANSITION ANNUAL ASSESSMENT [facility] Start: 2009 Adult depression screening assessment DEPRESSION SCREENING [facility] Start: 2009 PEDS TO ADULT TRANSITION INITIAL DISCUSSION PEDS TO ADULT TRANSITION INITIAL DISCUSSION [facility] Start: 2008 HPV VACCINE (1 - 2-dose series) HPV VACCINE (1 - 2-dose series) [facility] Start: 12-28-2007 MENINGOCOCCAL B: Consider based on risk (1 of 2 - Risk Bexsero 2-dose series) MENINGOCOCCAL B: Consider based on risk (1 of 2 - Risk Bexsero 2-dose series) [facility] Start: 06-28-1998 COVID-19 VACCINE (#1) COVID-19 VACCINE (#1) [facility] Start: 1997 HEPATITIS B (1 of 3 - 3-dose series) HEPATITIS B (1 of 3 - 3-dose series) [facility] CBC W Auto Different ial panel - Blood [facility] Work Phone: Erythrocyte mean corpuscular volume determination [facility] Hematocrit [Volume Fraction] of Blood [facility] Hemoglobin [Mass/vol ume] in Blood [facility] Hepatitis B surface antigen measurement [facility] Work Phone: Hepatitis C antibody measurement [facility] Work Phone: HIV 1+2 Ab+HIV1 p24 Ag [Presence] in Serum or Plasma by Immunoassay [facility] Work Phone: Leukocytes [#/volume ] in Blood [facility] Mean corpuscular hemoglobin concentration determination [facility] Mean corpuscular hemoglobin determination [facility] Neutrophil count [facility] Neutrophil percent differential count [facility] Path report.final Dx Spec Wo [facility] Work Phone: Patient Education Breastfeed Hol ds : Caring for Yourself [facility] Work Phone: Patient referral [facility] Work Phone: Platelets [#/volume] in Blood [facility] Red blood cell count [facility] Red cell distributio n width determination [facility] Rubella IgG measurement [facility] Work Phone: Streptococcus agalac tiae [Presence] in Unspecified specimen by Organism specific culture [facility] Treponema sp Ab [Pre sence] in Serum [facility] Work Phone: Ultrasound scan for growth [facility] Payers Date Payer Category Payer Self-pay 2020 Medicaid [place] [employer] [place] [employer] [id number] 2020-Present [phone] [address] [place] [address] Medicaid [id number] 2020 Unknown [id number] 1997 Unknown [id number] 1997 Unknown [id number] 1997 Unknown [id number] 1997 Unknown [id number] [id number] 1997 Unknown [id number] Unknown [id number] Unknown [id number] [id number] Unknown [id number] [id number] Unknown [id number] [id number] Unknown [id number] [id number] Unknown [id number] [id number] Unknown [id number] [id number] Unknown [id number] [id number] Unknown [id number] Unknown [id number] [id number] Unknown [id number] [id number] Unknown [id number] Social History Date Type Detail Facility Start: 03-10-2022 End: 09-17-2022 Tobacco smoking status CAIS Unknown if ever smoked [facility] Start: 1995 Sex Assigned At Female [facility] Start: 04-07-2022 End: 08-24-2024 Tobacco smoking status CAIS Never smoked tobacco [facility] Start: 04-07-2022 Tobacco use and exposure Smokeless tobacco non-user [facility] Start: 04-07-2022 Alcohol intake Current drinke r of alcohol (finding) [facility] Start: 04-07-2022 History SDOH Alcohol Comment occ [facility] Start: 1995 Sex Assigned At Not on file C [facility] Start: 03-27-2022 End: 04-06-2022 Exposure to SARS-CoV-2 (event) Not sure [facility] Start: 09-27-2024 Sex Female (finding) [place] [facility] Goals Date Patient Goal Desired Activity /State Clinical Notes 03-10-2022 to 03-14-2025 Note Date & Type Note Facility 03-14-2025 Progress note [facility] 03-07-2025 Progress note [facility] 02-21-[address] [facility] [place] [facility] 01-23-2025 Progress note [facility] 12-07-2024 Evaluation note Diagnosis Onset Date Resolution Hx successful (vaginal after ), currently acute December 07, 2024 10:47am acute December 07, 2024 10:47am Previous delivery affecting acute December 07, 2024 10:47am Rubella non-immune status, antepartum acute December 07 10:47am Supervision of normal acute December 07, 2024 10:47am Hx successful (vaginal after ), currently acute January 10, 2025 3:32pm acute January 10 3:32pm Previous delivery affecting acute January 10, 2025 3:32pm Rubella non-immune status, antepartum acute January 10 3:32pm Supervision of normal acute January 10, 2025 3:32pm Hx successful (vaginal after ), currently acute January 23, 2025 9 :56am acute January 23, 2025 9:56am Previous delivery affecting acute January 23, 2025 9 :56am Rubella non-immune status, antepartum acute January 23 9:56am Supervision of normal acute January 23, 2025 9 :56am Hx successful (vaginal after ), currently acute February 05, 2025 9:26am acute February 05 9:26am Previous delivery affecting acute February 05, 2025 9:26am Rubella non-immune status, antepartum acute February 05 9:26am Supervision of normal acute February 05, 2025 9:26am Hx successful (vaginal after ), currently acute February 21, 2025 9:43am acute February 21 9:43am Previous delivery affecting acute February 21, 2025 9:43am Rubella non-immune status, antepartum acute February 21, 9:43am Small for gestational age due to malnutrition acute February 21, 2025 9:43am Supervision of normal acute February 21, 2025 9:43am Hx successful (vaginal after ), currently acute March 07 9:19am acute March 07 9:19am Previous delivery affecting acute March 07 9:19am Rubella non-immune status, antepartum acute March 07, 2025 9:19am Small for gestational age due to malnutrition acute March 07 9:19am Supervision of normal acute March 07 9:19am [facility] [place] [place] [facility] Work Phone: 1(365) 150-450605-23-2025 Evaluation note* Diagnosis Onset Date Resolution Status Admit Date Hx successful (vaginal after ), currently acute December 07 10:47am acute December 07, 2024 10:47am Previous delivery affecting acute December 07 10:47am Rubella non-immune status, antepartum acute December 07, 2024 1 0:47am Supervision of normal acut e December 07, 2024 10:47am Hx successful (vaginal after ), currently acute January 10 3:32pm acute January 10 3:32pm Previous delivery affecting acute January 10 025 3:32pm Rubella non-immune status, antepartum acute January 10, 2025 3:32pm Supervision of normal acut e January 10, 2025 3:32pm Hx successful (vaginal after ), currently acute January 23 9:56am acute January 23, 2025 9:56am Previous delivery affecting acute January 23 9:56am Rubella non-immune status, antepartum acute January 23, 2025 9 :56am Supervision of normal acut e January 23, 2025 9:56am Hx successful (vaginal after ), currently acute February 05 9:26am acute February 05 9:26am Previous delivery affecting acute February 05 9:26am Rubella non-immune status, antepartum acute February 05, 2025 9:26am Supervision of normal acut e February 05, 2025 9:26am Hx successful (vaginal after ), currently acute February 21 9:43am acute February 21 9:43am Previous delivery affecting acute February 21, 2025 9:43am Rubella non-immune status, antepartum acute February 21, 2025 9:43am Small for gestational age du e to malnutrition acute February 9:43am Supervision of normal acut e February 21, 2025 9:43am Hx successful (vaginal after ), currently acute March 07, 2025 9:19am acute March 07 025 9:19am Previous delivery affecting acute March 07, 2025 9:19am Rubella non-immune status, antepartum acute March 07 9:19am Small for gestational age du e to malnutrition acute February 9:19am Supervision of normal acut e March 07, 2025 9:19am Hx successful (vaginal after ), currently acute March 14, 2025 9:42am acute March 14 025 9:42am Previous delivery affecting acute March 14, 2025 9:42am Rubella non-immune status, antepartum acute March 14 9:42am Small for gestational age du e to malnutrition acute February 9:42am Supervision of normal acut e March 14, 2025 9:42am [facility] [place] [place] [facility] Work Phone: 1(913) 548-387504-22-2025 Evaluation note* Diagnosis Onset Date Resolution Status Admit Date Hx successful (vaginal after ), currently acute November 06, 2024 9:43am acute November 06 9:43am Previous delivery affecting acute November 06, 2024 9:43am Rubella non-immune status, antepartum acute November 06, 2024 9:43am Supervision of normal acut e November 06, 2024 9:43am Hx successful (vaginal after ), currently acute December 07, 2024 1 0:47am acute December 07, 2024 10:47am Previous delivery affecting acute December 07 10:47am Rubella non-immune status, antepartum acute December 07, 2024 1 0:47am Supervision of normal acut e December 07, 2024 10:47am Hx successful (vaginal after ), currently acute January 10, 2025 3:32pm acute January 10 3:32pm Previous delivery affecting acute January 10 025 3:32pm Rubella non-immune status, antepartum acute January 10, 2025 3:32pm Supervision of normal acut e January 10, 2025 3:32pm Hx successful (vaginal after ), currently acute January 23, 2025 9 :56am acute January 23, 2025 9:56am Previous delivery affecting acute January 23 9:56am Rubella non-immune status, antepartum acute January 23, 2025 9 :56am Supervision of normal acut e January 23, 2025 9:56am Hx successful (vaginal after ), currently acute February 05, 2025 9:26am acute February 05 9:26am Previous delivery affecting acute February 05, 025 9:26am Rubella non-immune status, antepartum acute February 05, 2025 9:26am Supervision of normal acut e February 05, 2025 9:26am Hx successful (vaginal after ), currently acute February 21, 2025 9:43am acute February 21 9:43am Previous delivery affecting acute February 21, 2025 9:43am Rubella non-immune status, antepartum acute February 21, 2025 9:43am Small for gestational age du e to malnutrition acute February 21 025 9:43am Supervision of normal acut e February 21, 2025 9:43am [facility] Work Phone: 1(651) 273-951703-28-2025 Evaluation note* Diagnosis Onset Date Resolution Status Admit Date Hx successful (vaginal after ), currently acute October 12 025 10:11am acute October 12 10:11am Rubella non-immune status, antepartum acute October 12, 2024 10:11am Supervision of normal acut e October 12, 2024 10:11am Hx successful (vaginal after ), currently acute November 06 9:43am acute November 06 9:43am Previous delivery affecting acute November 06, 2024 9:43am Rubella non-immune status, antepartum acute November 06, 2024 9:43am Supervision of normal acut e November 06, 2024 9:43am Hx successful (vaginal after ), currently acute December 07 10:47am acute December 07, 2024 10:47am Previous delivery affecting acute December 07 10:47am Rubella non-immune status, antepartum acute December 07, 2024 1 0:47am Supervision of normal acut e December 07, 2024 10:47am Hx successful (vaginal after ), currently acute January 10 3:32pm acute January 10 3:32pm Previous delivery affecting acute January 10 3:32pm Rubella non-immune status, antepartum acute January 10, 2025 3:32pm Supervision of normal acut e January 10, 2025 3:32pm [facility] Work Phone: 1(609) 727-270203-28-2025 Evaluation note* Diagnosis Onset Date Resolution Status Admit Date Hx successful (vaginal after ), currently acute October 12, 025 10:11am acute October 12 10:11am Rubella non-immune status, antepartum acute October 12, 2024 10:11am Supervision of normal acut e October 12, 2024 10:11am Hx successful (vaginal after ), currently acute November 06 025 9:43am acute November 06 9:43am Previous delivery affecting acute November 06, 2024 9:43am Rubella non-immune status, antepartum acute November 06, 2024 9:43am Supervision of normal acut e November 06, 2024 9:43am Hx successful (vaginal after ), currently acute December 07 10:47am acute December 07, 2024 10:47am Previous delivery affecting acute December 07 10:47am Rubella non-immune status, antepartum acute December 07, 2024 1 0:47am Supervision of normal acut e December 07, 2024 10:47am Hx successful (vaginal after ), currently acute January 10 3:32pm acute January 10 3:32pm Previous delivery affecting acute January 10 3:32pm Rubella non-immune status, antepartum acute January 10, 2025 3:32pm Supervision of normal acut e January 10, 2025 3:32pm Hx successful (vaginal after ), currently acute January 23 9:56am acute January 23, 2025 9:56am Previous delivery affecting acute January 23 9:56am Rubella non-immune status, antepartum acute January 23, 2025 9 :56am Supervision of normal acut e January 23, 2025 9:56am [facility] [place] [place] [facility] Work Phone: 1([phone]) 895-504003-28-2025 Evaluation note* Diagnosis Onset Date Resolution Status Admit Date Hx successful (vaginal after ), currently acute October 12 10:11am acute October 12 10:11am Rubella non-immune status, antepartum acute October 12, 2024 10:11am Supervision of normal acut e October 12, 2024 10:11am Hx successful (vaginal after ), currently acute November 06 9:43am acute November 06 9:43am Previous delivery affecting acute November 06, 2024 9:43am Rubella non-immune status, antepartum acute November 06, 2024 9:43am Supervision of normal acut e November 06, 2024 9:43am Hx successful (vaginal after ), currently acute December 07 10:47am acute December 07, 2024 10:47am Previous delivery affecting acute December 07 10:47am Rubella non-immune status, antepartum acute December 07, 2024 1 0:47am Supervision of normal acut e December 07, 2024 10:47am Hx successful (vaginal after ), currently acute January 10 3:32pm acute January 10 3:32pm Previous delivery affecting acute January 10 3:32pm Rubella non-immune status, antepartum acute January 10, 2025 3:32pm Supervision of normal acut e January 10, 2025 3:32pm Hx successful (vaginal after ), currently acute January 23 9:56am acute January 23, 2025 9:56am Previous delivery affecting acute January 23 9:56am Rubella non-immune status, antepartum acute January 23, 2025 9 :56am Supervision of normal acut e January 23, 2025 9:56am Hx successful (vaginal after ), currently acute February 05 9:26am acute February 05 9:26am Previous delivery affecting acute February 05, 025 9:26am Rubella non-immune status, antepartum acute February 05, 2025 9:26am Supervision of normal acut e February 05, 2025 9:26am [facility] Work Phone: 1([phone] 275-602502-28-2025 Evaluation note* Diagnosis Onset Date Resolution Status Admit Date Hx successful (vaginal after ), currently acute August 10:42am acute September 14, 2024 10:42am Supervision of normal acute September 14, 025 10:42am [facility] Work Phone: 1([phone]) 264-222702-28-2025 Evaluation note* Diagnosis Onset Date Resolution Status Admit Date Hx successful (vaginal after ), currently acute August 10:42am acute September 14, 2024 10:42am Supervision of normal acute September 14 10:42am Hx successful (vaginal after ), currently acute October 12 10:11am acute October 12 10:11am Rubella non-immune status, antepartum acute October 12, 2024 10:11am Supervision of normal acute October 12, 2024 10:11am Hx successful (vaginal after ), currently acute November 06 9:43am acute November 06 9:43am Previous delivery affecting acute November 06, 2024 9:43am Rubella non-immune status, antepartum acute November 06, 2024 9:43am Supervision of normal acute November 06, 2024 9:43am Hx successful (vaginal after ), currently acute December 07 10:47am acute December 07, 2024 10:47am Previous delivery affecting acute December 07 10:47am Rubella non-immune status, antepartum acute December 07, 2024 1 0:47am Supervision of normal acute December 07, 2024 1 0:47am Hx successful (vaginal after ), currently acute January 10 3:32pm acute January 10 3:32pm Previous delivery affecting acute January 10 3:32pm Rubella non-immune status, antepartum acute January 10, 2025 3:32pm Supervision of normal acute January 10, 2025 3:32pm [facility] Work Phone: 1(361) 382-929003-03-[address] Dillon [facility] September 17, 2022 5:40am Note Date/Time September 17, 2022 5:40 am [facility] Medical Records Department [facility] [place] [address] Instructions for Home/Discharge Instructions 09/17/22 0540 MR#: [id number] Acct: [id number] Name: MAREK KEYES Rep #:[id number] : 1995 26 From: Tiki koehler MD PCP: Bony Physician,No Primary Status :ADM IN Discharge Instructions Diet Discharge Diet: No restrictions Activity Discharge Activity: Return to Normal Activity, May Drive, May Shower and May Take a Tub Bath (in 4 weeks) May resume sexual activity in: 6-8 weeks (after seen by OB provider) Weight Bearing Status: Full weight bearing Lifting Restrictions: none Dressing / Incision Call your doctor if you observe: Fever of 101 or Higher, Inability to urinate, Using more than 1 pad per hour (for more than 2 hours in a row or more), Shortness of breath, Dizziness, Chest pain and - (headache not controlled with tylenol, change in vision) Follow Up Care When: in 6 weeks for visit, call the office to make the appointment. If you had elevated blood pressures call the office to be seen within 1 week. Test Results: Test results from this visit will be discussed in further detail at your follow- up appointment, if applicable. Discharge Plan Admission Admit Date/Time: 09/17/22 04:45 Attending Provider: Tiki Dillon Primary Care Provider: Bony Physician,No Primary Discharge Orders/Prescriptions Prescriptions: No Action PNV-DHA 27 mg iron-1 mg -300 mg capsule PO Referrals / Follow Up: Bony Physician,No Primary [Primary Care Provider] - 09/17/22 0540<Electronically signed by Tiki Dillon MD>Tiki Dillon MD CC: No Primary Care Physician ~ Signed [facility] Work Phone: 1(898) 268-356303-03-2023 History and physical note Author Dr. Dillon [facility] September 17, 2022 5:38am Note Date/Time September 17, 2022 5:37 am [facility] Medical Records Department [address] [place] [address] [place] [address] History & Physical Exam 09/17/22 0536 MR#: [id number] Acct: [id number] Name: MAREK KEYES Rep #:[id number] : 1995 26 From: Tiki koehler MD PCP: Bony Physician,No Primary Status :ADM IN [facility] and Physical HPI - General HPI Narrative MAREK KEYES, is a 26 F who presents IAL 10 cm dilated and delivere precipitously Maternal Data Information MILENA Calculator ? Estimated Delivery Date Method Current WG Current Estimate 09/22/22 LMP (Certain) 39w 2d PFSH PFSH Home Medications multivitamin no.47-iron fum 27 mg-folate no.1? 1 mg-dha 300 mg capsule (PNV-DHA) cap PO 03/03/22 [History Last Taken Unknown] Allergy/AdvReac Type Severity Reaction Status Date / Time No Known Allergies Allergy ? ? Verified 09/14/22 10:55 Social History? adopted:? No household members:? spouse and children housing:? house number of children:? 1 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 status:? 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 No pets and animals:? No history of recent travel:? Yes (December) out of state: Yes out of country:No sexually active:? Yes Smoking Status:? Never smoker second hand exposure:? No alcohol intake:? former details:? social occasions substance use type:? does not use diet:? gluten free and lactose free well-balanced diet:? daily or most days caffeine:? No eating out:? 1-3 times/week during the past year weight has:? remained stable what type of physical activity do you participate in:? walking frequency:? 3-4 times per week duration:? 45-60 minutes/day dustin/bahai:? Moravian seatbelt use:? always do you feel safe at home:? Yes additional social history:? Spouse - Raciel History ? ? ? 2 ? Elective abortions ? Hx Para ? ? ? 1 ? Spontaneous abortions ? Hx # Term Pregnancies ? Ectopic pregnancies ? Hx # Pregnancies ? Multiple births ? # of living children ? ? ? 1 Past Pregnancies Del. Date Name GA/Weeks Outcome Route Bth Weight Gen Labor Lgth Anesthesia Del Locatn Provider FOB Unknown 06/16/20 [place] 40 live - full term 7# 15 oz Mal e [address] [facility] [address] Bert Schrader Delivery Date:?? Last Updated by: Hannah Strickland ? ? ? Emergency csection due to decels during pushing Visit Details Expected Delivery Route/Plan Labor Preferences- wants to . patient counseled regarding risks/benefits of trial of labor versus repeat .? ACOG/uptodate education given to patient.? 71% likelihood of success per calculator TOLAC consent form signed: [] CB/BF classes: no labor support person: Raciel labor intervention preferences: [] pain management options preferred: epidural cut cord/dad catch: yes : plans PP control planned: discussed and declines discussed possible routes of delivery and associated risks: [] special requests: [] Plans Covid status: discussed Flu vaccine: discussed Tdap vaccine:discussed and declines Rhogam: n/a LARC form signed:completed Problem list reviewed and updated with the most current plan of care details and appropriate orders placed.? Relevant counseling for the gestational age provided. Continue routine care and follow up unless otherwise noted in visit notes/problem list details OB Flowsheet Initial Weight:?Not Recorded Date -?-?-?-?-?-?-?-?-?-?-?-?- EGA Weight BP Urine Prot -?-?-?-?-?-?-?-?-?-?-?-?- Glucose FHR FuHt Pres Dilation -?-?-?-?-?-?-?-?-?-?-?-?- Effaced St Visit Note 03/10/22-?-?-?-?-?-?-?-?-?-?-?-?- 12w 0d 113 lb 6 oz 132/86 -?-?-?-?-?-?-?-?-?-?-?-?- ? 160 ? ? -?-?-?-?-?-?-?-?-?-?-?-?- ? ? JV- CRL consistent with LMP. deciding on genetic testing. pt lives in [place], will likely do PNL next visit. 04/13/22-?-?-?-?-?-?-?-?-?-?-?-?- 16w 6d 115 lb 122/80 Negative -?-?-?-?-?-?-?-?-?-?-?-?- Negative 135 ? ? -?-?-?-?-?-?-?-?-?-?-?-?- ? ? SM- no vb cramping doing well, discussed TOLAC. SM- no vb cramping doing well, discussed TOLAC. will get labs drawn next visit 05/13/22-?-?-?-?-?-?-?-?-?-?-?-?- 21w 1d 119 lb 92/72 Negative -?-?-?-?-?-?-?-?-?-?-?-?- Negative 150 21 ? -?-?-?-?-?-?-?-?-?-?-?-?- ? ? SM- no vb lof good fm no regular ctx SM- no vb lof good fm no regular ctx, didn't get labs drawn yet will do next time ordered GCT. reviewed anatomy results 06/02/22-?-?-?-?-?-?-?-?-?-?-?-?- 24w 0d 123 lb 6 oz 106/74 Negative -?-?-?-?-?-?-?-?-?-?-?-?- Negative 145 23 ? -?-?-?-?-?-?-?-?-?-?-?-?- ? ? LC- no vb,ctx,lof. good fm. rec'd NOB labs today with GCT. 07/20/22-?-?-?-?-?-?-?-?-?-?-?-?- 30w 6d 129 lb 123/79 Positive -?-?-?-?-?-?-?-?-?-?-?-?- Negative 140 30 ? -?-?-?-?-?-?-?-?-?-?-?-?- ? ? LC- no vb/ctx/lof. good fm. denies concerns.28 week labs normal. larc signed, declines tdap. 08/11/22-?-?-?-?-?-?-?-?-?-?-?-?- 34w 0d 135 lb 2 oz 123/75 Negative -?-?-?-?-?-?-?-?-?-?-?-?- Negative 145 32 ? -?-?-?-?-?-?-?-?-?-?-?-?- ? ? JV- no lof, vaginal bleeding,or dec fm. consider growth scan if still measuring small next visit. larc signed. will need to sign consent signed. 08/26/22-?-?-?-?-?-?-?-?-?-?-?-?- 36w 1d 133 lb 8 oz 118/72 Negative -?-?-?-?-?-?-?-?-?-?-?-?- Negative 138 35 Cephalic 0-?-?-?-?-?-?-?-?-?- ?-?-?- ? -4 MH-No Vb, LOF. Good FM. No CTX.? GBS done 08/26/22-?-?-?-?-?-?-?-?-?-?-?-?- 36w 1d ? ? -?-?-?-?-?-?-?-?-?-?-?-?- ? -?-?-?-?-?-?-?-?-?-?-?-?- ? ? ? 09/01/22-?-?-?-?-?-?-?-?-?-?-?-?- 37w 0d 135 lb 4 oz 122/73 -?-?-?-?-?-?-?-?-?-?-?-?- ? 140 37 ? -?-?-?-?-?-?-?-?-?-?-?-?- ? ? LC- no concerns. good fm. no ctx/lof/vb. gbs negative. 09/09/22-?-?-?-?-?-?-?-?-?-?-?-?- 38w 1d 135 lb 4 oz 129/74 Negative -?-?-?-?-?-?-?-?-?-?-?-?- Negative 145 36 Cephalic -?-?-?-?-?-?-?-?-?-?-?-?- ? ? JV- patient declines cx exam today. no lof ,vaginal bleeding, or dec fm. consider growth scan next week if still small for gestational age. or at least an RUTH ANN. discussed and talked about possible rpt if no dilation by 41 weeks. 09/14/22-?-?-?-?-?-?-?-?-?-?-?-?- 38w 6d 135 lb 4 oz 131/84 Negative -?-?-?-?-?-?-?-?-?-?-?-?- Negative 140 39 Cephalic -?-?-?-?-?-?-?-?-?-?-?-?- ? ? SM- discussion of exp mgt vs IOL or RLTCS.? discussed possible IOL if favorbale remy score by 41 weeks if no spontaneous labor. NST FHR Rate Baby A Baseline: 140 Variability:: Moderate Decelerations:: None NST Reactive:: Yes Uterine Activity:: q3-5 ROS Constitutional Constitutional: Reports systems reviewed and no addt'l complaints, except as documented ENT HEENT: Reports systems reviewed and no addt'l complaints, except as documented Cardiovascular Cardiovascular: Reports systems reviewed and no addt'l complaints, except as documented Respiratory/Chest Respiratory/Chest: Reports systems reviewed and no addt'l complaints, except as documented Gastrointestinal Gastrointestinal: Reports systems reviewed and no addt'l complaints, except as documented and nausea; Denies abdominal pain Genitourinary Genitourinary: Reports systems reviewed and no addt'l complaints, except as documented, contractions Details: present and frequency (regular ) and movement Details: present Musculoskeletal Musculoskeletal: Reports systems reviewed and no addt'l complaints, except as documented Integumentary Integumentary: Reports as per HPI Neurologic Neurologic: Reports systems reviewed and no addt'l complaints, except as documented Endocrine Endocrinology: Reports systems reviewed and no addt'l complaints, except as documented Physical Exam Const alert, oriented x3 and healthy appearing Constitutional Narrative: uncomfortable with contractions HEENT normocephalic and moist oral mucous membranes Head and Scalp: atraumatic Neck full ROM, no lymphadenopathy, supple and thyroid normal General: trachea midline Thyroid: thyroid normal Lymph Lymphatic: no lymphadenopathy noted Chest inspection of chest normal Resp normal respiratory effort Cardio regular rate GI normal to inspection, nondistended, normoactive bowel sounds, soft to palpation and non-tender Inspection: gravid external exam normal Bimanual Exam - Vag & Uterus: uterus non-tender Manual OB Exam: estimated gestational size appropriate, presentation cephalic, dilated, effaced and station Extremity normal to inspection General Extremity: Negative for edema Skin no rashes or lesions noted Neuro deep tendon reflexes 2+ bilaterally Motor Exam: strength 5/5 throughout and clonus absent Psych mental status grossly normal Labs Labs Labs: ?? ? Blood Type A POSITIVE ?? ? Antibody Screen NEGATIVE ?? ? Hct 35.4 % (37-47)? L ?? ? Hgb 11.1 g/dL (12.0-15.0)? L ?? ? Syphilis Total Ab Non-reactive ?? ? Rubella IgG Antibody Non-Reactive? (Nonreactive) ?? ? Hep Bs Antigen Non-Reactive? (Nonreactive) ?? ? Chlamydia DNA (MAXIMILIANO) Negative? (Negative) ?? ? Neisseria gonorrhoeae DNA (MAXIMILIANO) Negative? (Negative) ?? ? HIV 1&2 Antibody Non-Reactive? (Nonreactive) ?? ? Glucose 1 Hr 50 gm 125 mg/dL (70-140) Assessment & Plan (1) Rubella non-immune status, antepartum: COMMENT: ? ? ? MMR pp (2) History of section: COMMENT: ? ? ? desires TOLAC. 71% success. cs due to FHT, never pushed. (3) Supervision of normal : COMMENT: ? ? ? [id number], MILENA 09/22/21 girl PC [place], Spouse Raciel (4) : QUALIFIERS: ?Weeks of gestation:?38 weeks? Qualified Code(s):?Z3A.38 - 38 weeks gestation of COMMENT: ? ? ? Neg GBS. nl anatomy, declined NIPT & Carrier testing, ntd screen. (5) Vaginal after : COMMENT: ? ? ? SM 40 girl Taylor PLAN: admit IAL 09/17/22 0538 <Electronically signed by Tiki Dillon MD> Cosigner Signature (if applicable): CC: Dr. Tiki Dillon MD; No Primary Care Physician~ Signed [facility] Work Phone: 1(161) 550-213603-03-2023 Procedure [facility] 04-07-2022 NoteHNO ID: [id number] Author: Veronica Hernandez MD Service: ? Author Type: Physician Type: Progress Notes Filed: 04/07/2022 11:30 AM Note Text: [facility] ALLERGY AND IMMUNOLOGY NEW PATIENT VISIT Patient Name: Marek Keyes PRIMARY CARE PHYSICIAN: No primary care provider on file. REASON FOR CONSULT: Eczema REQUESTING PHYSICIAN: Self My final recommendations will be communicated to the requesting health care provider by way of the shared medical record for internal providers or letter via the [employer] for external providers. CHIEF COMPLAINT: Patient presents with: Rash HISTORY OF PRESENT ILLNESS: Marek Keyes is a 26 year old female who presents with atopic dermatitis: Eczema: Diagnosed with eczema in childhood. Typically occurs on arms and face. Triggers for eczema include (she is currently ), but between pregnancies she would still have flare-ups. She would like to know the cause of her symptoms Moisturizes about once per day- she uses Lubiderm. Currently bathing/showering 7 times per week. Uses hot water, soaps- Olay Eczema Prone (fragrance free) The following medications have been used for eczema: topical cream (unsure of name)- only works temporarily- wants to avoid use of medications Itching is poorly controlled at night. She has not tried any medications She took an Everlywell test that was positive to tomato- she tried eliminating tomato with no improvement in symptoms. She has also tried eliminating dairy and gluten with no significant improvement. 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 No systemic rxn to stinging insects. No known hx of latex glove reactions. History reviewed. No pertinent past medical history. There is no problem list on file for this patient. PAST SURGICAL HISTORY Procedure Laterality Date SECTION HX 2020 History reviewed. No pertinent family history. Social History Tobacco Use Smoking status: Never Smokeless tobacco: Never Substance Use Topics Alcohol use: Yes Comment: occ ALLERGIES: ALLERGIES Not on File CURRENT OUTPATIENT MEDICATIONS: valacyclovir HCl (VALTREX ORAL) Take by mouth as needed. REVIEW OF SYSTEMS: HEENT: negative RESPIRATORY: No cough, hemoptysis, recent chest infection, wheezing CONSTITUTIONAL: No acute distress. No weight loss or gain, no fevers or chills CARDIOVASCULAR: negative for chest pain, leg swelling or palpitations. GASTROINTESTINAL: Negative for abdominal discomfort, No blood in stools or black stools MUSCULOSKELETAL: negative for joint pain or swelling, back pain or muscle pain. NEUROLOGIC:Negative for focal numbness or weakness, headaches and dizziness or syncope. DERM/SKIN: as per HPI PSYCHIATRIC: Negative for sleep disturbance, mood disorder and recent psychosocial stressors HEMATOLOGIC/LYMPHATIC/IMMUNOLOGIC:Negative for cold or heat intolerance, polyuria, polydipsia and goiter. PHYSICAL EXAM: BP 106/64 Pulse 108 Temp (Src) 99.9[double checked[ (Temporal Artery) Resp 20 Ht 5' 2 (1.58m) Wt 111 lb (50.3kg) SpO2 100% BMI 20.30 kg/(m2). General appearance: Well appearing, alert, in no acute distress, well-hydrated, well nourished. HENT: External ears normal, canals clear, TM's normal Eyes: no scleral icterus, PERRLA, EOMS, no conjunctivitis Respiratory: Lungs clear to auscultation. No wheezing, rhonchi, rales Cardiovascular: RRR without murmur, gallop, or rubs. No ectopy Gastroenterology: normal appearing abdomen on inspection Musculoskeletal: No joint pain, muscle weakness, or impaired gait Integumentary: Areas of erythema and xerosis on face and flexural surface of arms Psychiatric: Alert and oriented x 3. No mood disorders noted, calm affect. DATA: No data available Assessment/Recommendations: Flexural atopic dermatitis (primary encounter diagnosis) Comment: Discussed pathophysiology and stepwise treatment modalities for moderate eczema. As she is she is trying to limit any use of pharmacologic agents. Discussed that first-line therapy for eczema is aggressive use of emollients and moisturizers. Discussed preferred products and the best ways to lock in moisture particularly after showers. On her face and arms would advise use of Vaseline as a barrier. Discussed the role of food and atopic dermatitis, based on her history and absence of consistent triggers, advised not to eliminate any food groups particularly during her . Advised if she was concerned about food she can keep a food diary to see if she notices any trends. She inquired about food sensitivity testing, discussed that these are not FDA a (more content not included)...[facility]09-21-2022 Instructions* Patient Instructions* Veronica Hernandez MD - 04/07/2022 11:07 AM EDT - Start Hydrocortisone 2.5% ointment twice daily as needed on face, use for at least 3 days after resolution of symptoms. Do not use for more than 14 consecutive days - Start Triamcinolone 0.1% ointment twice daily as needed on body lesions (do not use on face, arm pits), use for at least 3 days after resolution of symptoms. Do not use for more than 14 consecutivedays Eczema general info: What is eczema? Eczema, also known as atopic dermatitis, is a chronic inflammatory condition of the epidermal (outermost) layer of the skin. It is characterized by itching, redness, swelling, dryness, crusting, cracking, oozing, bleeding and, occasionally, infection. Permanent scarring is rare. Eczema tends to primarily affect the flexoral aspect of joints and is known as the itch that rashes because itching often precedes the onset of the rash. Atopic dermatitis often runs in families whose members later develop allergic rhinitis and/or asthma. What are eczema triggers? The triggers are multiple and include such things as heat, sweating, and emotional stress. Irritants such as wool, soaps, and detergents also contribute. Allergens, whether environmental or food, canbe a factor, but this is not always the case. Less than one-third of children with atopic dermatitis have underlying food allergies. Unlike urticaria, eczema is not commonly associated with an acute reaction to a food. How is eczema treated? The main objective of treatment is to break the itch-scratch cycle. This can be accomplished by oneor a combination of the following modalities: Dry skin care recommendations: -Bath time Always use lukewarm water when possible. Avoid very hot or cold water. Avoid saunas and steam baths. Keep bathing time SHORT, ideally 10-15 minutes. Do NOT use bubble bath. Use a mild soap (unscented Dove or Dove Sensitive skin bar, Basis, Oilatum Cleansing bar, or Cetaphil Gentle Cleansing bar) and use just enough to wash the dirty areas. Note: We recommend bar soaps (examples above). But if you like liquid soap, try: Cetaphil Gentle Skin Cleanser, Cetaphil Restoraderm Skin Restoring Body Wash, CeraVe Hydrating Cleanser, Dove Sensitive Skin Nourishing Body Wash (unscented), Aquanil Cleanser The following shampoos are recommended: Aquaphor Baby Gentle Wash & Shampoo, DHS Zinc Shampoo, DHS Clear Shampoo, Free & Clear Shampoo Do NOT vigorously scrub when you cleanse the skin. After bathing, PAT your skin lightly with a towel. Do not rub or scrub the skin. -Moisturizers & Prescriptions Apply moisturizers immediately after bathing (within 3 minutes). This helps to lock-in moisture. Use the moisturizer several times a day over the whole body. Good summer moisturizers include: Aveeno and Cetaphil lotions. Winter moisturizers should be stronger and include: Aquaphor, Vaseline, and Eucerin, Cetaphil, and CeraVe creams. Here are some full names of moisturizers: CeraVe Moisturizing Cream, Cetaphil Moisturizing Cream,Eucerin Original Soothing Repair Cream, Vanicream Moisturizing Skin Cream, CeraVe Moisturizing Lotion, Cetaphil Moisturizing Lotion, Cetaphil Restoraderm Skin Moisturizer, Eucerin Soothing Repair Lotion, Lubriderm Moisture Lotion for Sensitive Skin, Nutraderm Advanced Formula Therapeutic Lotion, Aquaphor Healing Ointment, Vaseline (brand name or generic petrolatum). If you have prescription creams given to you by the doctor, be sure to apply them only to the affected areas and apply them 15-30 minutes BEFORE you apply any moisturizer. In fact, it is best to apply prescription creams and moisturizers at different times of the day. -Laundry & Clothing Avoid laundry products with added color or perfumes. Instead, use unscented hypo-allergenic laundryproducts such as Tide Free, Cheer Free & Gentle, Purex Free & Clear, and All Free & Clear. If the skin still seems dry or sensitive, you can try double-rinsing the clothes. Avoid tight or scratchy clothing such as wool. 4. Avoid fragrances; no perfumes, no lysol, no febreze, no scented candles. [facility] of Present illness Narrative* Veronica Hernandez MD - 04/07/2022 10:37 AM EDT [facility] ALLERGY & IMMUNOLOGY NEW PATIENT VISIT Patient Name: Marek Keyes PRIMARY CARE PHYSICIAN: No primary care provider on file. REASON FOR CONSULT: Eczema REQUESTING PHYSICIAN: Self My final recommendations will be communicated to the requesting health care provider by way of the shared medical record for internal providers or letter via the [employer] for external providers. CHIEF COMPLAINT: Patient presents with: Rash HISTORY OF PRESENT ILLNESS: Marek Keyes is a 26 year old female who presents with atopic dermatitis: Eczema: Diagnosed with eczema in childhood. Typically occurs on arms and face. Triggers for eczema include (she is currently ), but between pregnancies she would still have flare-ups. She would like to know the cause of her symptoms Moisturizes about once per day- she uses Lubiderm. Currently bathing/showering 7 times per week. Uses hot water, soaps- Olay Eczema Prone (fragrance free) The following medications have been used for eczema: topical cream (unsure of name)- only works temporarily- wants to avoid use of medications Itching is poorly controlled at night. She has not tried any medications She took an Everlywell test that was positive to tomato- she tried eliminating tomato with no improvement in symptoms. She has also tried eliminating dairy and gluten with no significant improvement. 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 No systemic rxn to stinging insects. No known hx of latex glove reactions. History reviewed. No pertinent past medical history. There is no problem list on file for this patient. PAST SURGICAL HISTORY Procedure Laterality Date SECTION HX 2020 History reviewed. No pertinent family history. Social History Tobacco Use Smoking status: Never Smokeless tobacco: Never Substance Use Topics Alcohol use: Yes Comment: occ ALLERGIES: ALLERGIES Not on File CURRENT OUTPATIENT MEDICATIONS: valacyclovir HCl (VALTREX ORAL) Take by mouth as needed. REVIEW OF SYSTEMS: HEENT: negative RESPIRATORY: No cough, hemoptysis, recent chest infection, wheezing CONSTITUTIONAL: No acute distress. No weight loss or gain, no fevers or chills CARDIOVASCULAR: negative for chest pain, leg swelling or palpitations. GASTROINTESTINAL: Negative for abdominal discomfort, No blood in stools or black stools MUSCULOSKELETAL: negative for joint pain or swelling, back pain or muscle pain. NEUROLOGIC:Negative for focal numbness or weakness, headaches and dizziness or syncope. DERM/SKIN: as per HPI PSYCHIATRIC: Negative for sleep disturbance, mood disorder and recent psychosocial stressors HEMATOLOGIC/LYMPHATIC/IMMUNOLOGIC:Negative for cold or heat intolerance, polyuria, polydipsia and goiter. PHYSICAL EXAM: BP 106/64 Pulse 108 Temp (Src) 99.9[double checked[ (Temporal Artery) Resp 20 Ht 5' 2 (1.58m) Wt 111 lb (50.3kg) SpO2 100% BMI 20.30 kg/(m^2). General appearance: Well appearing, alert, in no acute distress, well-hydrated, well nourished. HENT: External ears normal, canals clear, TM's normal Eyes: no scleral icterus, PERRLA, EOMS, no conjunctivitis Respiratory: Lungs clear to auscultation. No wheezing, rhonchi, rales Cardiovascular: RRR without murmur, gallop, or rubs. No ectopy Gastroenterology: normal appearing abdomen on inspection Musculoskeletal: No joint pain, muscle weakness, or impaired gait Integumentary: Areas of erythema and xerosis on face and flexural surface of arms Psychiatric: Alert and oriented x 3. No mood disorders noted, calm affect. DATA: No data available Assessment/Recommendations: Flexural atopic dermatitis (primary encounter diagnosis) Comment: Discussed pathophysiology and stepwise treatment modalities for moderate eczema. As she is she is trying to limit any use of pharmacologic agents. Discussed that first-line therapy for eczema is aggressive use of emollients and moisturizers. Discussed preferred products and the best ways to lock in moisture particularly after showers. On her face and arms would advise use of Vaseline as a barrier. Discussed the role of food and atopic dermatitis, based on her history and absence of consistent triggers, advised not to eliminate any food groups particularly during her . Advised if she was concerned about food she can keep a food diary to see if she notices any trends. She inquired about food sensitivity testing, discussed that these are not FDA approved and that there are no standardized tests for food sensitivity, reassuringly she has no history of IgE mediatedreaction to foods. Also counseled on role of patch testing, discussed the mechanism of contact dermatitis, advised to limit use of any cosmetics and fragrance products. Will prescribe topical steroids for management, counseled on safety profile and appropriate use. Plan: - Start Hydrocortisone 2.5% ointment twice daily as needed on face, use for at least 3 days after resolution of symptoms. Do not use for more than 14 consecutive days - Start Triamcinolone 0.1% ointment twice daily as needed on body lesions (do not use on face, axilla, groin), use for at least 3 days after resolution of symptoms. Do not use for more than 14 consecutive days - Reviewed importance of moisturization and frequent emollient use - Provided recommendations for soaps, moisturizers, detergents, and sunscreens for sensitive skin - Addressed itch/scratch cycle and management I spent a total of 50 minutes on the date of the service which included preparing to see the patient, [id number] patient care, completing clinical documentation, obtaining and/or reviewing separately obtained history, performing a medically appropriate examination, counseling and educating the pat ient/family/caregiver, and ordering medications, tests, or procedures. Veronica Hernandez MD [facility] NotePap Smear Specimen AdequacyAugust 2021 2:37pmComment.Satisfactory for evaluation. Endocervical and/or squamous metaplasticcells (endocervical component)are present.LABGotGame INTERFACED A#[id number] [facility] Center Work Phone: Comment on above:Satisfactory for evaluation. Endocervical and/or squamous metaplasticcells (endocervical component)are present.Evaluation note* Diagnosis Onset Date Resolution Status History of section acute acute Supervision of normal acute [facility] Work Phone: Evaluation note* Diagnosis Flexural atopic dermatitis- Primary Other atopic dermatitis and related conditions documented [facility] this encounter [facility] Diagnosis Onset Date Resolution Status History of section acute acute Supervision of normal acute History of section acute acute Supervision of normal acute History of section acute acute Supervision of normal acute History of section acute acute Supervision of normal acute [facility] Work Phone: Evaluation note* Diagnosis Onset Date Resolution Status History of section resolved resolved Supervision of normal resolved History of section resolved resolved Rubella non-immune status, antepartum resolved Supervision of normal resolved History of section resolved resolved Rubella non-immune status, antepartum resolved Supervision of normal resolved History of section resolved resolved Rubella non-immune status, antepartum resolved Supervision of normal resolved Vaginal after acute History of section resolved resolved Rubella non-immune status, antepartum resolved Supervision of normal resolved History of section resolved resolved Rubella non-immune status, antepartum resolved Supervision of normal resolved History of section resolved resolved Rubella non-immune status, antepartum resolved Supervision of normal resolved History of section resolved resolved Rubella non-immune status, antepartum resolved Supervision of normal resolved Vaginal after acute [facility] Work Phone: Progress note Author Dr. Hu [facility] September 18, 2022 10:19am Note Date/Time September 18, 2022 10:1 9am [facility] Medical Records Department [address] [place] [address] Progress Note - OBGYN 09/18/22 1017 MR#: [id number] Acct: [id number] Name: MAREK KEYES Rep #:[id number] : 1995 26 From: Chichi Jimenez DO PCP: Care Physician,No Primary Status :ADM IN Location: BB729-0 Subjective Subjective Patient doing well without complaints. Tolerating PO. Ambulating and voiding without difficulty. Feeding well. Denies chest pain, shortness of breath, calf pain/swelling, fevers, chills, lightheadedness. Objective Data Objective Data Vital Signs: Vital Signs Temp Pulse Resp BP Pulse Ox O2 Del Method 98.1 F 80 16 109/61 99 Room Air 09/18/22 08:10 09/18/22 08:10 09/18/22 08:10 09/18/22 08:10 09/18/22 08:10 09/18/22 08:10 Oxygen Delivery Method Room Air Intake & Output: Intake and Output for Last 24 Hours 09/16/22 09/17/22 09/18/22 23:59 23:59 23:59 Intake Total 16.35 / 16.35 Output Total 1050 / 1050 Balance -1033.65 / -1033.65 Lab / Micro Data Result Diagrams: 09/17/22 05:00 ROS Constitutional Constitutional: Denies chills, fatigue, fever(s), poor appetite or weakness Eyes Eyes: Denies blurry vision, change in vision, seeing flashes or spots in vision ENT HEENT: Denies dizziness, headache(s), loss taste/smell or sore throat Cardiovascular Cardiovascular: Denies chest pain, dizziness, dyspnea, irregular heart rhythm, palpitations or rapid heart rate Respiratory/Chest Respiratory/Chest: Denies chest tightness, cough, dyspnea or breast pain Gastrointestinal Gastrointestinal: Denies abdominal pain, constipation or vomiting Genitourinary Genitourinary: Denies dysuria or flank pain Musculoskeletal Musculoskeletal: Denies difficulty walking, joint pain, limited range of motion or numbness Neurologic Neurologic: Denies abnormal movements, abnormal speech, dizziness, numbness, seizure-like activity or syncope Psychiatric Psychiatric: Denies anxiety, behavioral changes, change in appetite, confusion, depression or suicidal thoughts Physical Exam Const alert, oriented x3 and no apparent distress General Appearance: cooperative and comfortable Resp normal respiratory effort Cardio regular rate GI normal to inspection, nondistended, normoactive bowel sounds GI Narrative: uterus is firm below umbilicus Palpation: soft Back/Spine no CVA tenderness and thoraco-lumbar ROM normal Extremity normal to inspection, no clubbing, cyanosis or edema, no calf tenderness and no pedal edema Psych mental status grossly normal, thought process normal, cooperative, affect normal, speech normal, activity/motor behavior normal, denies homicidal ideationand denies suicidal ideation Assessment & Plan (1) Vaginal after : COMMENT: SM 40 girl Taylor PLAN: s/p PPD # 1 successful precip delivery 1. routine post delivery care 2. breast feeding- support given 3. rh positive 4. rubella immune 5. pt wants to go home today. 09/18/22 1019 <Electronically signed by Chichi Jimenez DO> Cosigner Signature (if applicable): CC: ~ Signed [facility] Work Phone: Progress note Author Smiley Conte [facility] Note Date/Time January 23, 2025 10:10 am [facility] [address] [place] [address], [address] [place] [address] OFFICE VISIT Date of Service: 01/23/25 MR#: [id number] Acct: [id number] Name: MAREK KEYES Rep #: [id number] : 1995 Provider: GEORGE Conte Age/Sex: 29/F [place] [facility] [place]: Signed Intake Vital Signs 12/07/24 10:49 01/10/25 15:34 01/23/25 09:59 Height 5 ft 1 in 5 ft 1 in 5 ft 1 in Weight: 127 lb 2 oz BMI 24.0 BP 100/62 Intake Visit Reasons: 30wk ob Chief Complaint: 30 Week OB Port Cdl A Driver Required: No Is patient in pain?: No Allergies No Known Allergies Allergy (Verified 01/23/25 09:59) Medications ?Medication ?Instructions ?Recorded ?Confirmed ?Type multivit-min no.71-iron fum 28 cap PO 08/24/24 5 History mg-folate no.1 1 mg-dha 300 mg capsule (PNV-[facility]point) Last Menstrual Period: 07/04/24 Zika: Zika virus screening: Negative : No PFSH PFSH Medical History Vaginal after Surgical History Hx of section Social History adopted: No household members: spouse and children housing: house number of children: 2 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: No pets and animals: No history of recent travel: No (December) sexually active: Yes Smoking Status: Never smoker second hand exposure: No alcohol intake: current alcohol intake frequency: holidays/special occasions only details: social occasions- Not while substance use type: does not use diet: lactose free well-balanced diet: daily or most days caffeine: Yes Type: coffee Number of servings: 1 eating out: 1-3 times/week during the past year weight has: remained stable what type of physical activity do you participate in: walking and other details: pilates frequency: 3-4 times per week duration: 45-60 minutes/day dustin/bahai: Moravian seatbelt use: always do you feel safe at home: Yes additional social history: Spouse - Raciel History 3 Elective abortions Hx Para 2 Spontaneous abortions Hx # Term Pregnancies Ectopic pregnancies Hx # Pregnancies Multiple births # of living children 2 Past Pregnancies Del. Date Name GA/Weeks Outcome Route Bth Weight Gen Labor Lgth Anesthesia Del Locatn Provider FOB Unknown 06/16/20 Mich 40 live - full term 7# 15 oz Male [address] Bert Schrader 09/17/22 [place] 39 live - full term 6# 11oz Female 5-6 hrs none [facility] Naeem Schrader Delivery Date: Last Updated by: Hannah Strickland Emergency csection due to decels during pushing Delivery Date: 09/17/22 Last Updated by: Ami Lawrence SM HPI 30wk ob Details: MAREK KEYES is a 29 year old who presents for routine OB visit. OB Visit MILENA Calculator Estimated Delivery Date Method Current WG Current Estimate 04/10/25 LMP (Certain) 29w 0d Other Estimates 04/09/25 Ultrasound #1 29w 1d Expected Delivery Route/Plan patient counseled regarding risks/benefits of trial of labor versus repeat . ACOG/uptodate education given to patient. 93 % likelihood of success per calculator TOLAC consent form signed: [] Labor Preferences- CB/BF classes: no labor support person: Raciel labor intervention preferences: [] pain management options preferred: limited; short labor cut cord/dad catch: yes : yes PP control planned: discussed discussed possible routes of delivery and associated risks: [] special requests: [] Specific Issue/Plans Covid status: [] Flu vaccine: [] Tdap vaccine: [] Rhogam: [] LARC form signed: yes Problem list reviewed and updated with the most current plan of care details and appropriate orders placed. Relevant counseling for the gestational age provided. Continue routine care and follow up unless otherwise noted in visit notes/problem list details Initial Weight: 116 lb Date -?-?-?-?-?-?-?-?-?-?-?-?- EGA Weight BP Urine Prot -?-?-?-?-?-?-?-?-?-?-?-?- Glucose FHR FuHt Pres Dilation -?-?-?-?-?-?-?-?-?-?-?-?- Effaced St Visit Note 09/14/24 -?-?--?-?-?-?-?-?-?-?-?-?- 10w 2d 116 lb (+0 oz) 125/72 -?-?-?-?-?-?-?-?-?-?-?-?- 159 -?-?-?-?-?-?-?-?-?-?-?-?- KW- CRL cons wit h dates. declines NIPT. 10/12/24 -?-?-?-?-?-?-?-?-?-?-?-?- 14w 2d 117 lb 4 oz (+1 lb 4 oz) 118/80 Negative -?-?-?-?-?-?-?-?-?-?-?-?- Negative 163 -?-?-?-?-?-?-?-?-?-?-?-?- MH-No VB. Nausea continues but managable with B6. Enc add unisom. Declines AFP 11/06/24 -?-?-?-?-?-?-?-?-?-?-?-?- 17w 6d 114 lb 8 oz (-1 lb 8 oz) 114/80 -?-?-?-?-?-?-?-?-?-?-?-?- 150 -?-?-?-?-?-?-?-?-?-?-?-?- SM- no vb julianai ng 12/07/24 -?-?-?-?-?-?-?-?-?-?-?-?- 22w 2d 123 lb (+7 lb) 104/66 Negative -?-?-?-?-?-?-?-?-?-?-?-?- Negative 140 22 -?-?-?-?-?-?-?-?-?-?-?-?- JV- normal anato my scan. no complaints. wants to . 01/10/25 -?-?-?-?-?-?-?-?-?-?-?-?- 27w 1d 127 lb 2 oz (+11 lb 2 oz) 106/68 Negative -?-?-?-?-?-?-?-?-?-?-?-?- Negative 151 26 -?-?-?-?-?-?-?-?-?-?-?-?- MH-No VB, LUCINDA. G tim FM. 28 wk labs pending. [facility] 01/23/25 -?-?-?-?-?-?-?-?-?-?-?-?- 29w 0d 127 lb 2 oz (+11 lb 2 oz) 100/62 -?-?-?-?-?-?-?-?-?-?-?-?- 145 28 -?-?-?-?-?-?-?-?-?-?-?-?- MH-No VB, LOF. G ood FM. Denies concerns ACOG First Trimester First Trimester: Desire for , Alcohol, Tobacco Cessation, Illicit/Recreational Drug/Substance Use, Intimate Partner Violence, Barriers to care, Unstable Housing, Communication Barriers, Environmental/Work Hazards, Anticipated Course of Care, Toxoplasmosis Precations, Use of Any medications, Sexual activity, Exercise, Dental Care, Sauna/Hot tub use, Seat Belt use, Childbirth classes/Hospital facilities, Travel, Indications for Ultrasound and Screening for Aneuploidy; Discussed Second Trimester Second Trimester: Signs and Symptoms of Labor, Selecting a care provider, Reproductive Life Planning & Contreception, Care Planning, Depression/Anxiety and Intimate Partner Violence; Discussed Tobacco Cessation Third Trimester Third Trimester: Pain Management Plans, Labor support person(s), Immediate Larc, Movement Monitoring, Signs and Symptoms of Preeclampsia, Infant Feeding No , Education and Family Medical Leave or Disability Forms ROS Const Reports system reviewed and no additional complaints, except as documented GI Denies abdominal pain, Denies nausea and Denies vomiting Exam Const General: cooperative Nutritional Appearance: well nourished GI Palpation: soft, nontender and other (gravid) Coding Level of Care Code Off vis,est,level 3 Diagnoses Encounter for supervision of other normal in third trimester Z34.83 Normal : other normal Trimester: third trimester 29 weeks gestation of Z3A.29 Weeks of gestation: 29 weeks Rubella non-immune status, antepartum O09.899; Z28.39 Previous delivery affecting O34.219 Hx successful (vaginal after ), currently O34.219 Assessment and Plan Assessment and Plan (1) Supervision of normal : Status: Acute Qualifiers: Normal : other normal Trimester: third trimester Qualified Code(s): Z34.83 - Encounter for supervision of other normal , third trimester Comment: PRR , MILENA 04/10/25, PC Michaela Epps, Raciel (2) : Status: Acute Qualifiers: Weeks of gestation: 29 weeks Qualified Code(s): Z3A.29 - 29 weeks gestation of Comment: declined NIPT & Carrier testing. nl anatomy. (3) Rubella non-immune status, antepartum: Status: Acute Comment: MMR pp (4) Previous delivery affecting : Status: Acute Comment: desires (5) Hx successful (vaginal after ), currently : Status: Acute Orders: Orders POC Urinalysis 2 Dip (Clinic) Today Plan problem list reviewed and updated for most current plan of care and appropriate orders placed. Relevant counseling for the gestational age appropriate provided and ACOG education checklist updated. Continue routine care and follow up. 01/23/25 1010 <Electronically signed by Smiley rangel DISTRICT ADVISER DISTRICT ADVISER-C> Date _ Smiley Conte DISTRICT ADVISER DISTRICT ADVISER-C Cosigner Signature: Date (if applicable) CC: ~ [facility] Work Phone: Progress note Author Chichi Hu [facility] [facility] Note Date/Time February 21, 2025 10: 09am [facility] [address] [place] [address], [address] [place] [address] OFFICE VISIT Date of Service: 02/21/25 MR#: [id number] Acct: [id number] Name: MAREK KEYES Ruby Rep #: [id number] : 1995 Provider: Dr. Amie Jimenez DO Age/Sex: 29/F [place] [facility] [place]: Signed Intake Vital Signs 01/10/25 15:34 02/05/25 09:33 02/21/25 09:51 02/21/25 09:53 Height 5 ft 1 in 5 ft 1 in 5 ft 1 in 5 ft 1 in Weight: 131 lb 9 oz BMI 24.8 BP 121/75 H Intake Visit Reasons: 33wk ob Port Cdl A Driver Required: No Is patient in pain?: No Allergies No Known Allergies Allergy (Verified 02/21/25 09:50) Medications ?Medication ?Instructions ?Recorded ?Confirmed ?Type multivit-min no.71-iron fum 28 cap PO 08/24/24 5 History mg-folate no.1 1 mg-dha 300 mg capsule (PNV-[facility]point) Last Menstrual Period: 07/04/24 Zika: Zika virus screening: Negative : No PFSH PFSH Medical History Vaginal after Surgical History Hx of section Social History adopted: No household members: spouse and children housing: house number of children: 2 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: No pets and animals: No history of recent travel: No (December) sexually active: Yes Smoking Status: Never smoker second hand exposure: No alcohol intake: current alcohol intake frequency: holidays/special occasions only details: social occasions- Not while substance use type: does not use diet: lactose free well-balanced diet: daily or most days caffeine: Yes Type: coffee Number of servings: 1 eating out: 1-3 times/week during the past year weight has: remained stable what type of physical activity do you participate in: walking and other details: pilates frequency: 3-4 times per week duration: 45-60 minutes/day dustin/bahai: Moravian seatbelt use: always do you feel safe at home: Yes additional social history: Spouse - Raciel History 3 Elective abortions Hx Para 2 Spontaneous abortions Hx # Term Pregnancies Ectopic pregnancies Hx # Pregnancies Multiple births # of living children 2 Past Pregnancies Del. Date Name GA/Weeks Outcome Route Bth Weight Infant Gen Labor Lgth Anesthesia Del Locatn Provider FOB Unknown 06/16/20 Mich 40 live - full term 7# 15 oz Male [address] Bert Schrader 09/17/22 [place] 39 live - full term 6# 11oz Female 5-6 hrs none [facility] Naeem Schrader Delivery Date: Last Updated by: Hannah Strickland Emergency csection due to decels during pushing Delivery Date: 09/17/22 Last Updated by: Ami Lawrence HPI 33wk ob Details: MAREK KEYES is a 29 year old who presents for routine OB visit. OB Visit MILENA Calculator Estimated Delivery Date Method Current WG Current Estimate 04/10/25 LMP (Certain) 33w 1d Other Estimates 04/09/25 Ultrasound #1 33w 2d Expected Delivery Route/Plan tolac patient counseled regarding risks/benefits of trial of labor versus repeat . ACOG/uptodate education given to patient. 93 % likelihood of success per calculator TOLAC consent form signed: [] Labor Preferences- CB/BF classes: no labor support person: Raciel labor intervention preferences: [] pain management options preferred: limited; short labor cut cord/dad catch: yes : yes PP control planned: discussed discussed possible routes of delivery and associated risks: [] special requests: [] Specific Issue/Plans Covid status: [] Flu vaccine: [] Tdap vaccine: declined Rhogam: na LARC form signed: yes movement and labor precautions reviewed Problem list reviewed and updated with the most current plan of care details and appropriate orders placed. Relevant counseling for the gestational age provided. Continue routine care and follow up unless otherwise noted in visit notes/problem list details Initial Weight: 116 lb Date -?-?-?-?-?-?-?-?-?-?-?-?- EGA Weight BP Urine Prot -?-?-?-?-?-?-?-?-?-?-?-?- Glucose FHR FuHt Pres Dilation -?-?-?-?-?-?-?-?-?-?-?-?- Effaced St Visit Note 09/14/24 -?-?-?-?-?-?-?-?-?-?-?-?- 10w 2d 116 lb (+0 oz) 125/72 -?-?-?-?-?-?-?-?-?-?-?-?- 159 -?-?-?-?-?-?-?-?-?-?-?-?- KW- CRL cons wit h dates. declines NIPT. 10/12/24 -?-?-?-?-?-?-?-?-?-?-?-?- 14w 2d 117 lb 4 oz (+1 lb 4 oz) 118/80 Negative -?-?-?-?-?-?-?-?-?-?-?-?- Negative 163 -?-?-?-?-?-?-?-?-?-?-?-?- MH-No VB. Nausea continues but managable with B6. Enc add unisom. Declines AFP 11/06/24 -?-?-?-?-?-?-?-?-?-?-?-?- 17w 6d 114 lb 8 oz (-1 lb 8 oz) 114/80 -?-?-?-?-?-?-?-?-?-?-?-?- 150 -?-?-?-?-?-?-?-?-?-?-?-?- SM- no vb crampi ng 12/07/24 -?-?-?-?-?-?-?-?-?-?-?-?- 22w 2d 123 lb (+7 lb) 104/66 Negative -?-?-?-?-?-?-?-?-?-?-?-?- Negative 140 22 -?-?-?-?-?-?-?-?-?-?-?-?- JV- normal anato my scan. no complaints. wants to . 01/10/25 -?-?-?-?-?-?-?-?-?-?-?--?- 27w 1d 127 lb 2 oz (+11 lb 2 oz) 106/68 Negative -?-?-?-?-?-?-?-?-?-?-?-?- Negative 151 26 -?-?-?-?-?-?-?-?-?-?-?-?- -No VB, LOF. G tim FM. 28 wk labs pending. [facility] 01/23/25 -?-?-?-?-?-?-?-?-?-?-?-?- 29w 0d 127 lb 2 oz (+11 lb 2 oz) 100/62 -?-?-?-?-?-?-?-?-?-?-?-?- 145 28 -?-?-?-?-?-?-?-?-?-?-?-?- MH-No VB, LOF. G ood FM. Denies concerns 02/05/25 -?-?-?-?-?-?-?-?-?-?-?-?- 30w 6d 128 lb 2 oz (+12 lb 2 oz) 115/71 Negative -?-?-?-?-?-?-?-?-?-?-?-?- Negative 140 31 -?-?-?-?-?-?-?-?-?-?-?-?- SM- no vb lof go od fm no reuglar ctx declined tdap 02/21/25 -?-?-?-?-?-?-?-?-?-?-?-?- 33w 1d 131 lb 9 oz (+15 lb 9 oz) 121/75 Negative -?-?-?-?-?-?-?-?-?-?-?--?- Negative 131 31 -?-?-?-?-?-?-?-?-?-?-?-?- JV- no lof, vagi nal bleeding, or cramping other than round ligament pain. measuring a little small. growth scan ordered. TOLAC consent discussed and signed. ACOG First Trimester First Trimester: Desire for , Alcohol, Tobacco Cessation, Illicit/Recreational Drug/Substance Use, Intimate Partner Violence, Barriers to care, Unstable Housing, Communication Barriers, Environmental/Work Hazards, Anticipated Course of Care, Toxoplasmosis Precations, Use of Any medications, Sexual activity, Exercise, Dental Care, Sauna/Hot tub use, Seat Belt use, Childbirth classes/Hospital facilities, Travel, Indications for Ultrasound and Screening for Aneuploidy; Discussed Second Trimester Second Trimester: Signs and Symptoms of Labor, Selecting a care provider, Reproductive Life Planning & Contreception, Care Planning, Depression/Anxiety and Intimate Partner Violence; Discussed Tobacco Cessation Third Trimester Third Trimester: Pain Management Plans, Labor support person(s), Immediate Larc, Movement Monitoring, Signs and Symptoms of Preeclampsia, Feeding No , [place] Education and Family Medical Leave or Disability Forms Results POC Urinalysis 2 Dip (Clinic) 2 Office Urine Glucose Negative Last Edit by Kat Jimenes on 02/21/25 10: 00 Office Urine Protein Negative Last Edit by Kat Jimenes on 02/21/25 10: 00 Coding Level of Care Code OB Routine Diagnoses Previous delivery affecting O34.219 Rubella non-immune status, antepartum O09.899; Z28.39 Encounter for supervision of other normal in third trimester Z34.83 Normal : other normal Trimester: third trimester 33 weeks gestation of Z3A.33 Weeks of gestation: 33 weeks Hx successful (vaginal after ), currently O34.219 Small for gestational age due to malnutrition P05.10 Assessment and Plan Assessment and Plan (1) Previous delivery affecting : Status: Acute Comment: desires (2) Rubella non-immune status, antepartum: Status: Acute Comment: MMR pp (3) Supervision of normal : Status: Acute Qualifiers: Normal : other normal Trimester: third trimester Qualified Code(s): Z34.83 - Encounter for supervision of other normal , third trimester Comment: PRR , MILENA 04/10/25,girl PC Michaela Epps, Raciel (4) : Status: Acute Qualifiers: Weeks of gestation: 33 weeks Qualified Code(s): Z3A.33 - 33 weeks gestation of Comment: declined NIPT & Carrier testing. nl anatomy. (5) Hx successful (vaginal after ), currently : Status: Acute (6) Small for gestational age due to malnutrition: Status: Acute Orders: Orders POC Urinalysis 2 Dip (Clinic) Today OB Limited With Biometrics Today P05.10 - Rawson small for gestational age, unspecified weight 02/21/25 1009 <Electronically signed by Chichi Easley DO> Date _ Chichi Jimenez DO Cosigner Signature: Date (if applicable) CC: ~ [facility] Work Phone: Progress note Author Mounika Treviño [facility] Note Date/Time March 07, 2025 9: 36am [facility] [address], [address] [place] [address] OFFICE VISIT Date of Service: 03/07/25 MR#: [id number] Acct: [id number] Name: MAREK KEYES Rep #: [id number] : 1995 Provider: PARVIZ Treviño Age/Sex: 29/F Location: [facility] [place] Status: Signed Intake Vital Signs 01/10/25 15:34 02/21/25 09:53 03/07/25 09:22 Height 5 ft 1 in 5 ft 1 in 5 ft 1 in Weight: 133 lb 2 oz BMI 25.1 BP 104/64 Intake Visit Reasons: 35wk ob Chief Complaint: 35wk OB Port Cdl A Driver Required: No Is patient in pain?: No Allergies No Known Allergies Allergy (Verified 03/07/25 09:19) Medications ?Medication ?Instructions ?Recorded ?Confirmed ?Type multivit-min no.71-iron fum 28 cap PO 08/24/24 5 History mg-folate no.1 1 mg-dha 300 mg capsule (PNV-[facility]) Last Menstrual Period: 07/04/24 : No PFSH PFSH Medical History Vaginal after Surgical History Hx of section Social History adopted: No household members: spouse and children housing: house number of children: 2 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: No pets and animals: No history of recent travel: No (December) sexually active: Yes Smoking Status: Never smoker second hand exposure: No alcohol intake: current alcohol intake frequency: holidays/special occasions only details: social occasions- Not while substance use type: does not use diet: lactose free well-balanced diet: daily or most days caffeine: Yes Type: coffee Number of servings: 1 eating out: 1-3 times/week during the past year weight has: remained stable what type of physical activity do you participate in: walking and other details: pilates frequency: 3-4 times per week duration: 45-60 minutes/day dustin/bahai: Moravian seatbelt use: always do you feel safe at home: Yes additional social history: Spouse - Raciel History 3 Elective abortions Hx Para 2 Spontaneous abortions Hx # Term Pregnancies Ectopic pregnancies Hx # Pregnancies Multiple births # of living children 2 Past Pregnancies Del. Date Name GA/Weeks Outcome Route Bth Weight Infant Gen Labor Lg[facility]est[facility] FOB Unknown 06/16/20 Mich 40 live - full term 7# 15 oz Male [address] Bert Schrader 09/17/22 [place] 39 live - full term 6# 11oz Female 5-6 hrs none [facility] Naeem Schrader Delivery Date: Last Updated by: Hannah Strickland Emergency csection due to decels during pushing Delivery Date: 09/17/22 Last Updated by: Ami Lawrence SM HPI 35wk ob Details: MAREK KEYES is a 29 year old who presents for routine OB visit. OB Visit MILENA Calculator Estimated Delivery Date Method Current WG Current Estimate 04/10/25 LMP (Certain) 35w 1d Other Estimates 04/09/25 Ultrasound #1 35w 2d Expected Delivery Route/Plan tolac patient counseled regarding risks/benefits of trial of labor versus repeat . ACOG/uptodate education given to patient. 93 % likelihood of success per calculator TOLAC consent form signed: [] Labor Preferences- CB/BF classes: no labor support person: Raciel labor intervention preferences: [] pain management options preferred: limited; short labor cut cord/dad catch: yes : yes PP control planned: discussed discussed possible routes of delivery and associated risks: [] special requests: [] Specific Issue/Plans Covid status: [] Flu vaccine: [] Tdap vaccine: declined Rhogam: na LARC form signed: yes movement and labor precautions reviewed Problem list reviewed and updated with the most current plan of care details and appropriate orders placed. Relevant counseling for the gestational age provided. Continue routine care and follow up unless otherwise noted in visit notes/problem list details Initial Weight: 116 lb Date -?-?-?-?-?-?-?-?-?-?-?-?- EGA Weight BP Urine Prot -?-?-?-?-?-?-?-?-?-?-?-?- Glucose FHR FuHt Pres Dilation -?-?-?-?-?-?-?-?-?-?-?-?- Effaced St Visit Note 09/14/24 -?-?-?-?-?-?-?-?-?-?-?-?- 10w 2d 116 lb (+0 oz) 125/72 -?-?-?-?-?-?-?-?-?-?-?-?- 159 -?-?-?-?-?-?-?-?-?-?-?-?- KW- CRL cons wit h dates. declines NIPT. 10/12/24 -?-?-?-?-?-?-?-?-?-?-?-?- 14w 2d 117 lb 4 oz (+1 lb 4 oz) 118/80 Negative -?-?-?-?-?-?-?-?-?-?-?-?- Negative 163 -?-?-?-?-?-?-?-?-?-?-?-?- MH-No VB. Nausea continues but managable with B6. Enc add unisom. Declines AFP 11/06/24 -?-?-?-?-?-?-?-?-?-?-?-?- 17w 6d 114 lb 8 oz (-1 lb 8 oz) 114/80 -?-?-?-?-?-?-?-?-?-?-?-?- 150 -?-?-?-?-?-?-?-?-?-?-?-?- SM- no vb crampi ng 12/07/24 -?-?-?-?-?-?-?-?-?-?-?-?- 22w 2d 123 lb (+7 lb) 104/66 Negative -?-?-?-?-?-?-?-?-?-?-?-?- Negative 140 22 -?-?-?-?-?-?-?-?-?--?-?-?- JV- normal anato my scan. no complaints. wants to . 01/10/25 -?-?-?-?-?-?-?-?-?-?-?-?- 27w 1d 127 lb 2 oz (+11 lb 2 oz) 106/68 Negative -?-?-?-?-?-?-?-?-?-?-?-?- Negative 151 26 -?-?-?-?-?-?-?-?-?-?-?-?- MH-No VB, LOF. G ood FM. 28 wk labs pending. [facility] 01/23/25 -?-?-?-?-?-?-?-?-?-?-?-?- 29w 0d 127 lb 2 oz (+11 lb 2 oz) 100/62 -?-?-?-?-?-?-?-?-?-?-?-?- 145 28 -?-?-?-?-?-?-?-?-?-?-?-?- MH-No VB, LOF. G ood FM. Denies concerns 02/05/25 -?-?-?-?-?-?-?-?-?-?-?-?- 30w 6d 128 lb 2 oz (+12 lb 2 oz) 115/71 Negative -?-?-?-?-?-?-?-?-?-?-?-?- Negative 140 31 -?-?-?-?-?-?-?-?-?-?-?-?- SM- no vb lof go od fm no reuglar ctx declined tdap 02/21/25 -?-?-?-?-?-?-?-?-?-?-?-?- 33w 1d 131 lb 9 oz (+15 lb 9 oz) 121/75 Negative -?-?-?-?-?-?-?-?-?-?-?-?- Negative 131 31 -?-?-?-?-?-?-?-?-?-?-?-?- JV- no lof, vagi nal bleeding, or cramping other than round ligament pain. measuring a little small. growth scan ordered. TOLAC consent discussed and signed. 03/07/25 -?-?-?-?-?--?-?-?-?-?-?-?- 35w 1d 133 lb 2 oz (+17 lb 2 oz) 104/64 Negative -?-?-?-?-?-?-?-?-?-?-?-?- Negative 150 33 -?-?-?-?-?-?-?-?-?-?-?-?- KW- no vb/lof/ct x. good fm. GBS next visit. would like growth US through MFM- ordered. ACOG First Trimester First Trimester: Desire for , Alcohol, Tobacco Cessation, Illicit/Recreational Drug/Substance Use, Intimate Partner Violence, Barriers to care, Unstable Housing, Communication Barriers, Environmental/Work Hazards, Anticipated Course of Care, Toxoplasmosis Precations, Use of Any medications, Sexual activity, Exercise, Dental Care, Sauna/Hot tub use, Seat Belt use, Childbirth classes/Hospital facilities, Travel, Indications for Ultrasound and Screening for Aneuploidy; Discussed Second Trimester Second Trimester: Signs and Symptoms of Labor, Selecting a care provider, Reproductive Life Planning & Contreception, Care Planning, Depression/Anxiety and Intimate Partner Violence; Discussed Tobacco Cessation Third Trimester Third Trimester: Pain Management Plans, Labor support person(s), Immediate Larc, Movement Monitoring, Signs and Symptoms of Preeclampsia, Infant Feeding No , [place] Education and Family Medical Leave or Disability Forms ROS Const Reports system reviewed and no additional complaints, except as documented Eyes Reports system reviewed and no additional complaints, except as documented ENT Reports system reviewed and no additional complaints, except as documented Card Reports system reviewed and no additional complaints, except as documented Resp Reports system reviewed and no additional complaints, except as documented GI Reports system reviewed and no additional complaints, except as documented, Denies nausea and Denies vomiting Reports system reviewed and no additional complaints, except as documented Musc Reports system reviewed and no additional complaints, except as documented Skin/Breast Reports system reviewed and no additional complaints, except as documented Neuro Yes system reviewed and no additional complaints, except as documented Psych Reports system reviewed and no additional complaints, except as documented Endo Reports system reviewed and no additional complaints, except as documented Jeffry/Lymph Reports system reviewed and no additional complaints, except as documented Aller/Immun Reports system reviewed and no additional complaints, except as documented Exam Const General: cooperative, healthy appearing and no acute distress Orientation: alert, awake and oriented x3 HENMT Head: normal to inspection Ears: hearing grossly normal bilaterally Neck Neck: normal visual inspection and full ROM Resp Effort & Inspection: normal respiratory effort, able to speak in complete sentences and symmetric chest movement GI Inspection: normal to inspection Palpation: soft and other Other: gravid Skin General: no rashes or lesions noted Lesions: no lesions Rashes: no rashes Neuro General: patient alert, patient awake and patient oriented x3 Cognition: normal cognition Speech: speech normal Gait: normal gait Motor: muscle tone normal throughout Extrem General: normal to inspection and full ROM Psych Appearance: grossly normal Mental Status: mental status grossly normal Mood: congruent mood Affect: normal affect Speech and Movement: speech and movement normal Attitude: cooperative Thought Process: normal Thought Content: normal Judgment: judgment good Results POC Urinalysis 2 Dip (Clinic) Office Urine Glucose Negative Last Edit by Callie Birch on 03/07/25 09:27 Office Urine Protein Negative Last Edit by Callie Birch on 03/07/25 09:27 Coding Level of Care Code Off vis,est,level 3 Diagnoses Small for gestational age due to malnutrition P05.10 Previous delivery affecting O34.219 Rubella non-immune status, antepartum O09.899; Z28.39 Encounter for supervision of other normal in third trimester Z34.83 Normal : other normal Trimester: third trimester 35 weeks gestation of Z3A.35 Weeks of gestation: 35 weeks Hx successful (vaginal after ), currently O34.219 Assessment and Plan Assessment and Plan (1) Small for gestational age due to malnutrition: Status: Acute (2) Previous delivery affecting : Status: Acute Comment: desires (3) Rubella non-immune status, antepartum: Status: Acute Comment: MMR pp (4) Supervision of normal : Status: Acute Qualifiers: Normal : other normal Trimester: third trimester Qualified Code(s): Z34.83 - Encounter for supervision of other normal , third trimester Comment: PRR , MILENA 04/10/25,girl PC Michaela Epps, Raciel (5) : Status: Acute Qualifiers: Weeks of gestation: 35 weeks Qualified Code(s): Z3A.35 - 35 weeks gestation of Comment: declined NIPT & Carrier testing. nl anatomy. (6) Hx successful (vaginal after ), currently : Status: Acute Orders: Orders POC Urinalysis 2 Dip (Clinic) Today Plan Details Additional Comments: ACOG trimester education reviewed and updated. see problem list details for updated plan management information and see below for orders placed at this visit. GA appropriate handout given. 03/07/25 0936 <Electronically signed by Mounika rangel CNM> Date _ Mounika Treviño CNM Cosigner Signature: Date (if applicable) CC: ~ [facility] Work Phone: Progress note Author Smiley Conte [facility] Note Date/Time March 14, 2025 9: 58am [facility] [address] [place] [address], [address] [place] [address] OFFICE VISIT Date of Service: 03/14/25 MR#: [id number] Acct: [id number] Name: MAREK KEYES Rep #: [id number] : 1995 Provider: GEORGE Conte Age/Sex: 29/F [place] [facility] [place]: Signed Intake Vital Signs 02/05/25 09:33 03/07/25 09:22 03/14/25 09:45 Height 5 ft 1 in 5 ft 1 in 5 ft 1 in Weight: 133 lb 9 oz BMI 25.2 BP 104/82 H Intake Visit Reasons: 36wk ob Chief Complaint: 36 Week OB Port Cdl A Driver Required: No Is patient in pain?: No Allergies No Known Allergies Allergy (Verified 03/14/25 09:46) Medications ?Medication ?Instructions ?Recorded ?Confirmed ?Type multivit-min no.71-iron fum 28 cap PO 08/24/24 5 History mg-folate no.1 1 mg-dha 300 mg capsule (PNV-[facility]) Last Menstrual Period: 07/04/24 Zika: Zika virus screening: Negative : No PFSH PFSH Medical History Vaginal after Surgical History Hx of section Social History adopted: No household members: spouse and children housing: house number of children: 2 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: No pets and animals: No history of recent travel: No (December) sexually active: Yes Smoking Status: Never smoker second hand exposure: No alcohol intake: current alcohol intake frequency: holidays/special occasions only details: social occasions- Not while substance use type: does not use diet: lactose free well-balanced diet: daily or most days caffeine: Yes Type: coffee Number of servings: 1 eating out: 1-3 times/week during the past year weight has: remained stable what type of physical activity do you participate in: walking and other details: pilates frequency: 3-4 times per week duration: 45-60 minutes/day dustin/bahai: Moravian seatbelt use: always do you feel safe at home: Yes additional social history: Spouse - Raciel History 3 Elective abortions Hx Para 2 Spontaneous abortions Hx # Term Pregnancies Ectopic pregnancies Hx # Pregnancies Multiple births # of living children 2 Past Pregnancies Del. Date Name GA/Weeks Outcome Route Bth Weight Gen Labor Lgth Anesthesia Del Locatn Provider FOB Unknown 06/16/20 Mich 40 live - full term 7# 15 oz Male [address] Bert Schrader 09/17/22 [place] 39 live - full term 6# 11oz Female 5-6 hrs none [facility] Naeem Schrader Delivery Date: Last Updated by: Hananh Strickland Emergency csection due to decels during pushing Delivery Date: 09/17/22 Last Updated by: Ami Lawrence SM HPI 36wk ob Details: MAREK KEYES is a 29 year old who presents for routine OB visit. OB Visit MILENA Calculator Estimated Delivery Date Method Current WG Current Estimate 04/10/25 LMP (Certain) 36w 1d Other Estimates 04/09/25 Ultrasound #1 36w 2d Expected Delivery Route/Plan tolac patient counseled regarding risks/benefits of trial of labor versus repeat . ACOG/uptodate education given to patient. 93 % likelihood of success per calculator TOLAC consent form signed: [] Labor Preferences- CB/BF classes: no labor support person: Raciel labor intervention preferences: [] pain management options preferred: limited; short labor cut cord/dad catch: yes : yes PP control planned: discussed discussed possible routes of delivery and associated risks: [] special requests: [] Specific Issue/Plans Covid status: [] Flu vaccine: [] Tdap vaccine: declined Rhogam: na LARC form signed: yes movement and labor precautions reviewed Problem list reviewed and updated with the most current plan of care details and appropriate orders placed. Relevant counseling for the gestational age provided. Continue routine care and follow up unless otherwise noted in visit notes/problem list details Initial Weight: 116 lb Date -?-?-?-?-?-?-?-?-?-?-?-?- EGA Weight BP Urine Prot -?-?-?-?-?-?-?-?-?-?-?-?- Glucose FHR FuHt Pres Dilation -?-?-?-?-?-?-?-?-?-?-?-?- Effaced St Visit Note 09/14/24 -?-?-?-?-?-?-?-?-?-?-?-?- 10w 2d 116 lb (+0 oz) 125/72 -?-?-?-?-?-?-?-?-?-?-?-?- 159 -?-?-?-?-?-?-?-?-?-?-?-?- KW- CRL cons wit h dates. declines NIPT. 10/12/24 -?-?-?-?-?-?-?-?-?-?-?-?- 14w 2d 117 lb 4 oz (+1 lb 4 oz) 118/80 Negative -?-?-?-?-?-?-?-?-?-?-?-?- Negative 163 -?-?-?-?-?-?-?-?-?-?-?-?- MH-No VB. Nausea continues but managable with B6. Enc add unisom. Declines AFP 11/06/24 -?-?-?-?-?-?-?-?-?-?-?-?- 17w 6d 114 lb 8 oz (-1 lb 8 oz) 114/80 -?-?-?-?-?-?-?-?-?-?-?-?- 150 -?-?-?-?-?-?-?-?-?-?-?-?- SM- no vb crampi ng 12/07/24 -?-?-?-?-?-?-?-?-?-?-?-?- 22w 2d 123 lb (+7 lb) 104/66 Negative -?-?-?-?-?-?-?-?-?-?-?-?- Negative 140 22 -?-?-?-?-?-?-?-?-?-?-?-?- JV- normal anato my scan. no complaints. wants to . 01/10/25 -?-?-?-?-?-?-?-?--?-?-?-?- 27w 1d 127 lb 2 oz (+11 lb 2 oz) 106/68 Negative -?-?-?-?-?-?-?-?-?-?-?-?- Negative 151 26 -?-?-?-?-?-?-?-?-?-?-?-?- MH-No VB, LOF. G leood FM. 28 wk labs pending. [facility] 01/23/25 -?-?-?-?-?-?-?-?-?-?-?-?- 29w 0d 127 lb 2 oz (+11 lb 2 oz) 100/62 -?-?-?-?-?-?-?-?-?-?-?-?- 145 28 -?-?-?-?-?-?-?-?-?-?-?-?- MH-No VB, LOF. G ood FM. Denies concerns 02/05/25 -?-?-?-?-?-?-?-?-?-?-?-?- 30w 6d 128 lb 2 oz (+12 lb 2 oz) 115/71 Negative -?-?-?-?-?-?-?-?-?-?-?-?- Negative 140 31 -?-?-?-?-?-?-?-?-?-?-?-?- SM- no vb lof go od fm no reuglar ctx declined tdap 02/21/25 -?-?-?-?-?-?-?-?-?-?-?-?- 33w 1d 131 lb 9 oz (+15 lb 9 oz) 121/75 Negative -?-?-?-?-?-?-?-?--?-?-?-?- Negative 131 31 -?-?-?-?-?-?-?-?-?-?-?-?- JV- no lof, vagi nal bleeding, or cramping other than round ligament pain. measuring a little small. growth scan ordered. TOLAC consent discussed and signed. 03/07/25 -?-?-?-?-?-?-?-?-?-?-?-?- 35w 1d 133 lb 2 oz (+17 lb 2 oz) 104/64 Negative -?-?-?-?-?-?-?-?-?-?-?-?- Negative 150 33 -?-?-?-?-?-?-?-?-?-?-?-?- KW- no vb/lof/ct x. good fm. GBS next visit. would like growth US through MFM- ordered. 03/14/25 -?-?-?-?-?-?-?-?-?-?-?-?- 36w 1d 133 lb 9 oz (+17 lb 9 oz) 104/82 Negative -?-?-?-?-?-?-?-?-?-?-?-?- Negative 138 35 -?-?-?-?-?-?-?-?-?-?-?-?- MH-No VB, LOF or CTX. Good FM. GBS. Declines internal exam today ACOG First Trimester First Trimester: Desire for , Alcohol, Tobacco Cessation, Illicit/Recreational Drug/Substance Use, Intimate Partner Violence, Barriers to care, Unstable Housing, Communication Barriers, Environmental/Work Hazards, Anticipated Course of Care, Toxoplasmosis Precations, Use of Any medications, Sexual activity, Exercise, Dental Care, Sauna/Hot tub use, Seat Belt use, Childbirth classes/Hospital facilities, Travel, Indications for Ultrasound and Screening for Aneuploidy; Discussed Second Trimester Second Trimester: Signs and Symptoms of Labor, Selecting a care provider, Reproductive Life Planning & Contreception, Care Planning, Depression/Anxiety and Intimate Partner Violence; Discussed Tobacco Cessation Third Trimester Third Trimester: Pain Management Plans, Labor support person(s), Immediate Larc, Movement Monitoring, Signs and Symptoms of Preeclampsia, Feeding No , Education and Family Medical Leave or Disability Forms ROS Const Reports system reviewed and no additional complaints, except as documented GI Denies abdominal pain, Denies nausea and Denies vomiting Exam Const General: cooperative Nutritional Appearance: well nourished GI Palpation: soft, nontender and other (gravid) Results POC Urinalysis 2 Dip (Clinic) Office Urine Glucose Negative Last Edit by Ramya Weems on 03/14/25 09 :52 Office Urine Protein Negative Last Edit by Ramya Weems on 03/14/25 09 :52 Coding Level of Care Code Off vis,est,level 3 Diagnoses Encounter for supervision of other normal in third trimester Z34.83 Normal : other normal Trimester: third trimester 36 weeks gestation of Z3A.36 Weeks of gestation: 36 weeks Rubella non-immune status, antepartum O09.899; Z28.39 Previous delivery affecting O34.219 Small for gestational age due to malnutrition P05.10 Hx successful (vaginal after ), currently O34.219 Assessment and Plan Assessment and Plan (1) Supervision of normal : Status: Acute Qualifiers: Normal : other normal Trimester: third trimester Qualified Code(s): Z34.83 - Encounter for supervision of other normal , third trimester Comment: PRR , MILENA 04/10/25,girl PC Michaela Epps, Raciel (2) : Status: Acute Qualifiers: Weeks of gestation: 36 weeks Qualified Code(s): Z3A.36 - 36 weeks gestation of Comment: declined NIPT & Carrier testing. nl anatomy. (3) Rubella non-immune status, antepartum: Status: Acute Comment: MMR pp (4) Previous delivery affecting : Status: Acute Comment: desires (5) Small for gestational age due to malnutrition: Status: Acute Comment: 35% on US 03/11 (6) Hx successful (vaginal after ), currently : Status: Acute Orders: Orders POC Urinalysis 2 Dip (Clinic) Today Culture, Group B Streptococcus Today Z34.83 - Encounter for supervision of other normal , third trimester Plan problem list reviewed and updated for most current plan of care and appropriate orders placed. Relevant counseling for the gestational age appropriate provided and ACOG education checklist updated. Continue routine care and follow up. 03/14/25 0958 <Electronically signed by Smiley rangel DISTRICT ADVISER DISTRICT ADVISER-C> Date _ Smiley Conte NP DISTRICT ADVISER-C Cosigner Signature: Date (if applicable) CC: ~ [facility] [facility] Work Phone: Reason for referral (narrative)No reason for referral information availableWCincinnati VA [facility] Center Work Phone: Summary Purpose Family History No Family History Records FoundNo Family History Records FoundNo Family History Records FoundNo Family History Records FoundNo Family History Records Found Advance Directives Advance Directive Response Recorded Date/ Time Living Will No September 17, 2022 5:50am Power of Special Needs Caregiver No September 17 5:50am Chief Complaint and Reason for Visit Chief Complaint NOB LMP 6/ Reason for Visit History of section Supervision of normal Chief Complaint NOB LMP 6 17 weeks 21wk ob 24 WK OB Reason for Visit History of section Supervision of normal History of section Supervision of normal History of section Supervision of normal History of section Supervision of normal Chief Complaint 24 WK OB 31 WK OB, declined sooner appointments 33 WK OB est ob 37 WK OB 38 WK OB 39 WK OB VAG VAG Reason for Visit History of section Supervision of normal History of section Rubella non-immune status, antepartum Supervision of normal History of section Rubella non-immune status, antepartum Supervision of normal History of section Rubella non-immune status, antepartum Supervision of normal Vaginal after History of section Rubella non-immune status, antepartum Supervision of normal History of section Rubella non-immune status, antepartum Supervision of normal History of section Rubella non-immune status, antepartum Supervision of normal History of section Rubella non-immune status, antepartum Supervision of normal Vaginal after Chief Complaint Admit Date New OB, LMP 12/18 MILENA 04/10/25 August 192024 10:42am Reason for Visit Admit Date Hx successful (vaginal after ), currently September 14, 2024 10:42am September 14, 2024 10:42am Supervision of normal September 14, 2024 10:42am Chief Complaint Admit Date New OB, LMP 18 MILENA 04/10/25 August 192024 10:42am 14 wk OB October 12, 2024 10: 11am 18wk ob November 06, 2024 9:4 3am 22wk ob December 07, 2024 10:47 am 28wk ob/glucose *timothy from 12/31January 102024 3:32pm Reason for Visit Admit Date Hx successful (vaginal after ), currently September 14, 2024 10:42am September 14, 2024 10:42am Supervision of normal September 14, 2024 10:42am Hx successful (vaginal after ), currently October 12, 2024 10:11am October 12, 2024 10: 11am Rubella non-immune status, antepartum [facility] 2024 10:11am Supervision of normal October 122024 10:11am Hx successful (vaginal after ), currently November 06, 2024 9:43am November 06, 2024 9:4 3am Previous delivery affecting pre gnancy November 06, 2024 9:43am Rubella non-immune status, antepartum Ap ril 2024 9:43am Supervision of normal November 062024 9:43am Hx successful (vaginal after ), currently December 07, 2024 10:47am December 07, 2024 10:47 am Previous delivery affecting pre gnancy December 07, 2024 10:47am Rubella non-immune status, antepartum Ma y 2024 10:47am Supervision of normal November 10:47am Hx successful (vaginal after ), currently January 10, 2025 3:32pm January 10, 2025 3:32 pm Previous delivery affecting pre gnancy January 10, 2025 3:32pm Rubella non-immune status, antepartum Ju ne 2024 3:32pm Supervision of normal December 3:32pm Chief Complaint Admit Date 14 wk OB October 12, 2024 10: 11am 18wk ob November 06, 2024 9:4 3am wk ob December 07, 2024 10:47 am 28wk ob/glucose *timothy from 12/31January 102024 3:32pm Reason for Visit Admit Date Hx successful (vaginal after ), currently October 12, 2024 10:11am October 12, 2024 10: 11am Rubella non-immune status, antepartum [facility] 2024 10:11am Supervision of normal October 122024 10:11am Hx successful (vaginal after ), currently November 06, 2024 9:43am November 06, 2024 9:4 3am Previous delivery affecting pre gnancy November 06, 2024 9:43am Rubella non-immune status, antepartum Ap ril 2024 9:43am Supervision of normal November 062024 9:43am Hx successful (vaginal after ), currently December 07, 2024 10:47am December 07, 2024 10:47 am Previous delivery affecting pre gnancy December 07, 2024 10:47am Rubella non-immune status, antepartum Ma y 2024 10:47am Supervision of normal November 10:47am Hx successful (vaginal after ), currently January 10, 2025 3:32pm January 10, 2025 3:32 pm Previous delivery affecting pre gnancy January 10, 2025 3:32pm Rubella non-immune status, antepartum Ju ne 2024 3:32pm Supervision of normal December 3:32pm Chief Complaint Admit Date 14 wk OB October 12, 2024 10: 11am 18wk ob November 06, 2024 9:4 3am 22wk ob December 07, 2024 10:47 am 28wk ob/glucose *timothy from 12/31January 102024 3:32pm 30wk ob January 23, 2025 9:56a m Reason for Visit Admit Date Hx successful (vaginal after ), currently October 12, 2024 10:11am October 12, 2024 10: 11am Rubella non-immune status, antepartum [facility] 2024 10:11am Supervision of normal October 122024 10:11am Hx successful (vaginal after ), currently November 06, 2024 9:43am November 06, 2024 9:4 3am Previous delivery affecting pre gnancy November 06, 2024 9:43am Rubella non-immune status, antepartum Ap ril 2024 9:43am Supervision of normal November 062024 9:43am Hx successful (vaginal after ), currently December 07, 2024 10:47am December 07, 2024 10:47 am Previous delivery affecting pre gnancy December 07, 2024 10:47am Rubella non-immune status, antepartum Ma y 2024 10:47am Supervision of normal November 10:47am Hx successful (vaginal after ), currently January 10, 2025 3:32pm January 10, 2025 3:32 pm Previous delivery affecting pre gnancy January 10, 2025 3:32pm Rubella non-immune status, antepartum Ju ne 26th, 2025 3:32pm Supervision of normal December 3:32pm Hx successful (vaginal after ), currently January 23, 2025 9:56am January 23, 2025 9:56a m Previous delivery affecting pre gnancy January 23, 2025 9:56am Rubella non-immune status, antepartum Ju ly 2024 9:56am Supervision of normal January 9:56am Chief Complaint Admit Date 14 wk OB October 12, 2024 10: 11am 18wk ob November 06, 2024 9:4 3am wk ob December 07, 2024 10:47 am wk ob/glucose *timothy from 12/31January 102024 3:32pm 30wk ob January 23, 2025 9:56a m 32wk ob February 05, 2025 9:26 am Reason for Visit Admit Date Hx successful (vaginal after ), currently October 12, 2024 10:11am October 12, 2024 10: 11am Rubella non-immune status, antepartum [facility] 2024 10:11am Supervision of normal October 122024 10:11am Hx successful (vaginal after ), currently November 06, 2024 9:43am November 06, 2024 9:4 3am Previous delivery affecting pre gnancy November 06, 2024 9:43am Rubella non-immune status, antepartum Ap ril 2024 9:43am Supervision of normal November 062024 9:43am Hx successful (vaginal after ), currently December 07, 2024 10:47am December 07, 2024 10:47 am Previous delivery affecting pre gnancy December 07, 2024 10:47am Rubella non-immune status, antepartum Ma y 2024 10:47am Supervision of normal November 10:47am Hx successful (vaginal after ), currently January 10, 2025 3:32pm January 10, 2025 3:32 pm Previous delivery affecting pre gnancy January 10, 2025 3:32pm Rubella non-immune status, antepartum Ju ne 2024 3:32pm Supervision of normal December 3:32pm Hx successful (vaginal after ), currently January 23, 2025 9:56am January 23, 2025 9:56a m Previous delivery affecting pre gnancy January 23, 2025 9:56am Rubella non-immune status, antepartum Ju ly 2024 9:56am Supervision of normal January 9:56am Hx successful (vaginal after ), currently February 05, 2025 9:26am February 05, 2025 9:26 am Previous delivery affecting pre gnancy February 05, 2025 9:26am Rubella non-immune status, antepartum Ju ly 2024 9:26am Supervision of normal January 9:26am Chief Complaint Admit Date 18wk ob November 06, 2024 9:4 3am wk ob December 07, 2024 10:47 am 28wk ob/glucose *timothy from 12/31January 102024 3:32pm 30wk ob January 23, 2025 9:56a m 31wk ob February 05, 2025 9:26 am 33wk ob February 21, 2025 9:4 3am Reason for Visit Admit Date Hx successful (vaginal after ), currently November 06, 2024 9:43am November 06, 2024 9:4 3am Previous delivery affecting pre gnancy November 06, 2024 9:43am Rubella non-immune status, antepartum Ap ril 2024 9:43am Supervision of normal November 062024 9:43am Hx successful (vaginal after ), currently December 07, 2024 10:47am December 07, 2024 10:47 am Previous delivery affecting pre gnancy December 07, 2024 10:47am Rubella non-immune status, antepartum Ma y 2024 10:47am Supervision of normal November 10:47am Hx successful (vaginal after ), currently January 10, 2025 3:32pm January 10, 2025 3:32 pm Previous delivery affecting pre gnancy January 10, 2025 3:32pm Rubella non-immune status, antepartum Ju ne 2024 3:32pm Supervision of normal December 3:32pm Hx successful (vaginal after ), currently January 23, 2025 9:56am January 23, 2025 9:56a m Previous delivery affecting pre gnancy January 23, 2025 9:56am Rubella non-immune status, antepartum Ju ly 2024 9:56am Supervision of normal January 9:56am Hx successful (vaginal after ), currently February 05, 2025 9:26am February 05, 2025 9:26 am Previous delivery affecting pre gnancy February 05, 2025 9:26am Rubella non-immune status, antepartum Ju ly 2024 9:26am Supervision of normal January 9:26am Hx successful (vaginal after ), currently February 21, 2025 9:43am February 21, 2025 9:4 3am Previous delivery affecting pre gnancy February 21, 2025 9:43am Rubella non-immune status, antepartum Au 2024 9:43am Small for gestational age due to m alnutrition February 21, 2025 9:43am Supervision of normal February 212024 9:43am Chief Complaint Admit Date wk ob December 07, 2024 10:47 am 28wk ob/glucose *timothy from 12/31January 102024 3:32pm 30wk ob January 23, 2025 9:56a m 31wk ob February 05, 2025 9:26 am 33wk ob February 21, 2025 9:4 3am 35wk ob March 07, 2025 9: 19am Reason for Visit Admit Date Hx successful (vaginal after ), currently December 07, 2024 10:47am December 07, 2024 10:47 am Previous delivery affecting pre gnancy December 07, 2024 10:47am Rubella non-immune status, antepartum Ma y 2024 10:47am Supervision of normal November 10:47am Hx successful (vaginal after ), currently January 10, 2025 3:32pm January 10, 2025 3:32 pm Previous delivery affecting pre gnancy January 10, 2025 3:32pm Rubella non-immune status, antepartum Ju ne 2024 3:32pm Supervision of normal December 3:32pm Hx successful (vaginal after ), currently January 23, 2025 9:56am January 23, 2025 9:56a m Previous delivery affecting pre gnancy January 23, 2025 9:56am Rubella non-immune status, antepartum Ju ly 2024 9:56am Supervision of normal January 9:56am Hx successful (vaginal after ), currently February 05, 2025 9:26am February 05, 2025 9:26 am Previous delivery affecting pre gnancy February 05, 2025 9:26am Rubella non-immune status, antepartum Ju ly 2024 9:26am Supervision of normal January 9:26am Hx successful (vaginal after ), currently February 21, 2025 9:43am February 21, 2025 9:4 3am Previous delivery affecting pre gnancy February 21, 2025 9:43am Rubella non-immune status, antepartum [facility] 2024 9:43am Small for gestational age due to m alnutrition February 21, 2025 9:43am Supervision of normal February 212024 9:43am Hx successful (vaginal after ), currently March 07, 2025 9:19am March 07, 2025 9: 19am Previous delivery affecting pre gnancy March 07, 2025 9:19am Rubella non-immune status, antepartum [facility] 2024 9:19am Small for gestational age due to m alnutrition March 07, 2025 9:19am Supervision of normal February 162024 9:19am Chief Complaint Admit Date wk ob December 07, 2024 10:47 am 28wk ob/glucose *timothy from 12/31January 102024 3:32pm 30wk ob January 23, 2025 9:56a m 31wk ob February 05, 2025 9:26 am 33wk ob February 21, 2025 9:4 3am 35wk ob March 07, 2025 9: 19am 36wk ob March 14, 2025 9: 42am Reason for Visit Admit Date Hx successful (vaginal after ), currently December 07, 2024 10:47am December 07, 2024 10:47 am Previous delivery affecting pre gnancy December 07, 2024 10:47am Rubella non-immune status, antepartum Ma y 2024 10:47am Supervision of normal November 10:47am Hx successful (vaginal after ), currently January 10, 2025 3:32pm January 10, 2025 3:32 pm Previous delivery affecting pre gnancy January 10, 2025 3:32pm Rubella non-immune status, antepartum Ju ne 2024 3:32pm Supervision of normal December 3:32pm Hx successful (vaginal after ), currently January 23, 2025 9:56am January 23, 2025 9:56a m Previous delivery affecting pre gnancy January 23, 2025 9:56am Rubella non-immune status, antepartum Ju ly 2024 9:56am Supervision of normal January 9:56am Hx successful (vaginal after ), currently February 05, 2025 9:26am February 05, 2025 9:26 am Previous delivery affecting pre gnancy February 05, 2025 9:26am Rubella non-immune status, antepartum Ju ly 2024 9:26am Supervision of normal January 9:26am Hx successful (vaginal after ), currently February 21, 2025 9:43am February 21, 2025 9:4 3am Previous delivery affecting pre gnancy February 21, 2025 9:43am Rubella non-immune status, antepartum Au [facility] 2024 9:43am Small for gestational age due to m alnutrition February 21, 2025 9:43am Supervision of normal February 212024 9:43am Hx successful (vaginal after ), currently March 07, 2025 9:19am March 07, 2025 9: 19am Previous delivery affecting pre gnancy March 07, 2025 9:19am Rubella non-immune status, antepartum Au 2024 9:19am Small for gestational age due to m alnutrition March 07, 2025 9:19am Supervision of normal February 162024 9:19am Hx successful (vaginal after ), currently March 14, 2025 9:42am March 14, 2025 9: 42am Previous delivery affecting pre gnancy March 14, 2025 9:42am Rubella non-immune status, antepartum Au [facility] 2024 9:42am Small for gestational age due to m alnutrition March 14, 2025 9:42am Supervision of normal February 162024 9:42am Additional Source Comments INFORMATION SOURCE (unrecogn ized section and content) DATE CREATED AUTHOR 10/07/2020 [facility] ([place]) DATE CREATED AUTHOR AUTHOR'S ORGANIZ ATION 04/18/2022 [facility] DATE CREATED AUTHOR AUTHOR'S ORGANIZ ATION 12/23/2024 [facility] DATE CREATED AUTHOR AUTHOR'S ORGANIZ ATION 03/08/[address] [facility] DATE CREATED AUTHOR AUTHOR'S ORGANIZ ATION 03/12/2025 [facility] Goals (unrecognized section and content) Goals may be documented in a n alternate sectionGoals may be documented in an alternate sectionGoals may be documented in an alternate sectionGoals may be documented in an alternate sectionGoals may be documented in an alternate sectionGoals may be documented in an alternate sectionGoals may be documented in an alternate sectionGoals may be documented in an alternate sectionGoals may be documented in an alternate sectionGoals may be documented in an alternate section Source Comments (unrecognize d section and content) In the event this informatio n is protected by the [facility] Confidentiality of Alcohol and Drug Abuse Patient Records regulations: The Federal rules restrict any use of the information to criminally investigate or prosecute any alcohol or drug abuse patient.[facility] Reason for Visit (unrecogniz ed section and content) Reason Comments Rash Care Teams (unrecognized sec tion and content) Team Status: Active Member Role Status Dates No Primary Care Physician Primary Care Provider Active Team Status: Inactive Member Role Status Dates No Primary Care Physician Primary Care Provider, Refer ring Provider Active Shakira Bermudez CNM Attending Provider Active Team Status: Inactive Member Role Status Dates No Primary Care Physician Primary Care Provider, Refer ring Provider Active Dr. Chichi Jimenez DO Attending Provider Activ e Team Status: Inactive Member Role Status Dates No Primary Care Physician Primary Care Provider, Refer ring Provider Active Smiley Conte DISTRICT ADVISER, DISTRICT ADVISER-C Attending Provider Active Team Status: Inactive Member Role Status Dates No Primary Care Physician Primary Care Provider, Refer ring Provider Active Dr. Tiki Dillon MD Attending Provider Active Team Status: Active Member Role Status Dates No Primary Care Physician Primary Care Provider Active Smiley Conte DISTRICT ADVISER, DISTRICT ADVISER-C Referring Provider, Other Prov ider Active Dr. Tiki Dillon MD Attending Provider Active Team Status: Active Member Role Status Dates No Primary Care Physician Primary Care Provider Active Dr. Tiki Dillon MD Admit Provider, Other Prov ider Active Dr. Chichi Jimenez DO Attending Provider Activ e Team Status: Inactive Member Role Status Dates No Primary Care Physician Primary Care Provider Active Dr. Tiki Dillon MD Attending Provider, Referr ing Provider Active Dr. Chichi Jimenez DO Other Provider Active Team Status: Inactive Member Role Status Dates No Primary Care Physician Primary Care Provider Active Smiley Conte DISTRICT ADVISER, DISTRICT ADVISER-C Attending Provider, Referring Provider Active Team Status: Inactive Member Role Status Dates No Primary Care Physician Primary Care Provider Active Dr. Tiki Dillon MD Admit Provider, Attending Provider Active Team Status: Inactive Member Role Status Dates No Primary Care Physician Primary Care Provider Active Start: September 14, 2024 End: September 14, 2024 No Primary Care Physician Referring Provider Active Start: September 14, 2024 End: September 14, 2024 Mounika Treviño CNM Attending Provider Active S tart: September 14, 2024 End: September 14, 2024 Team Status: Inactive Member Role Status Dates No Primary Care Physician Primary Care Provider Active Start: September 14, 2024 End: September 14, 2024 Mounika Treviño CNM Attending Provider Active S tart: September 14, 2024 End: September 14, 2024 Mounika Treviño CNM Referring Provider Active S tart: September 14, 2024 End: September 14, 2024 Team Status: Inactive Member Role Status Dates No Primary Care Physician Primary Care Provider Active Start: October 12, 2024 End: October 12, 2024 No Primary Care Physician Referring Provider Active Start: October 12, 2024 End: October 12, 2024 Smiley Conte NP DISTRICT ADVISER-C Attending Provider Active Start: October 12, 2024 End: October 12, 2024 Team Status: Inactive Member Role Status Dates No Primary Care Physician Primary Care Provider Active Start: November 06, 2024 End: November 06, 2024 No Primary Care Physician Referring Provider Active Start: November 06, 2024 End: November 06, 2024 Dr. Tiki Dillon MD Attending Provider Active Start: November 06, 2024 End: November 06, 2024 Team Status: Inactive Member Role Status Dates No Primary Care Physician Primary Care Provider Active Start: December 07, 2024 End: December 07, 2024 No Primary Care Physician Referring Provider Active Start: December 07, 2024 End: December 07, 2024 Dr. Chichi Jimenez DO Attending Provider Activ e Start: December 07, 2024 End: December 07, 2024 Team Status: Inactive Member Role Status Dates No Primary Care Physician Primary Care Provider Active Start: January 10, 2025 End: January 10, 2025 No Primary Care Physician Referring Provider Active Start: January 10, 2025 End: January 10, 2025 Smiley Conte NP DISTRICT ADVISER-C Attending Provider Active Start: January 10, 2025 End: January 10, 2025 Team Status: Active Member Role Status Dates No Primary Care Physician Primary Care Provider Active Start: January 10, 2025 Dr. Chichi Jimenez , DO Attending Provider Activ e Start: January 10, 2025 Dr. Chichi Jimenez , DO Referring Provider Activ e Start: January 10, 2025 Team Status: Active Member Role/Relationship Status Dates No Primary Care Physician Primary Care Provider Active Team Status: Inactive Member Role/Relationship Status Dates No Primary Care Physician Primary Care Provider Active Start: October 12, 2024 End: October 12, 2024 No Primary Care Physician Referring Provider Active Start: October 12, 2024 End: October 12, 2024 Smiley Conte NP DISTRICT ADVISER-C Attending Provider Active Start: October 12, 2024 End: October 12, 2024 Team Status: Inactive Member Role/Relationship Status Dates No Primary Care Physician Primary Care Provider Active Start: November 06, 2024 End: November 06, 2024 No Primary Care Physician Referring Provider Active Start: November 06, 2024 End: November 06, 2024 Dr. Tiki Dillon MD Attending Provider Active Start: November 06, 2024 End: November 06, 2024 Team Status: Inactive Member Role/Relationship Status Dates No Primary Care Physician Primary Care Provider Active Start: December 07, 2024 End: December 07, 2024 No Primary Care Physician Referring Provider Active Start: December 07, 2024 End: December 07, 2024 Dr. Chichi Jimenez , DO Attending Provider Activ e Start: December 07, 2024 End: December 07, 2024 Team Status: Inactive Member Role/Relationship Status Dates No Primary Care Physician Primary Care Provider Active Start: January 10, 2025 End: January 10, 2025 No Primary Care Physician Referring Provider Active Start: January 10, 2025 End: January 10, 2025 Smiley Conte NP DISTRICT ADVISER-C Attending Provider Active Start: January 10, 2025 End: January 10, 2025 Team Status: Inactive Member Role/Relationship Status Dates No Primary Care Physician Primary Care Provider Active Start: January 10, 2025 End: January 10, 2025 Dr. Chichi Jimenez , DO Attending Provider Activ e Start: January 10, 2025 End: January 10, 2025 Dr. Chichi Jimenez DO Referring Provider Activ e Start: January 10, 2025 End: January 10, 2025 Team Status: Inactive Member Role/Relationship Status Dates No Primary Care Physician Primary Care Provider Active Start: January 23, 2025 End: January 23, 2025 No Primary Care Physician Referring Provider Active Start: January 23, 2025 End: January 23, 2025 Smiley Conte DISTRICT ADVISER, DISTRICT ADVISER-C Attending Provider Active Start: January 23, 2025 End: January 23, 2025 Team Status: Inactive Member Role/Relationship Status Dates No Primary Care Physician Primary Care Provider Active Start: February 05, 2025 End: February 05, 2025 No Primary Care Physician Referring Provider Active Start: February 05, 2025 End: February 05, 2025 Dr. Tiki Dillon MD Attending Provider Active Start: February 05, 2025 End: February 05, 2025 Team Status: Inactive Member Role/Relationship Status Dates No Primary Care Physician Primary Care Provider Active Start: November 06, 2024 End: November 06, 2024 No Primary Care Physician Referring Provider Active Start: November 06, 2024 End: November 06, 2024 Dr. Tiki Dillon MD Attending Provider Active Start: November 06, 2024 End: November 06, 2024 Team Status: Inactive Member Role/Relationship Status Dates No Primary Care Physician Primary Care Provider Active Start: December 07, 2024 End: December 07, 2024 No Primary Care Physician Referring Provider Active Start: December 07, 2024 End: December 07, 2024 Dr. Cihchi Jimenez DO Attending Provider Activ e Start: December 07, 2024 End: December 07, 2024 Team Status: Inactive Member Role/Relationship Status Dates No Primary Care Physician Primary Care Provider Active Start: January 10, 2025 End: January 10, 2025 No Primary Care Physician Referring Provider Active Start: January 10, 2025 End: January 10, 2025 Smiley Conte NP, DISTRICT ADVISER-C Attending Provider Active Start: January 10, 2025 End: January 10, 2025 Team Status: Inactive Member Role/Relationship Status Dates No Primary Care Physician Primary Care Provider Active Start: January 10, 2025 End: January 10, 2025 Dr. Chichi Vande Velde , DO Attending Provider Activ e Start: January 10, 2025 End: January 10, 2025 Dr. Chichi Jimenez , DO Referring Provider Activ e Start: January 10, 2025 End: January 10, 2025 Team Status: Inactive Member Role/Relationship Status Dates No Primary Care Physician Primary Care Provider Active Start: January 23, 2025 End: January 23, 2025 No Primary Care Physician Referring Provider Active Start: January 23, 2025 End: January 23, 2025 Smiley Conte NP DISTRICT ADVISER-C Attending Provider Active Start: January 23, 2025 End: January 23, 2025 Team Status: Inactive Member Role/Relationship Status Dates No Primary Care Physician Primary Care Provider Active Start: February 05, 2025 End: February 05, 2025 No Primary Care Physician Referring Provider Active Start: February 05, 2025 End: February 05, 2025 Dr. Tiki Dillon MD Attending Provider Active Start: February 05, 2025 End: February 05, 2025 Team Status: Inactive Member Role/Relationship Status Dates No Primary Care Physician Primary Care Provider Active Start: February 21, 2025 End: February 21, 2025 No Primary Care Physician Referring Provider Active Start: February 21, 2025 End: February 21, 2025 Dr. Chichi Jimenez , DO Attending Provider Activ e Start: February 21, 2025 End: February 21, 2025 Team Status: Inactive Member Role/Relationship Status Dates No Primary Care Physician Primary Care Provider Active Start: December 07, 2024 End: December 07, 2024 No Primary Care Physician Referring Provider Active Start: December 07, 2024 End: December 07, 2024 Dr. Chichi Jimenez , Attending Provider Activ e Start: December 07, 2024 End: December 07, 2024 Team Status: Inactive Member Role/Relationship Status Dates No Primary Care Physician Primary Care Provider Active Start: January 10, 2025 End: January 10, 2025 No Primary Care Physician Referring Provider Active Start: January 10, 2025 End: January 10, 2025 Smiley Conte NP, NP-C Attending Provider Active Start: January 10, 2025 End: January 10, 2025 Team Status: Inactive Member Role/Relationship Status Dates No Primary Care Physician Primary Care Provider Active Start: January 10, 2025 End: January 10, 2025 Dr. Chichi Jimenez DO Attending Provider Activ e Start: January 10, 2025 End: January 10, 2025 Dr. Chichi Jimenez DO Referring Provider Activ e Start: January 10, 2025 End: January 10, 2025 Team Status: Inactive Member Role/Relationship Status Dates No Primary Care Physician Primary Care Provider Active Start: January 23, 2025 End: January 23, 2025 No Primary Care Physician Referring Provider Active Start: January 23, 2025 End: January 23, 2025 Smiley Conte NP DISTRICT ADVISER-C Attending Provider Active Start: January 23, 2025 End: January 23, 2025 Team Status: Inactive Member Role/Relationship Status Dates No Primary Care Physician Primary Care Provider Active Start: February 05, 2025 End: February 05, 2025 No Primary Care Physician Referring Provider Active Start: February 05, 2025 End: February 05, 2025 Dr. Tiki Dillon MD Attending Provider Active Start: February 05, 2025 End: February 05, 2025 Team Status: Inactive Member Role/Relationship Status Dates No Primary Care Physician Primary Care Provider Active Start: February 21, 2025 End: February 21, 2025 No Primary Care Physician Referring Provider Active Start: February 21, 2025 End: February 21, 2025 Dr. Chichi Jimenez DO Attending Provider Activ e Start: February 21, 2025 End: February 21, 2025 Team Status: Inactive Member Role/Relationship Status Dates No Primary Care Physician Primary Care Provider Active Start: March 07, 2025 End: March 07, 2025 No Primary Care Physician Referring Provider Active Start: March 07, 2025 End: March 07, 2025 Mounika Treviño CNM Attending Provider Active S tart: March 07, 2025 End: March 07, 2025 Team Status: Inactive Member Role/Relationship Status Dates No Primary Care Physician Primary Care Provider Active Start: March 14, 2025 End: March 14, 2025 No Primary Care Physician Referring Provider Active Start: March 14, 2025 End: March 14, 2025 Smiley Conte NP DISTRICT ADVISER-C Attending Provider Active Start: March 14, 2025 End: March 14, 2025 FOR RECORDS PERTAINING TO PATIENTS WHO ARE OR HAVE BEEN ENROLLED IN A CHEMICAL DEPENDENCY/SUBSTANCEABUSE PROGRAM, SOME INFORMATION MAY BE OMITTED. This clinical summary was aggregated from multiple sources. Caution should be exercised in using it in the provision of clinical care. This summary normalizes information from multiple sources, and as a consequence, information in this document may materially change the coding, format and clinical context of patient data. In addition, data may be omitted in some cases. CLINICAL DECISIONS SHOULD BE BASED ON THE PRIMARY CLINICAL RECORDS. [facility] provides no warranty or guarantee of the accuracy or completeness of information in this document.
== END | disposition home or self-care (01) ==
LOC: LABSPEC 11:58
PROVIDERS: Visit Provider Nurse Practitioner Women's Health
DX: Z34.83 Encounter for supervision of other normal pregnancy, third trimester (principal)
CPT/HCPCS: 87081

== ENCOUNTER 2025-04-07 02:36 | Outpatient (CLI) | payer MEDICAID, SELFPAY ==
[2025-04-07 02:43] VITALS: BMI 26.0
[2025-04-07 02:48] VITALS: BP 122/76; PULSE 73; RESP 16; TEMP 36.4
--- NOTE | 2025-04-07 09:22 | OB.TRI.PN ---
Progress Notes Date of Service: 04/07/25 Progress Note: Patient presents for triage evaluation secondary to uterine contractions at 39 weeks FHT: 130 Moderate variability reactive no decelerations category I tracing [place]: regular but mild Contractions Assessment and plan: no cervical change in 3 hours, Reactive NST, reassuring maternal and status patient discharged to home to follow-up in office. See problem list details for additional plan information. Charges/Coding Multi Select Codes Urinary/Genital Urinary/Genital CPT Codes: 06050-80 non-stress test Interp Assessment & Plan (1) Uterine contractions: COMMENT: reactive NST, no cervical change, d/c home (2) Uterine size date discrepancy : (3) Small for gestational age due to malnutrition: COMMENT: 35% on US 03/11 (4) Previous delivery affecting : COMMENT: desires (5) Rubella non-immune status, antepartum: COMMENT: MMR pp (6) Supervision of normal : QUALIFIERS: Normal : other normal Trimester: third trimester Qualified Code(s): Z34.83 - Encounter for supervision of other normal , third trimester COMMENT: PRR , MILENA 04/10/25,girl PC Michaela Epps, Raciel (7) : QUALIFIERS: Weeks of gestation: 39 weeks Qualified Code(s): Z3A.39 - 39 weeks gestation of COMMENT: Neg GBS. declined NIPT & Carrier testing. nl anatomy. (8) Hx successful (vaginal after ), currently :
== END 2025-04-07 06:20 | disposition home or self-care (01) ==
LOC: WPOUT 02:40 → WP 02:41
PROVIDERS: Visit Provider Advanced Practice Midwife
DX: O47.1 False labor at or after 37 completed weeks of gestation (principal); O26.843 Uterine size-date discrepancy, third trimester; O36.5930 Maternal care for other known or suspected poor fetal growth, third trimester, not applicable or unspecified; O34.219 Maternal care for unspecified type scar from previous cesarean delivery; O09.893 Supervision of other high risk pregnancies, third trimester; Z3A.39 39 weeks gestation of pregnancy
CPT/HCPCS: 59050; G0378 ×2; 99221

== ENCOUNTER 2025-04-10 09:41 | Inpatient (IN) | payer MEDICAID, SELFPAY ==
[2025-04-10] VITALS (34 sets, daily range): BP systolic 101–145; BP diastolic 56–76; PULSE 60–97; RESP 16–18; TEMP 36.4–37.2; O2SAT 93–100; BMI 25.9
[2025-04-10] MEDS: Lactated Ringers 1,000 ML 200 ML IV (11:00)
[2025-04-10 11:23] LABS: Hematocrit 32.9 % (37-47); Hemoglobin 10.7 g/dL (12.0-15.0); Immature Granulocytes Count 0.020 X10^3/uL (0.0-0.0); Mean Corp Hgb Conc 32.5 g/dL (32-36); Mean Corpuscular Volume 81.8 fL (81-99); Mean Platelet Vol. 9.8 fl (6.2-12.0); NRBC Flagged by Analyzer 0 % (0-5); Platelet Count 241 K/mm3 (150-450); RBC Distribution Width CV 13.2 % (11.6-14.6); RBC Distribution Width SD 39.7 fl (35.1-43.9); Red Blood Count 4.02 M/mm3 (4.2-5.4); White Blood Count 8.2 K/mm3 (4.4-11.0)
[2025-04-10] MEDS: LACTATED RINGERS 500 ML 999 ML IV (12:00)
[2025-04-10 12:59] LABS: Syphilis Antibodies Nonreactive (Nonreactive)
[2025-04-10] MEDS: fentaNYL-bupivacaine (epidural) 100 ML BAG EPIDURAL (13:08)
--- NOTE | 2025-04-10 13:56 | HP.PCM_ITS ---
History and Physical Date of Admission: 04/10/25 Vital Signs 02/05/2509:33 04/07/2502:43 04/10/2508:48 Height 5 ft 1 in 5 ft 1 in 5 ft 1 in Weight: 135 lb 5 oz BMI 25.5 BP 117/80 Intake Visit Reasons: 40wk ob *HAPPY DUE DATE Chief Complaint: 40wk OB Cured Meats Supervisor Required: No Is patient in pain?: No Allergies No Known Allergies Allergy (Verified 04/10/25 08:46) Medications ?Medication ?Instructions ?Recorded ?Confirmed ?Type multivit-min no.71-iron fum 28 2 cap PO DAILY vitamin 08/24/24 04/10/25 History mg-folate no.1 1 mg-dha 300 mg capsule (PNV-[place]) Last Menstrual Period: 07/04/24 : No PFSH PFSH Medical History Vaginal after Surgical History Hx of section Social History adopted: No household members: spouse and children housing: house number of children: 2 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: No pets and animals: No history of recent travel: No (December) sexually active: Yes Smoking Status: Never smoker second hand exposure: No alcohol intake: current alcohol intake frequency: holidays/special occasions only details: social occasions- Not while substance use type: does not use diet: lactose free well-balanced diet: daily or most days caffeine: Yes Type: coffee Number of servings: 1 eating out: 1-3 times/week during the past year weight has: remained stable what type of physical activity do you participate in: walking and other details: pilates frequency: 3-4 times per week duration: 45-60 minutes/day dustin/jewish: Yazdanism seatbelt use: always do you feel safe at home: Yes additional social history: Spouse - Raciel History 3 Elective abortions Hx Para 2 Spontaneous abortions Hx # Term Pregnancies Ectopic pregnancies Hx # Pregnancies Multiple births # of living children 2 Past Pregnancies Del. Date Name GA/Weeks Outcome Route Bth Weight Infant Gen Labor Lgth Anesthesia Del Locatn Provider FOB Unknown 06/16/20 Mich 40 live - full term 7# 15 oz Mal e [address] [facility] Bert Schrader 09/17/22 Michaela 39 live - full term 6# 11oz Female 5 -6 hrs none [facility] Naeem Schrader Delivery Date: Last Updated by: Hannah Strickland Emergency csection due to decels during pushing Delivery Date: 09/17/22 Last Updated by: Ami Lawrence SM HPI 40wk ob *HAPPY DUE DATE Details: MAREK GALINDO is a 29 year old who presents for active labor tolac srom clear fluid OB Visit MILENA Calculator ? Estimated Delivery Date Method Current WG Current Estimate 04/10/25 LMP (Certain) 40w 0d Other Estimates 04/09/25 Ultrasound #1 40w 1d Expected Delivery Route/Plan tolac patient counseled regarding risks/benefits of trial of labor versus repeat . ACOG/uptodate education given to patient. 93 % likelihood of success per calculator TOLAC consent form signed: [] Labor Preferences- CB/BF classes: no labor support person: Raciel labor intervention preferences: [] pain management options preferred: limited; short labor cut cord/dad catch: yes : yes PP control planned: discussed discussed possible routes of delivery and associated risks: [] special requests: [] Specific Issue/Plans Covid status: [] Flu vaccine: [] Tdap vaccine: declined Rhogam: na LARC form signed: yes movement and labor precautions reviewed Problem list reviewed and updated with the most current plan of care details and appropriate orders placed. Relevant counseling for the gestational age provided. Continue routine care and follow up unless otherwise noted in visit notes/problem list details Initial Weight: 116 lb Date -?-?-?-?-?-?-?-?-?-?-?-?- EGA Weight BP Urine Prot -?-?-?-?-?-?-?-?-?-?-?-?- Glucose FHR FuHt Pres Dilation -?-?-?-?-?-?-?-?-?-?-?-?- Effaced St Visit Note 09/14/24-?-?-?-?-?-?-?-?-?-?-?-?- 10w 2d 116 lb(+0 oz) 125/72 -?-?-?-?-?-?- ?-?-?-?-?-?- 159 ? ? -?-?-?-?-?-?-?-?-?-?-?-?- ? KW- CRL cons with dates. declines NIPT. 10/12/24-?-?-?-?-?-?-?-?-?-?-?-?- 14w 2d 117 lb 4 oz(+1 lb 4 oz) 118/80 Negative -?-?-?-?-?-?-?-?-?-?-?-?- Negative 163 ? ? -?-?-?-?-?-?-?-?-?-?-?-?- ? MH-No VB. Nausea continues but managable with B6. Enc add unisom. Declines AFP 11/06/24-?-?-?-?-?-?-?-?-?-?-?-?- 17w 6d 114 lb 8 oz(-1 lb 8 oz) 114/80 -?-?-?-?- ?-?-?-?-?-?-?-?- 150 ? ? -?-?-?-?-?-?-?-?-?-?-?-?- ? SM- no vb cramping 12/07/24-?-?-?-?-?-?-?-?-?-?-?-?- 22w 2d 123 lb(+7 lb) 104/66 Negative -?-? -?-?-?-?-?-?-?-?-?-?- Negative 140 22 ? -?-?-?-?-?-?-?-?-?-?-?- ?- ? JV- normal anatomy scan. no complaints. wants to . 01/10/25-?-?-?-?-?-?-?-?-?-?--?-?- 27w 1d 127 lb 2 oz(+11 lb 2 oz) 106/68 Negative -?-?-?-?-?-?-?-?-?-?-?-?- Negative 151 26 ? -?-?-?-?-?-?-?-?-?-?-?- ?- ? MH-No VB, LOF. Good FM. 28 wk labs pending. Larc 01/23/25-?-?-?-?-?-?-?-?-?-?-?-?- 29w 0d 127 lb 2 oz(+11 lb 2 oz) 100/62 -?-?-?-? -?-?-?-?-?-?-?-?- 145 28 ? -?-?-?-?-?-?-?-?-?-?-?- ?- ? MH-No VB, LOF. Good FM. Denies concerns 02/05/25-?-?-?-?-?-?-?-?-?-?-?-?- 30w 6d 128 lb 2 oz(+12 lb 2 oz) 115/71 Negative -?-?-?-?-?-?-?-?-?-?-?-?- Negative 140 31 ? -?-?-?-?-?-?-?-?-?-?-?- ?- ? SM- no vb lof good fm no reuglar ctx declined tdap 02/21/25-?-?-?-?-?-?-?-?-?-?-?-?- 33w 1d 131 lb 9 oz(+15 lb 9 oz) 121/75 Negative -?-?-?-?-?-?-?-?-?-?-?-?- Negative 131 31 ? -?-?-?-?-?-?-?-?-?-?-?- ?- ? JV- no lof, vaginal bleeding, or cramping other than round ligament pain. measuring a little small. growth scan ordered. TOLAC consent discussed and signed. 03/07/25-?-?-?-?-?-?-?-?-?-?-?-?- 35w 1d 133 lb 2 oz(+17 lb 2 oz) 104/64 Negative -?-?-?-?-?-?-?-?-?-?-?-?- Negative 150 33 ? -?-?-?-?-?-?-?-?-?-?-?- ?- ? KW- no vb/lof/ctx. good fm. GBS next visit. would like growth US through [facility]- ordered. 03/14/25-?-?-?-?-?-?-?-?-?-?-?-?- 36w 1d 133 lb 9 oz(+17 lb 9 oz) 104/82 Negative -?-?-?-?-?-?-?-?-?-?-?-?- Negative 138 35 ? -?-?-?-?-?-?-?-?-?-?-?- ?- ? MH-No VB, LOF or CTX. Good FM. GBS. Declines internal exam today 03/20/25-?-?-?-?-?-?-?-?-?-?-?-?- 37w 0d 135 lb 2 oz(+19 lb 2 oz) 106/69 Negative -?-?-?-?-?-?-?-?-?-?-?-?- Negative 135 35 Cephalic -?-?-?-?-?-?-?-? -?-?-?-?- ? KW- no vb/lof/ctx. good fm. no concerns today. declines vaginal exam today. KW- no vb/lof/ctx. good fm. no concerns today. declines vaginal exam today. US ordered for RUTH ANN. last growth on 03/11 was 35% with normal RUTH ANN. requesting through [facility]. 03/28/25-?-?-?-?-?-?-?-?-?-?-?-?- 38w 1d 134 lb 6 oz(+18 lb 6 oz) 117/77 Negative -?-?-?-?-?-?-?-?-?-?-?-?- Negative 125 36 Cephalic 1.5-?-?-?-?-?-?-?-?- ?-?-?-?- 50 -2 SM- n ovb lof good fm n o reuglar ctx 04/04/25-?-?-?-?-?-?-?-?-?-?-?-?- 39w 1d 136 lb 1 oz(+20 lb 1 oz) 105/74 -?-?-?-? -?-?-?-?-?-?-?-?- 156 38 Cephalic 2-?-?-?-?-?-?-?-?-?- ?-?-?- 60 -2 JV- no lof, vaginal bleed ing, or dec fm. membranes swept today but head is still ballotable. 04/10/25-?-?-?-?-?-?-?-?-?-?-?-?- 40w 0d 135 lb 5 oz(+19 lb 5 oz) 117/80 -?-?-?-? -?-?-?-?-?-?-?-?- 150 35 Cephalic 4.5-?-?-?-?-?-?-?-?- ?-?-?-?- ? SM- no vb lof good fm no regualr ctx checked and membranes ruptured with exam ACOG First Trimester First Trimester: Desire for , Alcohol, Tobacco Cessation, Illicit/Recreational Drug/Substance Use, Intimate Partner Violence, Barriers to care, Unstable Housing, Communication Barriers, Environmental/Work Hazards, Anticipated Course of Care, Toxoplasmosis Precations, Use of Any medications, Sexual activity, Exercise, Dental Care, Sauna/Hot tub use, Seat Belt use, Childbirth classes/Hospital facilities, Travel, Indications for Ultrasound and Screening for Aneuploidy; Discussed Second Trimester Second Trimester: Signs and Symptoms of Labor, Selecting a care provider, Reproductive Life Planning & Contreception, Care Planning, Depression/Anxiety and Intimate Partner Violence; Discussed Tobacco Cessation Third Trimester Third Trimester: Pain Management Plans, Labor support person(s), Immediate Larc, Movement Monitoring, Signs and Symptoms of Preeclampsia, Infant Feeding No , [place] Education and Family Medical Leave or Disability Forms ROS Const Reports system reviewed and no additional complaints, except as documented Card Reports system reviewed and no additional complaints, except as documented Resp Reports system reviewed and no additional complaints, except as documented GI Reports system reviewed and no additional complaints, except as documented and Reports nausea Reports system reviewed and no additional complaints, except as documented Musc Reports system reviewed and no additional complaints, except as documented Exam Const General: cooperative, healthy appearing, comfortable and anxious HENMT Head: normal to inspection Nose: external nose normal Face and sinus: normal facial exam Neck Neck: normal visual inspection, full ROM and no lymphadenopathy Thyroid: thyroid normal Chest Chest palpation & inspection: normal inspection of the chest Resp Effort & Inspection: normal respiratory effort GI Inspection: normal to inspection Palpation: soft and other (gravid uterus) Other: vertex and appropriate size for gestational age Other: Cervical Exam: Extrem General: pedal edema Coding Level of Care Code OB Routine Diagnoses Small for gestational age due to malnutrition P05.10 Previous delivery affecting O34.219 Rubella non-immune status, antepartum O09.899; Z28.39 Encounter for supervision of other normal in third trimester Z34.83 Normal : other normal Trimester: third trimester 40 weeks gestation of Z3A.40 Weeks of gestation: 40 weeks Hx successful (vaginal after ), currently O34.219 SROM (spontaneous rupture of membranes) Assessment and Plan Assessment and Plan (1) Small for gestational age due to malnutrition: Status: Acute Comment: 35% on US 03/11 (2) Previous delivery affecting : Status: Acute Comment: desires (3) Rubella non-immune status, antepartum: Status: Acute Comment: MMR pp (4) Supervision of normal : Status: Acute Qualifiers: Normal : other normal Trimester: third trimester Qualified Code(s): Z34.83 - Encounter for supervision of other normal , third trimester Comment: PRR , MILENA 04/10/25,girl PC Michaela Epps, Raciel (5) : Status: Acute Qualifiers: Weeks of gestation: 40 weeks Qualified Code(s): Z3A.40 - 40 weeks gestation of Comment: Neg GBS. declined NIPT & Carrier testing. nl anatomy. (6) Hx successful (vaginal after ), currently : Status: Acute (7) SROM (spontaneous rupture of membranes): Status: Acute Orders: Orders POC Urinalysis 2 Dip (Clinic) Today admit for active labor pit PRN epidural PRN UPDATE- I have seen the patient and performed any clinically relevant updates to the history and physical exam. Tiki Hartley MD
[2025-04-10] MEDS: Oxytocin 15 Units/NS 250ml 15 UNITS/250 ML IV.SOLN 334 UNITS IV (16:33)
[2025-04-10] MEDS: Oxytocin 15 Units/NS 250ml 15 UNITS/250 ML IV.SOLN 167 UNITS IV (17:18)
[2025-04-10] MEDS: Oxytocin 15 Units/NS 250ml 15 UNITS/250 ML IV.SOLN 83 UNITS IV (18:30)
--- NOTE | 2025-04-10 18:53 | EX.PCM.OBVAG ---
Assessment & Plan (1) Hx successful (vaginal after ), currently : (2) : QUALIFIERS: Weeks of gestation: 40 weeks Qualified Code(s): Z3A.40 - 40 weeks gestation of COMMENT: Neg GBS. declined NIPT & Carrier testing. nl anatomy. (3) Supervision of normal : QUALIFIERS: Normal : other normal Trimester: third trimester Qualified Code(s): Z34.83 - Encounter for supervision of other normal , third trimester COMMENT: PRR , MILENA 04/10/25,girl PC Michaela Epps, Raciel (4) Rubella non-immune status, antepartum: COMMENT: MMR pp (5) Previous delivery affecting : COMMENT: desires (6) Small for gestational age due to malnutrition: COMMENT: 35% on US 03/11 (7) Uterine size date discrepancy : (8) Uterine contractions: COMMENT: reactive NST, no cervical change, d/c home (9) SROM (spontaneous rupture of membranes): (10) Vaginal after : COMMENT: sm 40 IAL SROM oanh Mccoy Maternal Data Information MILENA Calculator Estimated Delivery Date Method Current WG Current Estimate 04/10/25 LMP (Certain) 40w 0d Other Estimates 04/09/25 Ultrasound #1 40w 1d Vaginal Delivery Maternal Presentation Maternal Presentation: see assessment and plan Vaginal Delivery Information Procedure Performed: Surgeon/Practitioner: Tiki Hartley Date of Procedure: 04/10/25 Pre-Procedure Diagnosis: see assessment and plan Post-Procedure Diagnosis: same Type of anesthesia: Epidural Findings Description of procedure: Patient began pushing and delivered the head in the HELENA presentation. The head was delivered atraumatically . The anterior and posterior shoulders delivered without complication followed by the rest of the infant and the infant was placed on the maternal abdomen. Delayed cord clamping was employed for approximately 60 seconds. Cord was clamped and cut and gentle traction was applied to the cord and the placenta delivered spontaneously immediately following it was noted to be intact with three-vessel cord. The perineum and vagina were inspected and noted to have no laceration. EBL was 100 cc. Patient and infant tolerated delivery well. 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
--- NOTE | 2025-04-10 18:54 | DCINST_ITS ---
Discharge Instructions DC O2, CPAP, BIPAP needs Home O2 Discharge instructions: No Dressing / Incision Discharge Activity: Return to Normal Activity, May Not Drive (while taking narcotic pain medications.) and May Shower May resume sexual activity in: 4-6 weeks Dressing / Incision Call your doctor if your incision/area has: Continuous Slow Oozing, Sudden Increased Bleeding, Increased Pain/ Swelling, Increased Redness and Foul Smelling Discharge Follow Up Care Please Follow Up With: Tiki Hartley MD When: Call [phone] to make an appointment with your doctor in 6 weeks. If you had elevated blood pressure or 4th degree laceration, you will need to be seen in 2 weeks. Test Results: Test results from this visit will be discussed in further detail at your follow- up appointment, if applicable. Discharge Plan Admission Admit Date/Time: 04/10/25 09:41 Attending Provider: Tiki Hartley Primary Care Provider: Care Physician,No Primary Discharge Orders/Prescriptions Prescriptions: No Action PNV-[place] 28-1-300 mg capsule 2 cap PO DAILY Referrals / Follow Up: Care Physician,No Primary [Primary Care Provider, Medical]
[2025-04-11] VITALS (8 sets, daily range): BP systolic 109–127; BP diastolic 60–69; PULSE 70–91; RESP 16–17; TEMP 36.2–36.6; O2SAT 97–99
--- NOTE | 2025-04-11 07:46 | PCM.PN.OB ---
Subjective Subjective Patient doing well without complaints. Tolerating PO. Ambulating and voiding without difficulty. Feeding well. Denies chest pain, shortness of breath, calf pain/swelling, fevers, chills, lightheadedness. Objective Data Objective Data Vital Signs: Vital Signs Temp Pulse Resp BP Pulse Ox O2 Del Method 97.1 F L 76 17 116/60 97 Room Air 04/11/25 04:00 04/11/25 04:07 04/11/25 04:00 04/11/25 04:07 04/11/25 04:00 04/11/25 04:00 Oxygen Delivery Method Room Air Weight: 137 lb 9.095 oz Body Mass Index (BMI) 25.9 Intake & Output: Intake and Output for Last 24 Hours 04/09/25 04/10/25 04/11/25 23:59 23:59 23:59 Intake Total 2237.0 / 2237.0 Output Total 1800 / 1800 Balance 437.0 / 437.0 Lab / Micro Data 04/10/25 11:00 Labs: Laboratory Results - last 24 hr 04/10/25 11:00: WBC 8.2, RBC 4.02 L, Hgb 10.7 L, Hct 32.9 L, MCV 81.8, MCH 26.6 L, MCHC 32.5, RDW Std Deviation 39.7, RDW Coeff of [place] 13.2, Plt Count 241, MPV 9.8, Immature Gran % (Auto) 0.200, Neut % (Auto) 77.2 H, Lymph % (Auto) 16.0 L, [place] % (Auto) 5.9, Eos % (Auto) 0.5, Baso % (Auto) 0.2, Absolute Neuts (auto) 6.3, Absolute Lymphs (auto) 1.31, Nucleated RBC % 0, Syphilis Total Ab Nonreactive, Blood Type A POSITIVE, Antibody Screen NEGATIVE Physical Exam Const alert and oriented x3 HEENT normocephalic Eyes PERRL Neck full ROM Resp normal respiratory effort GI soft to palpation GI Narrative: FF below U Assessment & Plan (1) Vaginal after : COMMENT: sm 40 IAL SROM girl Nadine (2) Rubella non-immune status, antepartum: COMMENT: MMR pp PLAN: Plan s/p PPD #1 1. routine post delivery care 2. breast feeding- support given 3. rh positive 4. rubella nonimmune-offer MMR 5. home today
--- NOTE | 2025-04-15 14:08 | NURSING ---
Attempted f/up phone call-- no ans, LVM.
== END 2025-04-11 17:55 | disposition home or self-care (01) | DRG 560 ==
PROVIDERS: Admitting Provider Obstetrics & Gynecology; Referring Provider Obstetrics & Gynecology; Visit Provider Obstetrics & Gynecology
DX: O34.219 Maternal care for unspecified type scar from previous cesarean delivery (principal); Z37.0 Single live birth; O36.5930 Maternal care for other known or suspected poor fetal growth, third trimester, not applicable or unspecified; O26.843 Uterine size-date discrepancy, third trimester; O42.92 Full-term premature rupture of membranes, unspecified as to length of time between rupture and onset of labor; Z3A.40 40 weeks gestation of pregnancy; Z87.59 Personal history of other complications of pregnancy, childbirth and the puerperium
CPT/HCPCS: 59025; 59050; 85025; 86780; 86850; 86900; 86901; 99221; G0378